=== PATIENT | female | born 1970 | race Caucasian/White ===

== ENCOUNTER 2024-11-18 08:30 | Inpatient (IN) | payer MEDICAID, SELFPAY ==
[2024-11-18] VITALS (9 sets, daily range): BP systolic 110–167; BP diastolic 61–95; PULSE 78–111; RESP 14–28; TEMP 36.4–36.9; O2SAT 88–98; BMI 31.8; BMI 35.4
--- NOTE | ~2024-11-18 | XR_ITS ---
EXAMINATION: XR CHEST CLINICAL INFORMATION: chest pain COMPARISON: None available. TECHNIQUE: 2 views of the chest were obtained. FINDINGS: Patchy opacity right middle lung lobe. No pneumothorax. No pleural effusion. Cardiomediastinal silhouette size is normal. Metallic plate, cervical spine and T1. XR/XR chest 2V IMPRESSION: Acute airspace disease/pneumonia, right middle lung lobe. Recommend follow-up until resolution since underlying lesion/malignancy cannot be excluded. Electronically signed by: Terell Bishop MD 11/18/2024 09:53 AM EDT
--- NOTE | 2024-11-18 08:29 | ED_ITS ---
HPI - General Adult General Chief complaint: Chest Pain Stated complaint: CP AND NAUSEA PER EMS Source: patient, EMS, RN notes reviewed and old records reviewed Mode of arrival: EMS History of Present Illness ED Provider: Medina HPI narrative: Patient is a 54-year-old female with unknown pmhx presenting from [facility] with complaint of cough, shortness of breath, chest pain, nausea, lower abdominal pain. Has felt weak/fatigued for past few weeks. Hypoxic on EMS arrival, improved with O2. Reports sweats/chills. Denies vomiting, diarrhea, constipation. MD complaint: cough, chest pain Related Data Allergies Allergy/AdvReac Type Severity Reaction Status Date / Time topiramate [From Topamax] Allergy Unknown Verified 11/18/24 08:45 trazodone Allergy Swelling Verified 11/18/24 08:45 Review of Systems 2 Review of Systems: As per HPI Yes all other systems are reviewed and are negative Constitutional: Constitutional: Reports as per HPI [facility] Past Medical History Medical History (Updated 11/18/24 @ 12:53 by NIMESH Santacruz) GERD (gastroesophageal reflux disease) ADHD Hypothyroidism Bipolar 1 disorder Social History Social History Advance Directives: No Advance Directives Information Provided: No Do you have a plan to hurt others: No Plan Physical Exam ED Vital Signs: Vital Signs - 24 hr 11/18/24 08:42 11/18/24 09:07 11/18/24 10:50 Temperature 97.6 F Pulse Rate 86 92 111 H Respiratory Rate 16 24 H 25 H Blood Pressure 117/87 131/95 H 138/95 H Pulse Oximetry 88 L 96 96 Oxygen Delivery Method Room Air Nasal Cannula Nasal Cannula Oxygen Flow Rate 2 2 11/18/24 11:38 Temperature 97.9 F Pulse Rate 110 H Respiratory Rate 28 H Blood Pressure 136/94 H Pulse Oximetry 95 Oxygen Delivery Method Nasal Cannula Oxygen Flow Rate 2 BMI result Body Mass Index 31.8 Vital signs have been reviewed and appear to be correct. Blood pressure normal. Heart rate normal. Respiratory rate normal. Temperature normal. Oxygen saturation hypoxic on room air. Const General: cooperative, no acute distress, alert, awake and ill appearing acutely Orientation/consciousness: oriented to person, oriented to place, oriented to time and patient oriented x3 Limitations: no limitations HENMT Head: Yes normocephalic and Yes atraumatic Ears: external ears normal General nose exam: Normal external nose present Face and sinus: Yes face symmetric Mouth: oropharynx normal and moist mucous membranes Throat: Yes uvula midline Eyes Pupils: Equal, round and reactive pupils present Neck Neck: Yes normal visual inspection and Yes supple Resp Effort & Inspection: normal respiratory effort and able to speak in complete sentences Auscultation: diminished lung sounds diffuse Cardio Rate: regular rate Rhythm: regular rhythm Heart sounds: S1 normal heart sound present and S2 normal heart sound present GI Palpation (GI): Soft to palpation and nontender Auscultation: normoactive bowel sounds General: Yes no CVA tenderness Back/Spine/Pelvis Back: no CVA tenderness Skin General skin exam: elasticity normal, turgor normal and pallor Neuro General: oriented to person, oriented to place, oriented to time, patient oriented x3, moves all extremities, no focal motor deficits and CN's II-XI intact bilaterally Cranial nerves: Yes Equal, round and reactive pupils present Cognition (Neuro): normal cognition Extrem General: Yes full ROM, Yes no pedal edema and Yes no calf tenderness Psych Mental Status: mental status grossly normal Affect: normal affect Thought process: Normal thought process present Medications Administered Generic Name Dose Route Start Last Admin Trade Name Freq PRN Reason Stop Dose Admin Enoxaparin Sodium 40 mg 11/18/24 12:00 11/18/24 13:40 Enoxaparin Sodium 40 Mg/0.4 Ml Syringe SUBCUT 40 mg Q24H MICHAEL Administration Discontinued Medications Generic Name Dose Route Start Last Admin Trade Name Freq PRN Reason Stop Dose Admin Ceftriaxone Sodium 1 gm 11/18/24 10:44 11/18/24 11:47 Ceftriaxone Sodium 1 Gm Vial IVPUSH 11/18/24 10:45 1 gm ONCE ONE Administration Doxycycline Hyclate 100 mg/ 250 mls @ 166.67 mls/hr 11/18/24 10:44 11/18/24 11:57 Sodium Chloride IV 11/18/24 12:13 166.67 mls/hr ONCE ONE Administration Ondansetron HCl 4 mg 11/18/24 09:09 11/18/24 09:16 Ondansetron Hcl 4 Mg/2 Ml Vial IVPUSH 11/18/24 09:10 4 mg ONCE ONE Administration Medical Decision Making Medical Decision Making MDM Narrative: Patient is a 54-year-old female with unknown pmhx presenting from [facility] with complaint of cough, shortness of breath, chest pain, nausea, lower abdominal pain. On exam patient is awake, A+Ox3, hypoxic on room air, VS otherwise WNL, afebrile, normal neurological exam without focal deficits, physical exam findings as above. Given reported symptoms and physical exam findings, initial differential includes but is not limited to viral illness, COVID, flu, RSV, bronchitis, pneumonia. Unlikely ACS. Labs notable for leukocytosis, negative troponin. X-ray chest notable for right middle lobe pneumonia. My interpretation is in agreement with the radiologist's interpretation. Blood cultures, lactic, and IV antibiotics ordered. Differential Diagnosis Differential Diagnoses: The differential diagnosis associated with the presentation includes As per [facility] Admission/Observation Consideration of admission/observation: Escalation of care including admission/observation considered Consult Healthcare Provider Management of the patient was discussed with: Hospitalist Lab Data [facility] Lab Attestation statement: I reviewed the patient's lab results. As per [facility] 11/18/24 09:03 11/18/24 09:03 Labs: Lab Results 11/18/24 11/18/24 11/18/24 Range/Units 09:03 11:18 11:33 WBC 13.7 H (4.8-10.8) X10*3/uL RBC 4.47 (4.20-5.50) X10*6/uL Hgb 12.8 (12.0-16.0) g/dl Hct 40.6 (37.0-47.0) % MCV 90.8 (80.0-98.0) fL MCH 28.6 (27.0-33.0) pg MCHC 31.5 (31.0-35.0) g/dl RDW 13.1 (11.0-16.0) % Plt Count 360 (160-400) X10*3/uL MPV 9.7 (9.4-12.3) fL Immature Gran % (Auto) 0.4 (0.0-0.4) % Neut % (Auto) 80.6 H (45-73) % Lymph % (Auto) 13.1 L (20-40) % [place] % (Auto) 3.8 (2-11) % Eos % (Auto) 1.6 (0-4) % Baso % (Auto) 0.5 (0-2) % Lymph # (Auto) 1.8 (1.2-4.9) X10*3/uL [place] # (Auto) 0.5 (0.1-1.2) X10*3/uL Eos # (Auto) 0.2 (0.0-0.4) X10*3/uL Baso # (Auto) 0.1 (0.0-0.2) X10*3/uL Abs Immat Gran (auto) 0.05 H (0.00-0.03) X10*3/uL Absolute Neuts (auto) 11.0 H (2.0-8.3) x10*3/uL Absolute Nucleated RBC 0.000 (0.0-0.012) X10*3/uL Nucleated RBC % (auto) 0.0 (0.0-0.2) /100WBC PT 10.9 (10.9-12.4) SEC INR 0.9 (0.9-1.1) Sodium 140 (135-145) mmol/L Potassium 4.3 (3.3-5.1) mmol/L Chloride 106 (96-108) mmol/L Carbon Dioxide 28 (22-29) mmol/L Anion Gap 10 L (12-20) BUN 10 (9-16) mg/dL Creatinine 1.00 (0.5-1.4) mg/dL Estim Creat Clear Calc 77.4 Estimated GFR 58 Random Glucose 117 H (60-115) mg/dL Lactic Acid 2.0 (0.5-2.0) mmol/L Calcium 9.5 (8.4-10.2) mg/dL Magnesium 2.0 (1.6-2.6) mg/dL Total Bilirubin 0.2 (0.0-1.0) mg/dL AST 34 H (5-31) U/L ALT 42 H (0-31) U/L Alkaline Phosphatase 94 (39-117) U/L Troponin I Hi Sens Base < 2.7 (<3.5-17.0) ng/L Troponin I Hi Sens 2 Hr < 2.7 (<3.5-17.0) ng/L B-Natriuretic Peptide < 10 (<100) pg/mL Total Protein 7.3 (6.5-8.0) g/dL Albumin 4.2 (3.5-5.0) g/dL Lipase 15 (8-78) U/L Influenza Type A (PCR) NEGATIVE (Negative) Influenza Type B (PCR) NEGATIVE (Negative) RSV RNA Qual (PCR) NEGATIVE (Negative) SARS-CoV-2 RNA (RT-PCR) NEGATIVE (Negative) Independent Interpretation I performed an independent interpretation of an: Plain X-Ray Interpretation: Chest x-ray notable for right middle lobe pneumonia Radiology Impression Discussion of test interpretation with radiology: I have reviewed the radiologist's reading. Radiologist Impression: ECHNIQUE: 2 views of the chest were obtained. FINDINGS: Patchy opacity right middle lung lobe. No pneumothorax. No pleural effusion. Cardiomediastinal silhouette size is normal. Metallic plate, cervical spine and T1. XR/XR chest 2V IMPRESSION: Acute airspace disease/pneumonia, right middle lung lobe. Recommend follow-up until resolution since underlying lesion/malignancy cannot be excluded. External Record Review External record reviewed: Inpatient record, Office record and Outpatient record Prescription Management I considered prescription management with: Antibiotic Discharge Plan Discharge Clinical Impression: Right middle lobe pneumonia Patient Disposition: Admitted As Inpatient
--- NOTE | 2024-11-18 08:30 | ECG_ITS ---
Test Reason : ABD PAIN Blood Pressure : */* mmHG Vent. Rate : 101 BPM Atrial Rate : 101 BPM P-R Int : 170 ms QRS Dur : 82 ms QT Int : 372 ms P-R-T Axes : 40 11 36 degrees QTcB Int : 482 ms Sinus tachycardia Low voltage QRS Nonspecific T wave abnormality Abnormal ECG No previous ECGs available Referred By: Valarie Haney Electronically Signed By: MIROSLAVA CLAY
--- NOTE | 2024-11-18 09:06 | PC.NURSE ---
20g IV access established in right AC. Labs obtained and sent to lab for analysis. Awaiting results.
[2024-11-18 09:07] LABS: MANUAL DIFF FLAG NO
--- NOTE | 2024-11-18 09:11 | PC.NURSE ---
Valarie Haney,[employer]UCC[employer] PLASTERER at bedside for evaluation. Plan to administer medication for nausea and obtain imaging. On 2LPM oxygen via nasal cannula at this time. Tachypnic. Alert & oriented, but drowsy/sleepy. Agreeable to plan of care. Provider agreed to give sips of water after nausea medication is administered.
[2024-11-18 09:12] LABS: Basophils Absolute Auto 0.1 X10*3/uL (0.0-0.2); Basophils Percent Auto 0.5 % (0-2); Eosinophils Absolute Auto 0.2 X10*3/uL (0.0-0.4); Eosinophils Percent Auto 1.6 % (0-4); Hematocrit 40.6 % (37.0-47.0); Hemoglobin 12.8 g/dl (12.0-16.0); Imm Gran Abs Auto 0.05 X10*3/uL (0.00-0.03); Imm Gran Pct Auto 0.4 % (0.0-0.4); Lymphocytes Absolute Auto 1.8 X10*3/uL (1.2-4.9); Lymphocytes Percent Auto 13.1 % (20-40); Mean Corpuscular HGB Conc 31.5 g/dl (31.0-35.0); Mean Corpuscular Hemoglobin 28.6 pg (27.0-33.0); Mean Corpuscular Volume 90.8 fL (80.0-98.0); Mean Platelet Volume 9.7 fL (9.4-12.3); Monocytes Absolute Auto 0.5 X10*3/uL (0.1-1.2); Monocytes Percent Auto 3.8 % (2-11); Neutrophils Percent Auto 80.6 % (45-73); Platelet Count 360 X10*3/uL (160-400); Red Blood Count 4.47 X10*6/uL (4.20-5.50); Red Cell Distribution Width 13.1 % (11.0-16.0); White Blood Count 13.7 X10*3/uL (4.8-10.8)
[2024-11-18] MEDS: ondansetron HCL 4 MG/2 ML VIAL IVPUSH (09:16)
[2024-11-18 09:20] LABS: INTERNATIONAL NORM RATIO 0.9 (0.9-1.1); Prothrombin Time 10.9 SEC (10.9-12.4)
[2024-11-18 09:37] LABS: Alanine Aminotransferase 42 U/L (0-31); Albumin Level 4.2 g/dL (3.5-5.0); Alkaline Phosphatase 94 U/L (39-117); Anion Gap 10 (12-20); Aspartate Amino Transferase 34 U/L (5-31); Bilirubin Total 0.2 mg/dL (0.0-1.0); Blood Urea Nitrogen 10 mg/dL (9-16); Calcium 9.5 mg/dL (8.4-10.2); Carbon Dioxide 28 mmol/L (22-29); Chloride 106 mmol/L (96-108); Creatinine Clr Calc Pharmacy 77.4; Estimated Glomerular Filt Rate 58; Glucose Random 117 mg/dL (60-115); Lipase 15 U/L (8-78); Potassium 4.3 mmol/L (3.3-5.1); Sodium 140 mmol/L (135-145); Total Protein 7.3 g/dL (6.5-8.0)
[2024-11-18 09:38] LABS: B Type Natriuretic Peptide < 10 pg/mL (<100)
[2024-11-18 09:47] LABS: Troponin-I High Sens Reflx 2hr < 2.7 ng/L (<3.5-17.0)
[2024-11-18 09:57] LABS: Influenza A PCR NEGATIVE (Negative); Influenza B PCR NEGATIVE (Negative); Resp Syncy Virus RNA Qual PCR NEGATIVE (Negative); SARS COV2 PCR INHOUSE NEGATIVE (Negative)
--- OUTSIDE RECORDS SUMMARY | 2024-11-18 10:06 | XMS_ITS | Encounter Summary ---
Author Organization [employer] Address [address] [place] [address] Care Team Providers Care Diamond Grinder Name Role Phone Leah Lewis Primary Care Provider [phone] Encounter Details Date Type Department Care Team (Late st Contact Info) Description 08/01/2024 Telephone [facility] [address] [place] [address] Leah Lewis FNP [address] [place] [address] Social History Tobacco Use Types Packs/Day Years Used Date Smoking Tobacco: Never Smokeless Tobacco: Never Alcohol Use Standard Drinks/Week Comments Never 0 (1 standard drink = 0.6 oz pur e alcohol) Alcohol Answer Date Recorded Q1: How often do you have a drink containing alc ohol? 1 05/10/2024 Q2: How many drinks containi ng alcohol do you have on a typical day when you are drinking? 0 05/10/2024 Q3: How often do you have six or more drinks on one occasion? 1 05/10/2024 Housing Stability Answer Date Recorded What is your housing situation today? I have connor stewart 05/10/[address] you li ve. Do you have problems with any of the following? None of the above 05/10/2024 Food Insecurity Answer Date Recorded Within the past 12 months, y ou worried that your food would run out before you got money to buy more: Never True 05/10/2024 Within the past 12 months,th e food you bought just didn't last and you didn't have enough money to get more: Never True Transportation Answer Date Recorded In the past 12 months, has l ack of transportation kept you from medical appts, meetings, work or from getting things needed for daily living? No 05/10/2024 Utilities Answer Date Recorded In the past 12 months, has t he electric, gas, oil or water company threatened to shut off services in your home? No 05/10/2024 Depression Answer Date Recorded Patient Health Questionnaire-2 Score 0 05/10/2024 Internet Access Answer Date Recorded Internet Access Q1 Yes 05/10/2024 Internet Access Q2 Not on file 05/10/2024 Comments Unknown Sex and Gender Information Value Date Recorded Sex Assigned at Female 03/11/2024 1:37 PM EDT Legal Sex Female 1:10 PM EDT Gender Identity Female 03/11/2024 1:37 PM EDT Sexual Orientation Straight 03/11/2024 1: 37 PM EDT documented as of this encounter Miscellaneous Notes * Telephone Encounter - Lamar Bullock - 08/08/2024 10:52 AM EST Processed and faxed Auth #[id number] Valid 08/08/24-08/08/25 Visits: 6 * Telephone Encounter - Samantha Bishop - 08/01/2024 2:00 PM EST Verified Insurance: Yes Referral Office: Dr Abebe in [place] Diagnosis Code: ear & deviated septum Number of Visits Needed:6 NPI# of Facility: NPI# of Provider being referred to: Phone #: Fax #: documented in this encounter Plan of Treatment Upcoming Encounters Date Type Department Care Team (Late st Contact Info) Description 11/21/2024 1:00 PM EDT Office Visit [address] [address] Leah Lewis FNP [address] [place] [phone] 12/26/2024 12:40 PM EDT Office Visit [address] [address] Leah Lewis FNP [address] [place] [address] 10/09/2025 1:00 PM EDT Office Visit [address] [address] Leah Lewis FNP [address] [place] [address] documented as of this encounter Visit Diagnoses Not on filedocumented in this encounter Care Teams Diamond Grinder Relationship Specialty Start Date End Date Leah Lewis FNP [address] [place] [address] PCP - General Family Medicine 03/11/24 documented as of this encounter
--- OUTSIDE RECORDS SUMMARY | 2024-11-18 10:06 | XMS_ITS | Encounter Summary ---
Author Organization [employer] Address [address] [place] [address] Care Team Providers Care Laundry Worker Name Role Phone Leah Lewis Primary Care Provider [phone] Encounter Details Date Type Department Care Team (Late st Contact Info) Description 06/02/2024 Orders Only [facility] [address] [place] [phone] Leah Lewis FNP [address] [place], [place] [phone] Social History Tobacco Use Types Packs/Day Years [...] PM EDT documented as of this encounter Plan of Treatment Upcoming Encounters Date Type Department Care Team (Late st Contact Info) Description 11/21/2024 1:00 PM EDT Office Visit [address] [address] Leah Lewis FNP [address] [place] [phone] 12/26/2024 12:40 PM EDT Office Visit [address] [address] Leah Lewis FNP [address] [place] [phone] 10/09/2025 1:00 PM EDT Office Visit [address] [address] Leah Lewis FNP [address] [place] [phone] documented as of this encounter Visit Diagnoses Not on filedocumented in this encounter Care Teams Laundry Worker Relationship Specialty Start Date End Date Leah Lewis FNP [address] [place] [phone] PCP - General Family Medicine 03/11/24 documented as of this encounter
--- OUTSIDE RECORDS SUMMARY | 2024-11-18 10:07 | XMS_ITS | Clinical Summary ---
Author Organization [employer] Address [address] [facility] 7t [place] [address] Care Team Providers Care Electroless Plater Name Role Phone Leah Lewis Primary Care Provider [phone] Allergies Active Allergy Reactions Criticality Noted Date Comments Topiramate Unknown 05/10/2024 Trazodone Unknown 05/10/2024 Medications Adderall 10 MG tablet Take 10 mg by mouth. 03/19/20 24 Active Wellbutrin SR 150 MG 12 hr tablet Take 150 mg by mouth. 12/04/19 18 Active clonazePAM (KlonoPIN) 1 MG tablet TAKE 1 TABLET BY MOUTH THREE TIMES A DAY DIRECTED Active lithium 300 MG capsule Take 300 mg by mouth. 03/19/20 24 Active omeprazole OTC (PriLOSEC OTC) 20 MG EC tablet Take 1 tablet (20 mg) by mouth 2 times daily. Do not crush, chew, or split. 84 tablet 11 05/10/20 24 025 Active acetaminophen (Tylenol) 500 MG tablet Take 2 tablets (1,000 mg) by mouth every 6 (six) hours if needed for moderate pain. 90 tablet 08/17/19 25 Active gabapentin (Neurontin) 300 MG capsuleIndication s:Low back pain at multiple sites Take 1 capsule (300 mg) by mouth if needed in the morning, at noon, in the evening, and at bedtime (prn). 90 capsule 11 10/08/19 25 026 Active levothyroxine (Synthroid) 125 MCG tabletIndications :Other specified hypothyroidism Take 1 tablet (125 mcg) by mouth before breakfast. 30 tablet 1 10/13/19 25 026 Active phentermine 15 MG capsuleIndication s:Class 1 obesity Take 1 capsule (15 mg) by mouth before breakfast. 30 capsule 11/04/19 25 025 Active Tirzepatide-Weigh t Management (Zepbound) 2.5 MG/0.5ML solution auto-injectorIndi cations:Obesity Inject 0.5 mL (2.5 mg) under the skin every 7 (seven) days for 28 days. 2 mL 11/09/19 25 025 Active phentermine 15 MG capsuleIndication s:Class 1 obesity Take 1 capsule (15 mg) by mouth before breakfast. 30 capsule 11/02/19 25 025 Discontinued(R eorder (will not trigger notification to Pharmacy)) Active Problems Problem Noted Date Diagnosed Date Dysplasia of cervix 06/21/2024 Dysmenorrhea 06/21/2024 Deviated nasal septum 06/21/2024 Cyst of ovary 06/21/2024 Constipation 06/21/2024 Cocaine dependence, episodic 06/21/2024 Class 1 obesity 06/21/2024 Dysuria 06/21/2024 Excoriation 06/21/2024 Fibromyositis 06/21/2024 Perineal pain 06/21/2024 Neck pain 06/21/2024 Methicillin resistant Staphylococcus aureus infe ction 06/21/2024 Postoperative pain 06/21/2024 Pyelonephritis 06/21/2024 Renal colic 06/21/2024 Right lower quadrant pain 06/21/2024 Sinusitis 06/21/2024 Urinary tract infectious disease 06/21/2024 Vitamin D deficiency 08/25/2023 Bruises easily 08/05/2023 Hereditary and idiopathic neuropathy, unspecifie d 08/05/2023 History of traumatic injury of head 08/05/2023 Shoulder joint pain 08/05/2023 Refused influenza vaccine 08/05/2023 Sleep disorder 08/05/2023 HDL deficiency 02/24/2023 Other specified hypothyroidism 02/24/2023 Opioid dependence in remission 02/24/2023 Pure hypertriglyceridemia 02/24/2023 Memory loss 02/22/2018 Right-sided low back pain with sciatica 02/23/20 18 Cervical postlaminectomy syndrome 08/20/2015 Spinal stenosis in cervical region 08/20/2015 Cervical disc disease with myelopathy 08/20/2015 Cervical spondylosis without myelopathy 05/02/20 14 Overview (06/21/2024): Cervical spondylosis without myelopathy Carpal tunnel syndrome 09/18/2010 Pain of hand 08/21/2010 Attention deficit disorder without hyperactivity 07/16/2010 Bipolar affective disorder 07/16/2010 Cocaine abuse 07/16/2010 Anxiety disorder 07/16/2010 Encounters Date Type Department Care Team Description 11/16/2024 8:00 AM EDT Community Care Management [facility] [address] [place] [address] Ramila Whitten 11/15/[address] [address] Leah Lewis FNP 11/08/2024 Orders Only [address] [phone] Leah Lewis FNP Severe obesity due to excess calories with serious comorbidity and body mass index (BMI) 120% of 95th percentile to less than 140% of 95th percentile for age in pediatric patient ([facility]) (Primary Dx) 11/08/[address] [address] Leah Lewis FNP 11/02/[address] [address] Leah Lewis FNP Class 1 obesity 11/01/2024 1:20 PM EDT Office Visit [address] [address] Leah Lewis FNP Class 1 obesity (Primary Dx); Bilateral low back pain without sciatica, unspecified chronicity; Other specified hypothyroidism; Hypothyroidism due to medication 10/24/[address] [address] Leah Lewis FNP 10/20/[address] [address] Leah Lewis FNP Colon Cancer Screening 10/11/2024 Telephone [facility] [address] [place] [address] Leah Lewis FNP 10/11/2024 Telephone [facility] [address] [place] [address] Leah Lewis FNP 10/07/2024 7:40 AM EDT Office Visit [address] [address] Leah Lewis FNP Routine general medical examination at a health care facility (Primary Dx); Low back pain at multiple sites; Encounter for screening mammogram for malignant neoplasm of breast; Gastroesophageal reflux disease with esophagitis without hemorrhage; Bipolar 1 disorder ([facility]) 10/07/2024 Orders Only [address] [address] Leah Lewis FNP Other specified hypothyroidism (Primary Dx) 10/07/[address] [address] Leah Lewis FNP 10/07/2024 Population Health Risk Score [facility] Department [address] [place] [phone] Provider, Population Health Generic 10/05/2024 8:00 AM EDT Community Care Management [facility] [address] [facility] [address] [place] [address] Ramila Whitten 10/05/[address] [place] [address] Leah Lewis FNP 10/04/2024 12:00 PM EDT Community Care Management [facility] [address] [facility] [address] [place] [address] Danielle Mendez 10/04/[address] [address] Leah Lewis FNP 10/03/2024 8:00 AM EDT Community Care Management [facility] [address] [facility] [address] [place] [address] Danielle Mendez 09/30/[address] [facility] [address] [place] [address] Leah Lewis FNP Other specified hypothyroidism (Primary Dx) 09/28/2024 12:05 PM EST Community Care Management [facility] [address] [facility] [address] [place] [phone] MichaelDanielle montgomery 09/28/2024 Telephone [facility] [address] [place] [address] Leah Lewis FNP 08/22/[address] [facility] [address] [place] [address] Leah Lewis FNP from Last 3 Months Immunizations Name Administration Dates Next Due DTaP, Unspecified 02/17/2012 Hep B, Unspecified 02/19/2012 Tdap 08/05/2023 Social History Tobacco Use Types Packs/Day Years Used Date Smoking Tobacco: Never Smokeless Tobacco: Never Tobacco Cessation:Counseling Given: Not Answered Alcohol Use Standard Drinks/Week Comments Never 0 [...] Orientation Straight 03/11/2024 1: 37 PM EDT Last Filed Vital Signs Vital Sign Reading Time Taken Comments Blood Pressure 117/84 11/01/2024 12:57 PM EDT Pulse 100 11/01/2024 12:57 PM EDT Temperature 36.1 ??C (97 ??F) 11/01/2024 12:57 PM EDT Respiratory Rate - - Oxygen Saturation 99% 11/01/2024 12:57 PM EDT Inhaled Oxygen Concentration - - Weight 101 kg (222 lb) 11/01/2024 12:57 PM EDT Height 171.5 cm (5' 7.52 ) 11/01/2024 12:57 PM E DT Body Mass Index 34.24 11/01/2024 12:57 PM EDT Plan of Treatment Upcoming Encounters Date Type Department Care Team (Late st Contact Info) Description 11/21/2024 1:00 PM EDT Office Visit [address] [address] Leah Lewis FNP [address] [place] [address] 12/26/2024 12:40 PM EDT Office Visit [address] [address] Leah Lewis FNP [address] [place] [address] 10/09/2025 1:00 PM EDT Office Visit [address] [address] Leah Lewis, ALARM SECURITY OR SURVEILLANCE MONITOR [address] [place] [address] Health Maintenance Due Date Last Done Comments CT Colonography 1970 Colonoscopy 1970 FIT DNA/Cologuard 1970 FIT 1970 FOBT 1970 HIV Screening 1970 Sigmoidoscopy 1970 Hepatitis C Screening 1988 Pap Smear 1991 HPV/Cotest 2000 Hepatitis B Vaccines (2 of 3 - 19+ 3-dose series) 03/18/2012 02/19/2012 Pneumococcal Vaccine: 50+ Years (1 of 1 - PCV) 2020 Zoster Vaccines (1 of 2) 2020 Cervical Cancer Screening 01/05/2025 Po stponed from 2000 (Patient Refused) Colorectal Cancer Screening 01/05/2025 Postponed from 1970 (Patient Refused) Mammogram 01/05/2025 Postponed from 2010 (Patient Refused) Influenza Vaccine (#1) 2025 Postp oned from 03/27/2024 (Patient Refused) Alcohol/Substance Use Screening 05/10/2025 05/10/2024 Depression Screening 05/10/2025 05/10/2024, 05/10/2024 SDOH Screening 05/10/2025 05/10/2024 COVID-19 Vaccine (1 - 2023-2 5 season) 2025 Postponed from 03/27 (Patient Refused) Tobacco Screening 06/21/2025 06/21/2024 Lipid Panel 10/07/2029 10/07/2024 DTaP/Tdap/Td Vaccines (3 - T d or Tdap) 08/05/2033 08/05/2023, 02/17/2012 RSV Patients and Patients Aged 60 years or older (1 - 1-dose 75+ series) 2045 HIB Vaccines Aged Out No longer eligi ble based on patient's age to complete this topic HPV Vaccines Aged Out No longer eligi ble based on patient's age to complete this topic Hepatitis A Vaccines Aged Out No long er eligible based on patient's age to complete this topic IPV Vaccines Aged Out No longer eligi ble based on patient's age to complete this topic Meningococcal Vaccine Aged Out No yimi eal eligible based on patient's age to complete this topic RSV under 20 months Aged Out No longe r eligible based on patient's age to complete this topic Rotavirus Vaccines Aged Out No longer eligible based on patient's age to complete this topic Procedures Procedure Name Priority Date/Time Associated Diagnosis Comments AMB REFERRAL TO ENT Routine 10/18/2024 Snores History of nasal obstruction T4, FREE Routine 10/07/2024 8:58 AM EDT HEMOGLOBIN A1C Routine 10/07/2024 8:58 AM EDT Routine general medical examination at a [facility] Bipolar 1 disorder ([facility]) LIPID PANEL, STANDARD Routine 10/07/2024 8:58 AM EDT Routine general medical examination at a [facility] Bipolar 1 disorder ([facility]) LITHIUM Routine 10/07/2024 8:58 AM EDT Routine general medical examination at a [facility] Bipolar 1 disorder ([facility]) CBC WITH AUTO DIFFERENTIAL Routine 10/07/2024 8:58 AM EDT Routine general medical examination at a [facility] Bipolar 1 disorder ([facility]) TSH W/REFLEX TO FT4 Routine 10/07/2024 8 :58 AM EDT Routine general medical examination at a [facility] Bipolar 1 disorder ([facility]) COMPREHENSIVE METABOLIC PANEL Routine 10/07/2024 8:58 AM EDT Routine general medical examination at a [facility] Bipolar 1 disorder ([facility]) from Last 3 Months Results * Referral to ENT (10/18/2024) Leah Lewis [facility] OUTPATIENT REFERRAL ORDERABLES E dited Result - Final * (ABNORMAL) TSH with Reflex to Free T4 (10/07/2024 8:58 AM EDT) Pathologist [facility] TSH w/Reflex to FT4 107.27(H) mIU/L [facility] Before [facility] Comment: ?Reference Range ?> or = 20 Years ??0.40-4.50 ? Ranges ?First trimester ?0.26-2.66 ?Second trimester ?? 0.55-2.73 ?Third trimester ?0.43-2.91 Blood 10/07/2024 8:58 AM EDT 10/07/2024 8:[address] [facility] - 10/08/2024 6:37 AM EDT FASTING:NO FASTING: NO us Leah Lewis ALARM SECURITY OR SURVEILLANCE MONITOR LAB BLOOD ORDERABLES Final Resul t [facility] [address], [place] [address] [facility] [address] [place] [address] * (ABNORMAL) CBC auto differential (10/07/2024 8:58 AM EDT) [facility] White Blood Cell Count 9.4 3.8 - 10.8 Thousand/ uL [facility] [place] [facility] Red Blood Cell Count 4.05 3.80 - 5.10 Million/u L [facility] [place] [facility] Hemoglobin 12.2 11.7 - 15.5 g/dL [facility] [place] [facility] Hematocrit 36.9 35.0 - 45.0 % [facility] MCV 91.1 80.0 - 100.0 fL [facility] [place] [facility] MCH 30.1 27.0 - 33.0 pg [facility] [place] [facility] MCHC 33.1 32.0 - 36.0 g/dL [facility] [place] [facility] Comment: For adults, a slight decrease in the calculated MCHC value (in the range of 30 to 32 g/dL) is most likely not clinically significant; however, it should be interpreted with caution in correlation with other red cell parameters and the patient's clinical condition. RDW 12.6 11.0 - 15.0 % [facility] [place] [facility] Platelet Count 343 140 - 400 Thousand/ uL [facility] [place] Before [facility] MPV 9.7 7.5 - 12.5 fL [facility] [place] Before [facility] Absolute Neutrophils 5,217 1,500 - 7,800 cells/uL [facility] [place] Before [facility] Absolute Lymphocytes 2,961 850 - 3,900 cells/uL [facility] [place] Before [facility] Absolute Monocytes 602 200 - 950 cells/uL [facility] [place] Before [facility] Absolute Eosinophils 536(H) 15 - 500 cells/uL [facility] [place] Before [facility] Absolute Basophils 85 0 - 200 cells/uL [facility] [place] [facility] Neutrophils 55.5 % [facility] Lymphocytes 31.5 % [facility] [place] [facility] Monocytes 6.4 % [facility] Before the Call[facility] Eosinophils 5.7 % [facility] [place] Before [facility] Basophils 0.9 % [facility] [place] Before the [facility] Blood Venous blood specimen / Unknown 10/07/2024 8:58 AM EDT 10/07/2024 8:58 AM EDT Narrative [facility] - 10/08/2024 6:37 AM EDT FASTING:NO FASTING: NO us Leah Lewis ALARM SECURITY OR SURVEILLANCE MONITOR LAB BLOOD ORDERABLES Final Resul t [facility] [address], [place] [address] [facility] [place] [facility] [address] [place] [address] * T4, Free (10/07/2024 8:58 AM EDT) T4, Free 0.9 0.8 - 1.8 ng/dL [facility] [place] [facility] 10/07/2024 8:58 AM EDT 10/07/2024 8:58 AM EDT Narrative [facility] - 10/08/2024 6:37 AM EDT FASTING:NO FASTING: NO Leah Lewis [facility] LAB BLOOD ORDERABLES Final Resul t Performing Organization Address [facility] Co de Phone Number [address], [place] [address] [facility] [place] [facility] [address] [place] [address] * (ABNORMAL) Hemoglobin A1c (10/07/2024 8:58 AM EDT) Hemoglobin A1c 6.2(H) <5.7 % of total Hgb [facility] [place] [facility] Comment: For someone without known diabetes, a hemoglobin A1c value between 5.7% and 6.4% is consistent with prediabetes and should be confirmed with a follow-up test. For someone with known diabetes, a value <7% indicates that their diabetes is well controlled. A1c targets should be individualized based on duration of diabetes, age, comorbid conditions, and other considerations. This assay result is consistent with an increased risk of diabetes. Currently, no consensus exists regarding use of hemoglobin A1c for diagnosis of diabetes for children. Blood Venous blood specimen / Unknown 10/07/2024 8:58 AM EDT 10/07/2024 8:58 AM EDT Narrative [facility] - 10/08/2024 6:37 AM EDT FASTING:NO FASTING: NO Leah Lewis [facility] LAB BLOOD ORDERABLES Final Resul t Performing Organization Address [facility] Co de Phone Number [address], [facility] [place] [address] [facility] [place] [facility] [address] [place] [address] * [place] (10/07/2024 8:58 AM EDT) [place] 0.6 0.6 - 1.2 mmol/L [facility] [place] [facility] Blood Venous blood specimen / Unknown 10/07/2024 8:58 AM EDT 10/07/2024 8:58 AM EDT Narrative [facility] - 10/08/2024 6:37 AM EDT FASTING:NO FASTING: NO us Leah Lewis ALARM SECURITY OR SURVEILLANCE MONITOR LAB BLOOD ORDERABLES Final Resul t [facility] [address], [place] [address] [facility] [place] [facility] [address] [place] [address] * (ABNORMAL) Lipid Panel, Standard (10/07/2024 8:58 AM EDT) [facility] Signature Cholesterol, Total 176 <200 mg/dL [facility] [place] [facility] HDL Cholesterol 47(L) > OR = 50 mg/dL [facility] [place] [facility] Triglycerides 261(H) <150 mg/dL [facility] [place] [facility] Comment: If a non-fasting specimen was collected, consider repeat triglyceride testing on a fasting specimen if clinically indicated. Nikkie et al. J. of Clin. Lipidol. 2015;9:129-169. LDL Cholesterol 95 mg/dL [facility] [employer] [place] [facility] Comment: Reference range: <100 Desirable range <100 mg/dL for primary prevention; ?? <70 mg/dL for patients with CHD or diabetic patients with > or = 2 CHD risk factors. LDL-C is now calculated using the Jose Antonio-Tamir calculation, which is a validated novel method providing better accuracy than the Friedewald equation in the estimation of LDL-C. Jose Antonio RAZO et al. PEE. 2013;310(19): 4797-1814 (http://education.Instinctiv/faq/CUK254) Chol/HDLC Ratio 3.7 <5.0 (calc) [facility] [place] [facility] Non-HDL Cholesterol 129 <130 mg/dL [facility] [place] [facility] Comment: For patients with diabetes plus 1 major ASCVD risk factor, treating to a non-HDL-C goal of <100 mg/dL (LDL-C of <70 mg/dL) is considered a therapeutic option. Blood Venous blood specimen / Unknown 10/07/2024 8:58 AM EDT 10/07/2024 8:58 AM EDT Narrative [facility] - 10/08/2024 6:37 AM EDT FASTING:NO FASTING: NO Leah Lewis [facility] LAB BLOOD ORDERABLES Final Resul t [facility] [address], [place] [address] [facility] [place] [facility] [address] [place] [address] * (ABNORMAL) Comprehensive Metabolic Panel (10/07/2024 8:58 AM EDT) Pathologist [facility] Glucose 83 65 - 139 mg/dL [facility] [place] [facility] Comment: ? Non-fasting reference interval Urea Nitrogen (BUN) 14 7 - 25 mg/dL [facility] [place] [facility] Creatinine, Serum 0.91 0.50 - 1.03 mg/dL [facility] [place] [facility] eGFR 75 > OR = 60 mL/min/1. 73m2 [facility] [place] [facility] BUN/Creatinine Ratio SEE NOTE: 6 - 22 (calc) [facility] [place] [facility] Comment: ?? Not Reported: BUN and Creatinine are within ?? reference range. ? Sodium 140 135 - 146 mmol/L [facility] [place] [facility] Potassium 4.5 3.5 - 5.3 mmol/L [facility] [place] [facility] Chloride 102 98 - 110 mmol/L [facility] [place] [facility] Carbon Dioxide 33(H) 20 - 32 mmol/L [facility] Calcium 9.4 8.6 - 10.4 mg/dL [facility] Protein, Total 7.1 6.1 - 8.1 g/dL [facility] [place] [facility] Albumin 4.4 3.6 - 5.1 g/dL [facility] [place] [facility] Globulin 2.7 1.9 - 3.7 g/dL (calc) [facility] [place] [facility] Albumin/Globuli n Ratio 1.6 1.0 - 2.5 (calc) [facility] [place] [facility] Bilirubin, Total 0.2 0.2 - 1.2 mg/dL [facility] Alkaline Phosphatase 67 37 - 153 U/L [facility] AST 20 10 - 35 U/L [facility] ALT 27 6 - 29 U/L [facility] Blood Venous blood specimen / Unknown 10/07/2024 8:58 AM EDT 10/07/2024 8:58 AM EDT Narrative [facility] - 10/08/2024 6:37 AM EDT FASTING:NO FASTING: NO us Leah JAUREGUI LAB BLOOD ORDERABLES Final Resul t [facility] [address], [place] [address] [facility] [place] [facility] [address] [place] [address] from Last 3 Months [facility] Care Teams Electroless Plater Relationship Specialty Start Date End Date Leah Lewis FNP [address] [place] [address] PCP - General Family Medicine 03/11/24
--- OUTSIDE RECORDS SUMMARY | 2024-11-18 10:07 | XMS_ITS | Encounter Summary ---
Author Organization [employer] Address [address] 7[address] [place] [address] Care Team Providers Care Credit Collections Rep Name Role Phone Leah Lewis Primary Care Provider [phone] Encounter Details Date Type Department Care Team (Late st Contact Info) Description 10/05/2024 Telephone [facility] [address] [address] Leah Lewis FNP [address] [place] [address] Social History Tobacco Use Types Packs/Day Years [...] encounter Miscellaneous Notes * Telephone Encounter - Ness Joseph - 10/05/2024 11:33 AM EDT Patient would like to check the status of her PT1 documented in this encounter Plan of Treatment Upcoming Encounters Date Type Department Care Team (Late st Contact Info) Description 11/21/2024 1:00 PM EDT Office Visit [address] [address] Leah Lewis FNP [address] [place] [address] 12/26/2024 12:40 PM EDT Office Visit [address] [address] Leah Lewis FNP [address] [place] [address] 10/09/2025 1:00 PM EDT Office Visit [address] [address] Leah Lewis FNP [address] [place] [address] documented as of this encounter Visit Diagnoses Not on filedocumented in this encounter Care Teams Credit Collections Rep Relationship Specialty Start Date End Date Leah Lewis FNP [address] [place] [address] PCP - General Family Medicine 03/11/24 documented as of this encounter
--- OUTSIDE RECORDS SUMMARY | 2024-11-18 10:07 | XMS_ITS | Encounter Summary ---
Author Organization [employer] Address [address] [facility] [address] [place] [address] Care Team Providers Care Cranberry Grower Name Role Phone Leah Lewis SVP CHIEF MARKETING OFFICER Primary Care Provider [phone] Encounter Details Date Type Department Care Team (Late st Contact Info) Description 11/16/2024 8:00 AM EDT Community Care Management [facility] [address] [phone] Ramila Whitten [address] [place] [address] Social History Tobacco Use Types Packs/Day Years [...] PM EDT documented as of this encounter Progress Notes * Ramila Whitten - 11/16/2024 8:00 AM EDT November 16, 2024 PT-1 requested to: Facility Name/Treating Provider: [facility] Facility Location: [address] [place] [address] Requested for PT-1 for 12 months with up to 5 visits per month. Patient does not have a wheelchair. Wheelchair type: N/A Patient does not have an o2 tank. Patient does have an escort. Will notify patient once approved. Pt-1 request# [id number] documented in this encounter Plan of Treatment Upcoming Encounters Date Type Department Care Team (Late st Contact Info) Description 11/21/2024 1:00 PM EDT Office Visit [address] [address] Leah Lewis FNP [address] [place] [address] 12/26/2024 12:40 PM EDT Office Visit [address] [address] Leah Lewis FNP [address] [place] [address] 10/09/2025 1:00 PM EDT Office Visit [address] [address] Leah Lewis FNP [address] [place] [address] documented as of this encounter Visit Diagnoses Not on filedocumented in this encounter Care Teams Cranberry Grower Relationship Specialty Start Date End Date Leah Lewis FNP [address] [place] [address] PCP - General Family Medicine 03/11/24 documented as of this encounter
--- OUTSIDE RECORDS SUMMARY | 2024-11-18 10:07 | XMS_ITS | Encounter Summary ---
Author Organization [employer] Address [address] [facility] 7t [place] [address] Care Team Providers Care Psychiatry Resident Name Role Phone Leha Lewis Primary Care Provider [phone] Encounter Details Date Type Department Care Team (Late st Contact Info) Description 10/07/2024 Telephone [facility] [address] [place] [address] Leah Lewis FNP 102 [place] [address] Social History Tobacco Use Types [...] encounter Miscellaneous Notes * Telephone Encounter - Svetlana Mcleod - 10/14/2024 2:02 PM EDT Letter written and faxed over. Called pt and let her know. * Telephone Encounter - Elio Hayden - 10/10/2024 11:42 AM EDT Patient left a voicemail at 10:15 stating she was told to increase her dosage from 600 MG to 900 MGand she needs a letter stating that she is on the 900 MG now for the program she is in. She said the fax number is [phone], her call back number is [phone] * Telephone Encounter - Lulu Tim - 10/07/2024 1:51 PM EDT Patient was seen by LM this morning , During this visit there gabapentin was increased to 600 mg . Patient needs a note about the increase sent to /2 [facility] . Please fax to [phone] documented in this encounter Plan of Treatment Upcoming Encounters Date Type Department Care Team (Late st Contact Info) Description 11/21/2024 1:00 PM EDT Office Visit [address] [address] Leah Lewis FNP [address] [place] [address] 12/26/2024 12:40 PM EDT Office Visit [address] [address] Leah Lewis FNP [address] [place] [address] 10/09/2025 1:00 PM EDT Office Visit [address] [address] Leah Lewis FNP [address] [place] [address] documented as of this encounter Visit Diagnoses Not on filedocumented in this encounter Care Teams Psychiatry Resident Relationship Specialty Start Date End Date Leah Lewis FNP [address] [place] [address] PCP - General Family Medicine 03/11/24 documented as of this encounter
--- OUTSIDE RECORDS SUMMARY | 2024-11-18 10:07 | XMS_ITS | Encounter Summary ---
Author Organization [employer] Address [address] [facility] [address] 7t [place] [address] Care Team Providers Care Fermenting Cellar Dropper Name Role Phone Leah Lewis Primary Care Provider [phone] Encounter Details Date Type Department Care Team (Late st Contact Info) Description 11/08/2024 Orders Only [facility] 102 [place] [phone] Leah Lewis FNP 102 [place], [place] [id number] Severe obesity due to excess calories with serious comorbidity and body mass index (BMI) 120% of 95th percentile to less than 140% of 95th percentile for age in pediatric patient (CMS/HCC) (Primary Dx) Social History Tobacco Use Types Packs/Day Years [...] Description 11/21/2024 1:00 PM EDT Office Visit [address] [address] Leah Lewis FNP [address] [place] [address] 12/26/2024 12:40 PM EDT Office Visit [address] [address] Leah Lewis FNP [address] [place] [address] 10/09/2025 1:00 PM EDT Office Visit [address] [address] Leah Lewis FNP [address] [place] [address] documented as of this encounter Visit Diagnoses Diagnosis Severe obesity due to excess calories with serious comorbidity and body mass index (BMI) 120% of 95th percentile to less than 140% of 95th percentile for age in pediatric patient ([facility]/HCC)- Primary documented in this encounter Care Teams Fermenting Cellar Dropper Relationship Specialty Start Date End Date Leah Lewis FNP [address] [place] [address] PCP - General Family Medicine 03/11/24 documented as of this encounter
--- OUTSIDE RECORDS SUMMARY | 2024-11-18 10:07 | XMS_ITS | Encounter Summary ---
Author Organization [email or web address] Address [address] [facility] [address] 7t [place] [address] Care Team Providers Care Veterinary Medicine Doctor Name Role Phone Leah Lewis Primary Care Provider [phone] Encounter Details Date Type Department Care Team (Late st Contact Info) Description 10/11/2024 Telephone [facility] [address] [phone] Leah Lewis FNP 102 [place] [address] Social History Tobacco Use Types Packs/Day Years [...] Telephone Encounter - Svetlana Mcleod - 10/14/2024 8:44 AM EDT Faxed last office note again. * Telephone Encounter - Elio Hayden - 10/13/2024 4:18 PM EDT Patient left a voicemail at 3:35 stating her program still has not received the fax, she is asking we try faxing it again. Her call back number is [phone] * Telephone Encounter - Svetlana Mcleod - 10/13/2024 8:43 AM EDT Faxed note to program instructor. * Telephone Encounter - Ness Joseph - 10/13/2024 8:34 AM EDT Please refax the medication change to [phone] AKSEY Ayala program instructor * Telephone Encounter - Ness Joseph - 10/12/2024 4:06 PM EDT Please fax the provider authorization, to her prison ,regarding the increased gabapentin at last Fridays appointment fax # is [phone] PLASE REFAX THEY DID NOT RECIEVE * Telephone Encounter - Svetlana Mcleod - 10/12/2024 8:36 AM EDT Faxed last office note stating new dose of Gabapentin, faxed to Krysten salmon F# [phone]. Calledpt and let her know. * Telephone Encounter - Samantha Bishop - 10/11/2024 4:39 PM EDT Please fax the provider authorization, to her prison ,regarding the increased gabapentin at last Fridays appointment fax # is [phone] * Telephone Encounter - Paul Reyes - 10/11/2024 10:57 AM EDT Patient asking for authorization to take gabapentin (Neurontin) 300 MG 4 times a day documented in this encounter Plan of Treatment Upcoming Encounters Date Type Department Care Team (Late st Contact Info) Description 11/21/2024 1:00 PM EDT Office Visit [address] [address] Leah Lewis FNP [address] [place] [address] 12/26/2024 12:40 PM EDT Office Visit [address] [address] Leah Lewis FNP [address] [place] [address] 10/09/2025 1:00 PM EDT Office Visit [address] [address] Leah Lewis FNP 102 [place] [address] documented as of this encounter Visit Diagnoses Not on filedocumented in this encounter Care Teams Veterinary Medicine Doctor Relationship Specialty Start Date End Date Leah Lewis FNP 102 [place] [address] PCP - General Family Medicine 03/11/24 documented as of this encounter
--- OUTSIDE RECORDS SUMMARY | 2024-11-18 10:07 | XMS_ITS | Encounter Summary ---
Author Organization [employer] Address [address] [facility] 7t [place] [address] Care Team Providers Care Shell Maker Lockstitch Name Role Phone Leah Lewis Primary Care Provider [phone] Encounter Details Date Type Department Care Team (Late st Contact Info) Description 05/23/2024 Telephone [facility] 102 [place] [address] Leah Lewis FNP 102 [place] [address] Social History Tobacco Use Types [...] encounter Miscellaneous Notes * Telephone Encounter - Zohra Stuart - 05/24/2024 8:02 AM EDT Notified that gabapentin was sent in for back pain * Telephone Encounter - Samantha Bishop - 05/23/2024 5:36 PM EDT Left a voicemail to see if anything was sent to the pharmacy for her back pain. Please advise. [phone] documented in this encounter Plan of Treatment Upcoming Encounters Date Type Department Care Team (Late st Contact Info) Description 11/21/2024 1:00 PM EDT Office Visit [address] [address] Leah Lewis FNP [address] [place] [address] 12/26/2024 12:40 PM EDT Office Visit [address] [address] Leah Lewis FNP [address] [place] [address] 10/09/2025 1:00 PM EDT Office Visit [address] [address] Leah Lewis FNP [address] [place] [address] documented as of this encounter Visit Diagnoses Not on filedocumented in this encounter Care Teams Shell Maker Lockstitch Relationship Specialty Start Date End Date Leah Lewis FNP [address] [place] [address] PCP - General Family Medicine 03/11/24 documented as of this encounter
--- OUTSIDE RECORDS SUMMARY | 2024-11-18 10:07 | XMS_ITS | Encounter Summary ---
Author Organization [employer] Address [address] [facility] [address] 7t [place] [address] Care Team Providers Care Pleating Supervisor Name Role Phone Leah Lewis Primary Care Provider [phone] Encounter Details Date Type Department Care Team (Late st Contact Info) Description 09/28/2024 Telephone [facility] [address] [phone] Leah Lewis FNP 102 [place] [address] Social History Tobacco Use Types Packs/Day Years [...] encounter Miscellaneous Notes * Telephone Encounter - Sabina Centeno - 09/28/2024 11:20 AM EST Patient Is calling because they are supposed to have labs done every 6 weeks and is very overdue and would like to review new labs at their physical on 10/07. Would like to specially check lithium andthyroid levels documented in this encounter Plan of Treatment Upcoming Encounters Date Type Department Care Team (Late st Contact Info) Description 11/21/2024 1:00 PM EDT Office Visit [address] [address] Leah Lewis FNP [address] [place] [address] 12/26/2024 12:40 PM EDT Office Visit [address] [place] [address] [address] Leah Lewis FNP [address] [place] [address] 10/09/2025 1:00 PM EDT Office Visit [address] [place] [address] [address] Leah Lewis FNP [address] [place] [address] [place] [address] documented as of this encounter Visit Diagnoses Not on filedocumented in this encounter Care Teams Pleating Supervisor Relationship Specialty Start Date End Date Leah Lewis FNP 102 [place] [address] PCP - General Family Medicine 03/11/24 documented as of this encounter
--- OUTSIDE RECORDS SUMMARY | 2024-11-18 10:07 | XMS_ITS | Encounter Summary ---
Author Organization [employer] Address [address] [facility] [address] 7t [place] [address] Care Team Providers Care Diaphragm Builder Name Role Phone Leah Lewis Primary Care Provider [phone] Encounter Details Date Type Department Care Team (Late st Contact Info) Description 10/11/2024 Telephone [facility] [address] [phone] Leah Lewis FNP 102 [place] [address] Social History Tobacco Use Types Packs/Day Years [...] Description 11/21/2024 1:00 PM EDT Office Visit [address] [address] Leah Lewis FNP [address] [place] [address] 12/26/2024 12:40 PM EDT Office Visit [address] [address] Leah Lewis FNP [address] [place] [address] 10/09/2025 1:00 PM EDT Office Visit [address] [address] Leah Lewis FNP [address] [place] [address] documented as of this encounter Visit Diagnoses Not on filedocumented in this encounter Care Teams Diaphragm Builder Relationship Specialty Start Date End Date Leah Lewis FNP [address] [place] [address] PCP - General Family Medicine 03/11/24 documented as of this encounter
--- OUTSIDE RECORDS SUMMARY | 2024-11-18 10:07 | XMS_ITS | Encounter Summary ---
Author Organization [employer] Address [address] [facility] [address] 7t [place] [address] Care Team Providers Care Section Crews Activities Clerk Name Role Phone Leah Lewis Primary Care Provider [phone] Encounter Details Date Type Department Care Team (Late st Contact Info) Description 11/15/[address] [address] Leah Lewis FNP 102 [place] [address] Social History Tobacco Use Types Packs/Day Years [...] encounter Miscellaneous Notes * Telephone Encounter - Beverley Groves - 11/15/2024 3:42 PM EDT Ayesha Ardon is requesting a PT-1 for a medical appointment. Patient[facility] ID: [id number] Complete Pickup Address (home): [address] [facility] [address] Alternate pickup address (optional): Patient (Home) Emergency Contact Name and Number (optional): Drop off address (list all locations, including name of facility and care being received): [address] [place] [address] How many visits per month needed: 4 Yes or No: Please Check Boxes Below If YES []Member requires door through door or room to room service (For example, the member cannot ambulate or wait independently outside their home/facility for transportation). []Member will be transported in a manual wheelchair []Member will be transported in an electric wheelchair []Member has a service animal []Member has an escort []Member is bariatric []Member carries self-administered oxygen []Transportation request is for [employer] [facility] [facility] documented in this encounter Plan of Treatment Upcoming Encounters Date Type Department Care Team ([facility] st Contact Info) Description 11/21/2024 1:00 PM EDT Office Visit [address] [place] [address] Leah Lewis FNP [address] [place] [address] 12/26/2024 12:40 PM EDT Office Visit [address] [address] Leah Lewis FNP [address] [place] [address] 10/09/2025 1:00 PM EDT Office Visit [address] [address] Leah Lewis FNP [address] [place] [address] documented as of this encounter Visit Diagnoses Not on filedocumented in this encounter Care Teams Section Crews Activities Clerk Relationship Specialty Start Date End Date Leah Lewis FNP [address] [place] [address] PCP - General Family Medicine 03/11/24 documented as of this encounter
--- OUTSIDE RECORDS SUMMARY | 2024-11-18 10:07 | XMS_ITS | Encounter Summary ---
Author Organization [email or web address] Address [address] [facility] 7t [place] [address] Care Team Providers Care Ground Systems Engineer Name Role Phone Leah Lewis Primary Care Provider [phone] Encounter Details Date Type Department Care Team (Late st Contact Info) Description 05/13/2024 Telephone [facility] 102 [place] [address] Leah Lewis FNP 102 [place] [address] Social History Tobacco Use Types [...] encounter Miscellaneous Notes * Telephone Encounter - Ruby Kern - 05/13/2024 2:51 PM EDT Faxed order and let [facility] know. * Telephone Encounter - Taylor Wellington [place] - 05/13/2024 2:49 PM EDT I will fax that over right now * Telephone Encounter - Samantha Bishop - 05/13/2024 2:42 PM EDT Was told to go get a back xray. Had several issues with her back. Please advise, please fax the order to [phone]. Patient is there now, order is referenced in the office notes from 05/10. documented in this encounter Plan of Treatment Upcoming Encounters Date Type Department Care Team (Late st Contact Info) Description 11/21/2024 1:00 PM EDT Office Visit [address] [address] Leah Lewis FNP [address] [place] [address] 12/26/2024 12:40 PM EDT Office Visit [address] [address] Leah Lewis FNP [address] [place] [address] 10/09/2025 1:00 PM EDT Office Visit [address] [address] Leah Lewis FNP [address] [place] [address] documented as of this encounter Visit Diagnoses Not on filedocumented in this encounter Care Teams Ground Systems Engineer Relationship Specialty Start Date End Date Leah Lewis FNP [address] [place] [address] PCP - General Family Medicine 03/11/24 documented as of this encounter
--- OUTSIDE RECORDS SUMMARY | 2024-11-18 10:07 | XMS_ITS | Encounter Summary ---
Author Organization [employer] Address 75 [facility] 7t [place] [address] Care Team Providers Care Binder Operator Name Role Phone Leah Lewis Primary Care Provider [phone] Encounter Details Date Type Department Care Team (Late st Contact Info) Description 05/31/2024 Telephone [facility] 102 [place] [address] Leah Lewis FNP 102 [place] [address] Social History Tobacco Use Types [...] encounter Miscellaneous Notes * Telephone Encounter - JUVENTINO Gonzalez - 06/02/2024 2:41 PM EST duplicate * Telephone Encounter - Lulu Tim - 06/01/2024 2:37 PM EST PT is calling back to check on the status of the increase for the gabapentin as the morning dose isn't working * Telephone Encounter - Samantha Bishop - 05/31/2024 3:51 PM EST Says the gabapentin during the day is not working well but the 300 mg at night is working fine. Please advise. [phone] documented in this encounter Plan of Treatment Upcoming Encounters Date Type Department Care Team (Late st Contact Info) Description 11/21/2024 1:00 PM EDT Office Visit [address] [address] Leah Lewis FNP [address] [place] [address] 12/26/2024 12:40 PM EDT Office Visit [address] [address] Leah Lewis FNP [address] [place] [address] 10/09/2025 1:00 PM EDT Office Visit [address] [address] Leah Lewis FNP [address] [place] [address] documented as of this encounter Visit Diagnoses Not on filedocumented in this encounter Care Teams Binder Operator Relationship Specialty Start Date End Date Leah Lewis FNP [address] [place] [address] PCP - General Family Medicine 03/11/24 documented as of this encounter
--- OUTSIDE RECORDS SUMMARY | 2024-11-18 10:07 | XMS_ITS | Data Portability ---
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 [address] 08/04/2011 15:03:07 08/04/2011 15:51:[id number] [facility] [place] [address] 08/28/2011 11:22:05 08/28/2011 13:27:[id number] [facility] [address] [place] [address] [place] [address] 09/11/2011 10:53:09 09/11/2011 11:30:[id number] [facility] [address] [place] [address] [place] [address] 10/06/2011 15:03:20 10/06/2011 16:24:[id number] [facility] [address] [place] [address] [place] [address] 12/16/2011 13:55:15 12/16/2011 14:41:[id number] [facility] [address] [place] [address] [place] [address] 02/11/2012 11:02:38 02/12/2012 08:54:[id number] [facility] [address] [place] [address] [place] [address] 02/17/2012 14:07:35 02/17/2012 16:57:00 [id number] Chante sarmiento [facility] [address] [place] [address] 06/28/2012 09:10:45 06/28/2012 12:38:12 [id number] Chante EspinozaQu igley [facility] [address] [place] [address] 07/01/2012 15:44:43 07/01/2012 16:57:06 [id number] Chante EspinozaQu igley [facility] [address] [place] [address] 07/07/2012 09:26:48 07/07/2012 11:42:26 [id number] [facility] [address] [place] [address] [place] [address] 11/17/2012 11:49:20 11/17/2012 12:29:16 [id number] MD [facility] [address] [place] [address] [place] [address] 12/30/2012 09:48:08 12/30/2012 13:24:54 [id number] Chante Conley guillermina [facility] [address] [place] [address] 01/06/2013 11:05:16 01/06/2013 12:16:10 [id number] Syl Ruth Ann [facility] [address] [place] [address] 01/31/2013 09:46:57 01/31/2013 10:23:07 [id number] Merry Neil [facility] [address] [place] [address] [place] [id number] 02/01/2013 14:18:07 02/10/2013 14:21:[id number] [facility] [address] [place] [address] [place] [address] 02/03/2013 12:51:04 02/07/2013 09:00:[id number] [facility] [address] [place] [address] [place] [id number] 02/16/2013 14:34:03 02/23/2013 09:07:[id number] [facility] [address] [place] [address] [place] [address] 03/10/2013 13:24:50 03/10/2013 16:31:50 [id number] Lucien العراقي [facility] [address] [place] [address] 04/18/2013 09:19:53 04/18/2013 09:58:23 [id number] Lucien العراقي [facility] [address] [place] [address] 06/02/2013 13:53:34 06/02/2013 15:00:15 Excoriation of skin [id number] [address] 08/29/2013 13:56:17 08/29/2013 14:48:43 Sinusitis [id number] rec bactroban to skin ulcer bid and keep covered c band-aid [id number] [address] [address] 09/15/2013 09:20:02 09/15/2013 10:33:52 Knee pain [id number] Patient reports arthritis pain in her knees; reports she had used a friend's voltaren gel in the past with good results. Will Rx, but advised patient not to use until she has stopped using the dicolfenac PO. Shoulder joint pain [id number] S/P fall and subsequest ER visit for L shoulder pain; quite tender and very reduced ROM; ? rotator cuff injury. Will refer to ortho. Rx diclofenac , small quantity of Vicodin. Advised ice, heat, rest, gentle movement of shoulder to prevent adhesive capsulitis ; do not wear sling 24 hours/day for same reason. Neck pain [id number] ER CT showed C3-4 moderate sized left parasagitt al extruded disc and secondary moderate central spintal stenosis. Will order MRI for further eval per CT recommenda tion and plan probable spine center referral once MRI result back. [id number] [address] [address] 10/13/2013 09:04:48 10/13/2013 10:45:47 Multiple joint pain 44094760 Patient reports severe pain all over, my shoulders, neck, back, knees that NSAIDs are not helping; she reports I need Vicodin, it's the only thing that helps. Advised that short-acti ng opioids are not an appropriat e choice for arthritis or fibromyalg ia; advised Vicodin is an appropriat e choice for short-term pain with clear pathology. Will check some basic labs; will consider rheum consult once labs are back. Patient has not yet scheduled ortho consult placed at last OV; advised scheduling appt to discuss shoulder and knee pain. Will try meloxicam and amitriptyl ine QHS as patient reports difficulty sleeping due to pain. Advised keeping active, ice/heat PRN. Patient also with pressured speech, unable to sit still in exam room; she reports it's my bipolar, I always have an upswing this time of year. Advised close follow up with psych as adjustment in bipolar meds could yield secondary benefit with pain control. [id number] Shahana [address] [address] 01/03/2014 10:44:29 01/03/2014 12:13:57 Spinal stenosis in cervical region [id number] Shwetha Neil [address] [address] 01/20/2014 09:58:01 01/20/2014 11:02:57 Spinal stenosis in cervical region [id number] Vale Hardy [address] [address] 04/13/2014 08:54:48 04/13/2014 14:02:18 Adult health examination [id number] Full code status. Encouraged patient to discuss medical decisions with Health Care Proxy. Plan colonoscop y at age 50 unless change in symptoms or family history. Baseline mammogram age 35-40. Discussed abstinence , contracept ion and safe sex. Self Breast Examinatio n taught Encourage aerobic exercise 5x/week Discussed importance of healthy/ba lanced diet. Encouraged high fiber, adequate calcium, minimizing caffeine and alcohol. Screening mammography [id number] At [facility] risk of sexually transmitted infection [id number] Constipation [id number] Karson oswald reports mild constipati on since starting to take MVI for the last month; likely also due to pain medication . Will add Colace; advised clear fluids, fiber. Follow up PRN. Perineal pain 037435206 Perineal irration likely due to frequent sexually action. Rx hydrocorti sone; may continue to use tucks pads. Follow up PRN. [id number] [address] [address] 05/15/2014 11:25:31 05/15/2014 13:41:22 Spinal stenosis in cervical region [id number] [facility] [address] [place] [address] 06/21/2014 08:25:30 06/21/2014 10:12:37 Spinal stenosis in cervical region 38218138 Displaceme nt of cervical intervertebral disc 937477465 Degenerati on of cervical intervertebral disc 39800245 Lumbar sprain 167147088 [id number] Lewis Hale [facility] [address] [place] [address] 06/29/2014 09:27:34 06/29/2014 10:42:47 Cervical disc disorder with radiculopathy [id number] Alicia Moreno MA [facility] [address] [place] [address] [place] [address] 10/19/2014 14:19:29 10/19/2014 16:11:42 Degeneration of cervical intervertebral disc 68057400 Cervical spondylosis 702468357 Postoperative pain 408977777 s/p acdf C3-4 [id number] Douglas Mazariegos MD Orthopedi cs [address] [place] [address], [address] [address] 03/02/2019 09:43:28 03/02/2019 10:41:41 Synovitis of hip [id number] M65.859 48-year-ol d electively disabled woman with idiopathic atraumatic onset right hip pain. She has pain both with internal, but more so external rotation, arguing against a labral tear etiology. I'm concerned about the possibilit y of synovitis in the hip given the MRI, as well as her exam findings, and she reports a history of multiple sclerosis which flares intermitte ntly. She has had very little therapy to the hip, and we discussed a corticoste roid injection. She is amenable to this and the injection was administer ed today. Elected to follow up with us in a reasonable period of time and we discussed signs and symptoms of concern. [id number] Douglas Mazariegos MD Orthoped[facility] [address] [place] [address], [address] [place] [address] 04/06/2019 09:27:27 04/06/2019 11:11:58 Synovitis of hip 933061866 M65.859 48-year-ol d woman with increasing hip pain since the attempted corticoste roid injection. Again I'm concerned about the presence of possible intra-elias cular synovitis or other material. Pain began without traumatic antecedent . 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 She is situationa lly unable to work she refuses to define herself as disabled, which I think may help her in a postoperat howard recovery phase. given the unusual MRI findings, the progressio n of her symptoms, and her physical exam which is suggestive of intra-elias cular pathology, Dennys for surgical management . We'll refer referral to someone for hip arthroscop y versus without offer which would be an open approach to the hip. Acetabular ability to approach were reviewed, and she wishes to go forward with the open approach. I will have to perform a labral repair versus resection with debridemen t of synovitis, and likely biopsy of intra-elias cular material. Risks including failure to completely treat the pathology were reviewed. We'll try to find a date for her. [id number] Shewtha Tamayo PA-C Orthoped[facility] [address], [address] [place] [address] 04/21/2019 09:10:03 04/21/2019 10:46:28 Synovitis of hip [id number] M65.859 48 yo F here today for preoperati ve appointmen t prior to R hip open procedure scheduled with Dr Mazariegos 04/29/19. Discussed symptoms with Dr Mazariegos at last visit, with decreased WB ability and ROM with pain, recommend moving forward with open resection debridemen t. Risks/bene fits discussed and consent for procedure signed. She has her scrub packet. No significan t PMHx, remote hx of MRSA noted. She is ready to move forward with procedure. All questions answered, she continues to use crutches for support. 48-year-ol d woman with increasing hip pain since the attempted corticoste roid injection. Again I'm concerned about the presence of possible intra-elias cular synovitis or other material. Pain began without traumatic antecedent . 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 She is situationa lly unable to work she refuses to define herself as disabled, which I think may help her in a postoperat howard recovery phase. given the unusual MRI findings, the progressio n of her symptoms, and her physical exam which is suggestive of intra-elias cular pathology, Dennys for surgical management . We'll refer referral to someone for hip arthroscop y versus without offer which would be an open approach to the hip. Acetabular ability to approach were reviewed, and she wishes to go forward with the open approach. I will have to perform a labral repair versus resection with debridemen t of synovitis, and likely biopsy of intra-elias cular material. Risks including failure to completely treat the pathology were reviewed. [id number] Douglas Mazariegos MD Orthopedi cs [address] [place] [address] 05/11/2019 08:51:29 05/11/2019 09:45:14 Postoperative wound infection 10896280 T81.40XD patient is a 48-year-ol d woman who is now about 2 weeks out from her open hip labral debridemen t. She had been doing reasonably well, but noted some erythema along the proximal and distal extents of her wound. Today there is some fibrillar status stasis of both points, slightly worse around the inguinal crease proximally and distally. There is no active drainage nor erythema. Much like before surgery, she has a significan t constellat ion of pain which is difficult to relate to the exam. Reviewed intra-elias cular findings which were positive for labral chronic degenerati ve changes, but no overt synovitis as it had been my operative hypothesis no significan t arthritis or osseous abnormalit y such as cam lesion. She believes that the inguinal pain is feeling somewhat better, but is now very concerned about the superficia l discomfort . she has a reported history of Kate RSA infections , but today the appearance is more reminiscen t of suture abscess as opposed to infection. We'll start Keflex, refill Neurontin, and I like to see her back in about 5 days to check on the wound. It looks worse, or if she notes constituti onal symptoms increased diastasis drainage or erythema she should follow up sooner. [id number] Douglas Mazariegos MD Orthoped[facility] [address] [place] [address] 05/16/2019 09:38:49 05/16/2019 10:38:35 Postoperative wound infection 78609583 T81.40XD patient feels that the wound is worsening in appearance . Given her history of reported staph infections , and the typical progressio n of the diastasis and fibrinous material I believe that the best course of action is to open up the wound and make sure that we are not dealing in fact with an infection. Again there is no underlying hardware, the case was quite short with a clear objective with bleeding. She is slightly overweight , but does not have morbid obesity, inguinal tissue folding, or patulous abdominal skin which would predispose to wound complicati ons. She and her are amenable to this course of action we'll try to get this done tomorrow. Options risks and benefits as well as expectatio ns were discussed in detail. [id number] Luisito Rainey MD Orthopedi cs [address] [place] [address], [address] [place] [address] 07/29/2019 12:53:23 07/29/2019 14:13:59 Postoperative visit [id number] Z09 R hip I&D DOS 05/25/19 Postoperat howard wound infection 22109425 T81.40XD R hip I&D DOS 05/25/[address] Rainey for postop wound infection following R hip open labral resection and synovectom y DOS 04/29/[address] Mazariegos Synovitis of hip 6482920 02 M65.851 R hip open labral resection and synovectom y 04/29/[address] Mazariegos Pain in ri ght hip joint [id number] 03397 M25.551 Acetabular labrum tear 482410628 M24.151 R hip open labral resection and synovectom y 04/29/[address] Mazariegos [id number] Luisito Rainey MD Orthopedi cs [address], [address] [place] [address] 11/16/2019 09:39:38 11/16/2019 10:08:36 Postoperative wound infection 51476337 T81.40XD R hip I&D DOS 05/25/[address] Rainey for postop wound infection following R hip open labral resection and synovectom y DOS 04/29/[address] Mazariegos Acetabular labrum tear 729706640 M24.151 R hip open labral resection and synovectom y 04/29/[address] Mazariegos Synovitis of hip 2623818 02 M65.851 R hip open labral resection and synovectom y 04/29/[address] Mazariegos Osteoarthritis of hip 23 8412577 M16.11 [id number] [facility] [address] [place] [address] 02/06/2022 13:04:02 02/06/2022 13:37:14 Tick bite 77537419 W57.XXXA Patient is a 51 y.o. female who presented here today with a rash to her left lower abdomen. It is also associated with headache, joint pain, fatigue, body aches, for the past 3 days now. Patient is afebrile. Patient reported the she [place]. In some point, she was bitten by a tick 2 weeks ago and most recent 3 days ago. The rash is erythemato us, hot tot he touch, and tender. The rash is suggestive of an erythema migrans. Patient's symptoms is suggestive of lyme but cannot r/o covid. Will test her for lyme. Also ordered basic labs and covid. Will call for the result and if treatment modificati on is indicated. Will start her with Doxy for 21 days. Will stop if lyme test is negative. May take tylenol for body aches and headaches. For severe headache, please go to the nearest ER [facility]. Patient agreed with the plan of care. [id number] KARSON DEVI [facility] [address] [place] [address] 08/13/2023 10:19:58 08/13/2023 11:05:12 Postoperative visit [id number] Z48.89 Patient being seen for 1 week follow-up after surgery dated August 06, [address] Mazariegos with a concern for flexor tenosynovi tis however it was found that she had a purulent felon. Patient demonstrat es limited range of motion. Sutures are clean dry and intact. No evidence of infection. Erythema or warmth is subsided. Patient will continue with dry bandage. I would like to see the patient back in 1 week we will remove the sutures at that time I would also like her to begin active range of motion exercises. Patient to be seen in 1 week for follow-up. Patient agrees with plan. [id number] KARSON DEVI [facility] [address] [place] [address] 08/20/2023 13:01:32 08/20/2023 13:23:17 Postoperative visit 094049078 Z48.89 Patient being seen for 1 week follow-up after surgery dated August 06, [address] Mazariegos with a concern for flexor tenosynovi tis however it was found that she had a purulent felon. Patient demonstrat es limited range of motion. Sutures are clean dry and intact. No evidence of infection. Erythema or warmth is subsided. Sutures were removed and Band-Aid was applied. She will now work on active range of motion exercises. She can be seen on as-needed basis. There is no evidence of infection. Patient agrees with plan. [id number] Douglas Mazariegos MD [facility] [address] [place] [address] 10/12/2023 10:24:32 10/12/2023 11:14:57 Postoperative visit 510958279 Z48.89 See above Trigger th umb of right hand [id number] 63401 M65.311 Ayesha Ardon is a 53 y/o F who presents for a postoperat howard visit status post irrigation debridemen t of right fourth ray flexor tendon due to right fourth ray flexor tenosynovi tis on 08-06-2023 . Her sutures were removed at the last postoperat howard visit, which the pt tolerated well. Today, the pt reports mechanical triggering and pain at the surgical site. She has tried compressio n gloves and when she takes off gloves, pain returns. Physical exam findings of the right fourth ray reveals mild tenderness to palpation or pain at the surgical site, the surgical incision/s ite is clean, dry and intact without any signs of infection, . Weakly positive inducible carpal tunnel syndrome symptoms including Tinel's, equivocal Phalen's. The nature of the pt's surgical interventi on was discussed at length. Post-surgi paul healing was discussed at length. Physical exam findings of the right hand reveals right thumb trigger finger, right long finger triger finger, positive for right carpal tunnel exam. A right thumb trigger finger release, long finger CSI for trigger finger, revision right carpal tunnel was discussed at length. Treatment options were discussed at length. A right thumb and long finger trigger finger releases are recommende d at this time. The pt elects to proceed with surgical interventi on. The risks for palmar fascia contractio n or other soft tissue related issues with multiple hand incisions was reviewed, and we may alter this surgical plan somewhat near the time of surgery. The patient? s orthopedi c issue was discussed in context overall medical condition, the goals of the procedure and their unique constellat ion of issues. We discussed common risks such as bleeding, infection, joint stiffness, thromboemb olism (clot), pain, tissue injury and the potential for reoperatio n and/or other procedures if adverse events do occur. Additional risks from issues incident to, but not specifical ly related to, the surgery were reviewed within the limits of my expertise. In the most extreme cases, any these could involve the loss of limb or life. The objectives of surgery and its anticipate d benefits were outlined in detail, and in this patient? s case would seem to outweigh these risks. The importance of following the post-opera tive recommenda tions was also emphasized towards realizing the best possible result. All questions were addressed in satisfacto ry fashion and the decision was made to go forward with the procedure as outlined above. Bilateral carpal tunnel syndrome [id number] G56.03 History of bilateral carpal tunnel syndrome, both 10-12 years agoLe hand: Dr. Greer hayden hand: [facility] Trigger fi nger of right hand [id number] M65.30 Trigger finger for rigt thumb and long finger CSI [id number] KARSON SOUZA [facility] [address] [facility], [address] [place] [address] 11/20/2023 12:59:55 11/20/2023 13:36:12 Postoperative visit [id number] Z48.89 53-year-ol d female status post right CTR revision and right thumb trigger finger release performed by Dr. Mazariegos on 11-19-2023 presents today with increased right hand pain since falling on her hand yesterday. On exam, her incisions are clean dry and intact. Sutures are intact. She has some decrease sensation of the third and fourth digits however hand is warm and well-perfu sed. Compartmen ts are soft. Hand was redressed. I prescribed her gabapentin 100 mg 3 times daily. She has a follow-up with Dr. Mazariegos on 12-02-2023. [id number] [facility] SOU[facility] [address] [place] [address] 12/01/2023 09:20:06 12/01/2023 10:26:02 Postoperative visit [id number] Z48.89 53-year-ol d female status post right CTR revision, long finger and thumb trigger finger release performed by Dr. Mazariegos on 11-19-2023 presents today with increased right hand pain. Pain is mostly affecting her thumb. She denies systemic symptoms. She did fall on her hand about 1 week ago. Gabapentin and oxycodone has not been helping her much. She was evaluated in the ER yesterday. WBC was within normal range. She was prescribed Keflex and Bactrim. On exam, her hand appears to be dirty. Skin margins are dry and intact however there is mild swelling and erythema surroundin g the thumb incision. No active discharge. She removed the long finger suture herself. Other sutures are intact. She has some decreased sensation of the tips of her digits however hand is warm and well-perfu sed. Patient is very apprehensi ve and upset during her exam therefore my exam was somewhat limited. There is some concern for an infection of her thumb incision. We agreed to have her follow-up with Dr. Mazariegos tomorrow for further evaluation . She left the office abruptly. It appears a follow up appointmen t was not scheduled. [id number] Wallace Lowry [facility] E[facility] [address] [place] [id number] 7 08/09/2024 09:25:39 08/09/2024 11:47:25 Mixed conductive and sensorineural hearing loss, bilateral [id number] H90.6 In light of the hearing loss she has associated with her refractory fluid I will treat her with the possibilit y of her needing a myringotom y Acute sero us otitis media of left ear [id number] H65.02 2-week course of prednisone with follow-up in 3 weeks Nasal obstruction [id number] J34.89 Certainly topical things may be helpful such as saline which she has tried before Perforatio n of nasal septum [id number] J34.89 She has not been clean for 8 months and so I am uncomforta ble trying her with a septal button so we will facilitate that pending what we need to do. [id number] Wallace Lowry [facility] [address] [place] [phone] 08/30/2024 13:01:05 08/30/2024 14:29:25 Bilateral chronic serous otitis [id number] H65.23 She says she has not responded to prednisone the next step would be placement of tubes, we will facilitate that in the near future Perforatio n of nasal septum [id number] J34.89 At the same time as addressing her ear tube in place a septal button [id number] Wallace Lowry [address] [phone] 7 10/06/2024 13:01:05 10/06/2024 13:54:07 Bilateral chronic serous otitis [id number] H65.23 The informed consent was obtained and signed by the patient, witnessed by a staff member. They were given the opportunit y to ask any questions and address any concerns in regard to the procedure, both what to expect before, during and after. All questions were addressed. Their medication s, allergies and PMHx was reviewed in detail with the patient. Perforatio n of nasal septum [id number] J34.89 [id number] [facility] [address] [place] [address] [phone] 7 10/18/2024 09:39:41 10/18/2024 11:23:08 Bilateral chronic serous otitis [id number] H65.23 Continue water precaution s. Follow-up in 6 months Perforatio n of nasal septum [id number] J34.89 She is doing well with the blood and will maintain this for now we will we talked about things she can do as far as caring cleaning. Health Concerns Section Related Observation LastModified by Organization Detai ls LastModified Time None Recorded Concern Status LastModified by Organization Details LastModified Time None Recorded Advance Directives Directive None Recorded Payers Encounter Date Sequence Insurance Name Policy Number Policy Ureña Covered Member ID Ureña Member ID Guarantor Name 12/01/2023 1 [place] [facility] PLAN Ayesha Caalubb [id number] Ayesha Watkins Duglas 12/01/2023 1 [facility] [employer] - TOGETHER (MEDICAID HMO) [id number] Ayesha Watkins Duglas [id number] Ayesha Watkins Duglas 08/09/2024 1 [place] - [facility] (MEDICAID) Ayesha L Duglas [id number] Ayesha Watkins Duglas 08/30/2024 1 [place] - [facility] (MEDICAID) Ayesha Watkins Duglas [id number] Ayesha Watkins Duglas 10/06/2024 1 [place] - [facility] (MEDICAID) Ayesha Watkins Duglas [id number] Ayesha Watkins Duglas 10/18/2024 1 MEDICAID-[facility] (MEDICAID) Ayesha Watkins Duglas [id number] Ayesha Watkins Duglas Notes Date Note Type Note Provider Name and Address Organization Details Recorded Time 12/01/2023 text/html R cts, R trigger f/u, possible infection per JT KARSON SOUZA [address] [place] [address] [place], [phone], [facility] 12/02/2023 16:56:53 08/09/2024 text/html Patient comes in for evaluation. 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 She has noted recently her hearing is dropped off and is not responding to antibiotics of recent. Wallace Lowry [facility] [address] [facility] [place], [phone], [facility] 08/09/2024 11:43:09 08/30/2024 text/html She presents for follow-up of her nasal septal perforation as well as a residual ear fluid. Has not gotten better unfortunately with the prednisone. Thought there was slight improvement initially but it tends to recur quickly additionally she is complaining about nasal obstruction Wallace Lowry DO [address] [facility] [place], [phone], [facility] 08/30/2024 14:26:44 10/06/2024 text/html The patient presents to the office today for follow up for chronic serous otitis media bilateral and septal perforation. They are scheduled for myringotomy with tubes bilateral and insertion of septal button on October 12, 2024. They came in to sign their paper work and have been given the preoperative instruction sheet which they were able to review. Wallace Lowry DO [address] [place], [phone], [facility] 10/06/2024 13:51:09 10/18/2024 text/html Patient seen in follow-up for her nose and her ears. She has done well. Wallace Lorwy DO [address] [facility] [place], [phone], [facility] 10/18/2024 11:22:12 OBGyn Episode No OBEpisode recorded.
[2024-11-18 11:06] LABS: Reflex Trop? Y
--- NOTE | 2024-11-18 11:20 | P.HPHOSP_ITS ---
History of Present Illness Date of Service: 11/18/24 Attending physician on admission: Deniz Ferrara Chief Complaint: SOB and CP Pt is a 54-year-old female with a PMH significant for hypothyroidism, GERD, ADHD, and bipolar 1 disorder?who presents to the ED from [facility] complaining of substernal chest pain, SOB, MORRISSEY, and cough for the past 1-2 weeks. Pt is alert and oriented x3, but overall a vague and questionable historian. Has been feeling fatigued for 1-2 week with MORRISSEY such as walking in the hallway. Describes CP as a type of heaviness associated with breathing or cough, especially with exertion. Also complains of bilateral ankle swelling as well as nausea and diffuse lower abdominal pain. No vomiting. Some lightheadedness and dizziness, primarily with position changes. Overall pt states ?I feel like crap?. Pt initially found hypoxic by EMS upon arrival. She denies any hx of asthma, COPD, or smoking. In the ED pt was tachycardic up to 110, tachypneic up to 28, and hypoxic as low as 88% on RA. Labs were significant for leukocytosis of 13.7, and mild AST 34, and ALT of 42, otherwise grossly unremarkable. Stable H&H. No significant electrolyte abnormalities. Renal function WNL. Troponin negative. BNP negative. Tested negative for flu, RSV, and COVID. CXR showed right middle pneumonia. EKG demonstrated sinus tachycardia with QTC 482 without evidence of significant ST elevations or depressions. Pt was treated in the ED with ondansetron, ceftriaxone, and doxycycline. Pt is admitted to the hospital for treatment and further evaluation of acute hypoxic respiratory failure in the setting of community-acquired pneumonia with sepsis. Review of Systems 2 Review of Systems: Negative except for that which is stated in the HPI. [facility] Medical History (Updated 11/18/24 @ 12:53 by NIMESH Santacruz) GERD (gastroesophageal reflux disease) ADHD Hypothyroidism Bipolar 1 disorder Social History Advance Directives: No Advance Directives Information Provided: No Do you have a plan to hurt others: No Plan Meds Allergies Allergy/AdvReac Type Severity Reaction Status Date / Time topiramate [From Topamax] Allergy Unknown Verified 11/18/24 08:45 trazodone Allergy Swelling Verified 11/18/24 08:45 Active Medications: Current Medications Doxycycline Hyclate 100 mg/ (Sodium Chloride) 250 mls @ 166.67 mls/hr IV ONCE ONE Stop: 11/18/24 12:13 Physical Exam 2 Vital Signs and Narrative: Vital Signs: Last Vital Signs Temp 97.6 F 11/18/24 08:42 Pulse 86 11/18/24 08:42 Resp 16 11/18/24 08:42 BP 117/87 11/18/24 08:42 Pulse Ox 88 L 11/18/24 08:42 O2 Del Method Room Air 11/18/24 08:42 BMI result Body Mass Index 31.8 General: AOx3, no acute distress Resp: CTA bilaterally, though appear diminished with poor airflow CVS: S1, S2, regular rate, tachycardic GI: Mild epigastric tenderness, +BS, no distention Skin: Warm, dry Neuro: Cranial nerves II-XII grossly intact bilaterally. Motor grossly intact bilaterally Extremities: 1+ bilateral pitting edema Psych: Calm and cooperative Results Labs 11/18/24 09:03 11/18/24 09:03 Labs: Laboratory Results - last 24 hr 11/18/24 09:03 MCV 90.8 MCH 28.6 MCHC 31.5 RDW 13.1 Plt Count 360 MPV 9.7 Immature Gran % (Auto) 0.4 Neut % (Auto) 80.6 H Lymph % (Auto) 13.1 L Mellette % (Auto) 3.8 Eos % (Auto) 1.6 Baso % (Auto) 0.5 Lymph # (Auto) 1.8 Mellette # (Auto) 0.5 Eos # (Auto) 0.2 Baso # (Auto) 0.1 Abs Immat Gran (auto) 0.05 H Absolute Neuts (auto) 11.0 H Absolute Nucleated RBC 0.000 Nucleated RBC % (auto) 0.0 PT 10.9 INR 0.9 Anion Gap 10 L Estim Creat Clear Calc 77.4 Estimated GFR 58 Random Glucose 117 H Calcium 9.5 Magnesium 2.0 Total Bilirubin 0.2 AST 34 H ALT 42 H Alkaline Phosphatase 94 Troponin I Hi Sens Base < 2.7 B-Natriuretic Peptide < 10 Total Protein 7.3 Albumin 4.2 Lipase 15 Influenza Type A (PCR) NEGATIVE Influenza Type B (PCR) NEGATIVE RSV RNA Qual (PCR) NEGATIVE SARS-CoV-2 RNA (RT-PCR) NEGATIVE Imaging Radiologist's Impressions: Impressions Chest X-Ray 11/18/24 09:05 IMPRESSION: Acute airspace disease/pneumonia, right middle lung lobe. Recommend follow-up until resolution since underlying lesion/malignancy cannot be excluded. Electronically signed by: Terell Bishop MD 11/18/2024 09:53 AM EDT RP Assessment and Plan (1) Right middle lobe pneumonia: Status: Acute (2) Acute hypoxic respiratory failure: Status: Acute Plan Pt is a 54-year-old female with a PMH significant for hypothyroidism, GERD, ADHD, and bipolar 1 disorder?who presents to the ED from [facility] complaining of substernal chest pain, SOB, MORRISSEY, and cough for the past 1-2 weeks. Pt is admitted to the hospital for treatment and further evaluation of acute hypoxic respiratory failure in the setting of community-acquired pneumonia with sepsis. Acute hypoxic respiratory failure in the setting of community-acquired pneumonia with sepsis Pt with SOB, MORRISSEY, fatigue, cough times 1-2 weeks, desatting into the 80s on RA CXR showing right middle pneumonia Meets sepsis criteria with leukocytosis, tachycardia, and tachypnea; lactic acid WNL Will treat with ceftriaxone and doxycycline, started 11/18/2024 Titrate supplemental O2 >92, wean as tolerated Atypical chest pain Likely secondary to pneumonia Serial troponins negative, EKG without ischemic she has Treat as above Bilateral pitting edema Pt reports is new symptom Likely in the setting of above; pt obese, recently reduced activity due to MORRISSEY/SOB CHF unlikely: BNP negative Pt should elevate legs while in bed Encourage ambulation Hypothyroidism Continue levothyroxine GERD Continue PPI ADHD Continue Adderall Bipolar 1 disorder Continue home mood stabilizers Full Code Attending:?Dr. Ferrara DVT Prophylaxis: Lovenox Pt will require a hospitalization of at least two nights for treatment of?acute hypoxic respiratory failure in the setting of community-acquired pneumonia with sepsis that will require administration of supplemental oxygen, IV antibiotics, and close monitoring respiratory status. Quality Stroke Does the patient have a stroke diagnosis?: No VTE Prior VTE?: No VTE Risk Level:: Medical - moderate - high VTE Device Contraindication: Treatment Not Indicated VTE Drug Contraindication: N/A - Med Ordered
[2024-11-18] MEDS: cefTRIAXone sodium 1 GM VIAL IVPUSH (11:47)
[2024-11-18] MEDS: Doxycycline Hyclate 100 MG in 0.9 % Sodium Chloride 250 ML 166.67 MG IV (11:57)
[2024-11-18 12:01] LABS: zTroponin-I High Sen Reflex #2 < 2.7 ng/L (<3.5-17.0)
[2024-11-18 12:10] LABS: Appearance Urine Clear; Color Urine Yellow; Glucose Urine UA Negative (Negative); Leukocyte Esterase Urine Negative (Negative); Nitrite Urine Negative (Negative); PH 7.5 (5.0-9.0); Specific Gravity - Urine 1.015 (1.005-1.025); Urine Blood Negative (Negative); Urine Ketones Negative (Negative); Urine Protein Negative (Neg-Trace)
--- NOTE | 2024-11-18 12:24 | PC.NURSE ---
Patient urinated using bedside commode. Patient is alert & oriented at this time. Aware of plan to admit, awaiting bed assignment. Patient agreeable to plan of care. Urine specimen was collected and sent for analysis. Awaiting results. Care ongoing by this RN.
[2024-11-18] MEDS: Enoxaparin Sodium 40 MG/0.4 ML SYRINGE SUBCUT (13:40)
--- NOTE | 2024-11-18 14:23 | PHA.MEDREC ---
Pharmacy Consult ? Medication Reconciliation Pharmacy has completed the medication reconciliation. Krysten Kathleen unable to provide RX information, spoke to patient at bedside who was able to name most of her medications, strengths, and timing, but was unsure of a few. Stated she uses [facility] in [place] ([phone]) who went through maintenance medications.
[2024-11-18 19:18] LABS: Glucose, Whole Blood 105 mg/dL (60-115)
[2024-11-18] MEDS: Prazosin HCL 1 MG CAPSULE 2 MG PO (21:16)
[2024-11-18] MEDS: Gabapentin 300 MG CAPSULE PO (21:16)
[2024-11-18] MEDS: 0.9 % Sodium Chloride Flush 3 ML SYRINGE IVFLUSH (21:18)
[2024-11-18] MEDS: clonazePAM 1 MG TABLET PO (21:18)
[2024-11-18] MEDS: Amphetamine Mixed Salts 10 MG TABLET PO (21:18)
[2024-11-18] MEDS: Lithium Carbonate 300 MG CAPSULE PO (21:22)
[2024-11-18] MEDS: buPROPion HCl XL 150 MG TAB.ER.24H PO (21:23)
[2024-11-19] MEDS: Doxycycline Hyclate 100 MG in 0.9 % Sodium Chloride 250 ML 166.67 MG IV ×3 (00:15→23:43)
[2024-11-19 03:29] VITALS: BP 105/60; PULSE 100; RESP 18; TEMP 36.4; O2SAT 94
[2024-11-19] MEDS: Levothyroxine Sodium 100 MCG TABLET PO (05:44)
[2024-11-19] MEDS: Omeprazole 20 MG CAPSULE.DR PO ×2 (05:44→15:19)
[2024-11-19 06:46] LABS: Hemoglobin 10.5 g/dl (12.0-16.0); Mean Corpuscular HGB Conc 31.8 g/dl (31.0-35.0); Mean Corpuscular Hemoglobin 28.7 pg (27.0-33.0); Mean Corpuscular Volume 90.2 fL (80.0-98.0); Platelet Count 269 X10*3/uL (160-400); Red Blood Count 3.66 X10*6/uL (4.20-5.50); Red Cell Distribution Width 13.1 % (11.0-16.0); White Blood Count 18.2 X10*3/uL (4.8-10.8)
[2024-11-19 06:47] LABS: Anion Gap 10 (12-20); Blood Urea Nitrogen 10 mg/dL (9-16); Calcium 8.7 mg/dL (8.4-10.2); Carbon Dioxide 27 mmol/L (22-29); Chloride 104 mmol/L (96-108); Creatinine Clr Calc Pharmacy 92.9; Estimated Glomerular Filt Rate > 60; Glucose Random 124 mg/dL (60-115); Potassium 3.6 mmol/L (3.3-5.1); Sodium 137 mmol/L (135-145)
[2024-11-19 07:57] VITALS: BP 107/66; PULSE 98; RESP 18; TEMP 36.4; O2SAT 93
[2024-11-19] MEDS: clonazePAM 1 MG TABLET PO ×3 (09:34→21:44)
[2024-11-19] MEDS: Gabapentin 300 MG CAPSULE PO ×3 (09:34→21:44)
[2024-11-19] MEDS: Lithium Carbonate 300 MG CAPSULE PO ×2 (09:34→21:44)
[2024-11-19] MEDS: Amphetamine Mixed Salts 10 MG TABLET PO ×2 (09:35→15:19)
[2024-11-19] MEDS: 0.9 % Sodium Chloride Flush 3 ML SYRINGE IVFLUSH ×2 (09:35→15:23)
[2024-11-19] MEDS: buPROPion HCl XL 150 MG TAB.ER.24H PO (09:35)
--- NOTE | 2024-11-19 09:40 | P.PNIM_ITS ---
Subjective Subjective Date of Service: 11/19/24 Interval History: cough Physical Exam 2 Vital Signs: Vital Signs: Last Vital Signs Temp 97.6 F 11/19/24 07:57 Pulse 98 11/19/24 07:57 Resp 18 11/19/24 07:57 BP 107/66 11/19/24 07:57 Pulse Ox 93 11/19/24 07:57 O2 Del Method Room Air 11/19/24 07:57 O2 Flow Rate 1 11/18/24 15:57 BMI result Body Mass Index 35.4 General: AO X 3, no acute distress Resp: CTA bilateral, no accessory muscles used CVS: S1,S2,RRR GI: soft, non tender, non distended Neuro: motor grossly intact, alert Objective Data Active Medications Acetaminophen (Acetaminophen 325 Mg Tablet) 650 mg PO Q6H PRN PRN Reason: Pain, Mild 1-3,fever,headache Amphetamine/Dextroamphetamine (Amphetamine Mixed Salts 10 Mg Tablet) 10 mg PO TID [facility] Last Admin: 11/19/24 09:35 Dose: 10 mg Documented By: MARTIR Bupropion HCl (Bupropion Hcl Xl 150 Mg Tab.Er.24h) 150 mg PO DAILY [facility] Last Admin: 11/19/24 09:35 Dose: 150 mg Documented By: MARTIR Calcium Carbonate (Calcium Carbonate 750 Mg Tab.Chew) 750 mg PO Q4H PRN PRN Reason: Heartburn Ceftriaxone Sodium (Ceftriaxone Sodium 1 Gm Vial) 1 gm IVPUSH Q24H [facility] Clonazepam (Clonazepam 1 Mg Tablet) 1 mg PO TID [facility] Last Admin: 11/19/24 09:34 Dose: 1 mg Documented By: MARTIR Enoxaparin Sodium (Enoxaparin Sodium 40 Mg/0.4 Ml Syringe) 40 mg SUBCUT Q24H [facility] Last Admin: 11/18/24 13:40 Dose: 40 mg Documented By: BETHANIE Gabapentin (Gabapentin 300 Mg Capsule) 300 mg PO TID [facility] Last Admin: 11/19/24 09:34 Dose: 300 mg Documented By: MARTIR Doxycycline Hyclate 100 mg/ (Sodium Chloride) 250 mls @ 166.67 mls/hr IV Q12H [facility] Last Infusion: 11/19/24 01:45 Dose: Infused Documented By: DEON Levothyroxine Sodium (Levothyroxine Sodium 100 Mcg Tablet) 100 mcg PO DAILY@0600 [facility] Last Admin: 11/19/24 05:44 Dose: 100 mcg Documented By: DEON [place] Carbonate ([place] Carbonate 300 Mg Capsule) 300 mg PO BID [facility] Last Admin: 11/19/24 09:34 Dose: 300 mg Documented By: MARTIR Magnesium Hydroxide (Milk Of Magnesia 30 Ml Oral.Susp) 30 ml PO DAILY PRN PRN Reason: Constipation Melatonin (Melatonin 3 Mg Tablet) 6 mg PO BEDTIME PRN PRN Reason: Insomnia Omeprazole (Omeprazole 20 Mg Capsule.Dr) 20 mg PO BID@0630,1630 [facility] Last Admin: 11/19/24 05:44 Dose: 20 mg Documented By: DEON Ondansetron HCl (Ondansetron Hcl 4 Mg/2 Ml Vial) 4 mg IVPUSH Q8H PRN PRN Reason: Nausea and Vomiting Prazosin HCl (Prazosin Hcl 1 Mg Capsule) 2 mg PO BEDTIME [facility]; Protocol Last Admin: 11/18/24 21:16 Dose: 2 mg Documented By: DEON Sodium Chloride (0.9 % Sodium Chloride Flush 3 Ml Syringe) 3 ml IVFLUSH QSHIFT [facility] Last Admin: 11/19/24 09:35 Dose: 3 ml Documented By: MARTIR Labs 11/19/24 06:18 11/19/24 06:18 Labs: Laboratory Results - last 24 hr 11/18/24 11/18/24 11/18/24 09:03 11:18 11:33 MCV MCH MCHC RDW Plt Count MPV Absolute Nucleated RBC Nucleated RBC % (auto) Anion Gap Estim Creat Clear Calc Estimated GFR POC Glucose Random Glucose Lactic Acid 2.0 Calcium Troponin I Hi Sens Base < 2.7 Troponin I Hi Sens 2 Hr < 2.7 Hold Yellow Top Urine Color Urine Appearance Urine pH Ur Specific [place] Urine Protein Urine Glucose (UA) Urine Ketones Urine Blood Urine Nitrite Ur Leukocyte Esterase Influenza Type A (PCR) NEGATIVE Influenza Type B (PCR) NEGATIVE RSV RNA Qual (PCR) NEGATIVE SARS-CoV-2 RNA (RT-PCR) NEGATIVE 11/18/24 11/18/24 11/19/24 12:04 19:05 06:18 MCV 90.2 MCH 28.7 MCHC 31.8 RDW 13.1 Plt Count 269 D MPV 10.0 Absolute Nucleated RBC 0.000 Nucleated RBC % (auto) 0.0 Anion Gap 10 L Estim Creat Clear Calc 92.9 Estimated GFR > 60 POC Glucose 105 Random Glucose 124 H Lactic Acid Calcium 8.7 D Troponin I Hi Sens Base Troponin I Hi Sens 2 Hr Hold Yellow Top See Note Urine Color Yellow Urine Appearance Clear Urine pH 7.5 Ur Specific [place] 1.015 Urine Protein Negative Urine Glucose (UA) Negative Urine Ketones Negative Urine Blood Negative Urine Nitrite Negative Ur Leukocyte Esterase Negative Influenza Type A (PCR) Influenza Type B (PCR) RSV RNA Qual (PCR) SARS-CoV-2 RNA (RT-PCR) Assessment and Plan (1) Right middle lobe pneumonia: Status: Acute Plan 54F PMH obesity, hypothyroid, GERD, ADHD, bipolar presented with chest pain shortness breath Acute hypoxic respiratory failure secondary to sepsis due to pneumonia Continue ceftriaxone doxycycline, now on room air, sepsis resolved Follow up cultures Chest pain Atypical, likely due to pneumonia Pitting edema Likely venous stasis, resolved with elevation Hypothyroid Levothyroxine Bipolar Continue lithium DVT prophylaxis with Lovenox Full Code reason for continued hospitalization: Still coughing and short of breath Quality Stroke Does the patient have a stroke diagnosis?: No VTE Prior VTE?: No VTE Risk Level:: Medical - moderate - high VTE Device Contraindication: Treatment Not Indicated VTE Drug Contraindication: N/A - Med Ordered
--- NOTE | 2024-11-19 10:50 | MHC.CM.PN ---
PT FROM [facility] WHICH PT EXPLINS IS A [facility]SE WHERE SHE HAS BEEN FOR 10 MONTHS ..SHE WILL ARRANGE HER OWN TRANSPORT BACK WHEN DCD MERRY IS NNAGER [phone] ON THE W/E MESSAGE LEFT FOR SAME
[2024-11-19] MEDS: Enoxaparin Sodium 40 MG/0.4 ML SYRINGE SUBCUT (12:53)
[2024-11-19] MEDS: cefTRIAXone sodium 1 GM VIAL IVPUSH (12:53)
[2024-11-19] MEDS: Albuterol/Iprat 2.5/0.5MG 3 ML AMPUL.NEB INHALE (13:42)
[2024-11-19 15:49] VITALS: BP 117/73; PULSE 100; RESP 18; TEMP 36.4; O2SAT 93
--- NOTE | 2024-11-19 16:19 | PC.NURSE ---
Pt c/o SOB w talking and activity, sats 85% RA - Added 2 L sats up to 94%. MD aware RT PRN nebs ordered.
[2024-11-19 17:38] VITALS: O2SAT 95
[2024-11-19] MEDS: ondansetron HCL 4 MG/2 ML VIAL IVPUSH (17:46)
[2024-11-19 19:55] VITALS: BP 121/79; PULSE 95; RESP 18; TEMP 36.4; O2SAT 92
[2024-11-19] MEDS: Melatonin 3 MG TABLET 6 MG PO (22:05)
[2024-11-19] MEDS: Lactated Ringers 1,000 ML 80 ML IVCONT (23:40)
[2024-11-20] MEDS: ondansetron HCL 4 MG/2 ML VIAL IVPUSH (01:36)
[2024-11-20 03:25] VITALS: BP 126/68; PULSE 95; RESP 18; TEMP 36.4; O2SAT 93
[2024-11-20] MEDS: Omeprazole 20 MG CAPSULE.DR PO (05:38)
[2024-11-20] MEDS: Levothyroxine Sodium 100 MCG TABLET PO (05:38)
[2024-11-20 06:55] VITALS: BP 112/60; PULSE 88; RESP 16; TEMP 36.6; O2SAT 93
[2024-11-20 07:06] LABS: Glucose, Whole Blood 97 mg/dL (60-115)
[2024-11-20 07:50] LABS: Hematocrit 38.4 % (37.0-47.0); Mean Corpuscular HGB Conc 31.3 g/dl (31.0-35.0); Mean Corpuscular Hemoglobin 28.4 pg (27.0-33.0); Mean Platelet Volume 10.4 fL (9.4-12.3); Platelet Count 297 X10*3/uL (160-400); Red Blood Count 4.22 X10*6/uL (4.20-5.50); White Blood Count 13.6 X10*3/uL (4.8-10.8)
[2024-11-20 08:03] LABS: Anion Gap 12 (12-20); Blood Urea Nitrogen 9 mg/dL (9-16); Calcium 9.3 mg/dL (8.4-10.2); Carbon Dioxide 27 mmol/L (22-29); Chloride 105 mmol/L (96-108); Creatinine Clr Calc Pharmacy 106.2; Estimated Glomerular Filt Rate > 60; Glucose Random 90 mg/dL (60-115); Potassium 3.9 mmol/L (3.3-5.1); Sodium 140 mmol/L (135-145)
--- NOTE | 2024-11-20 08:31 | PM.DS ---
DS: Providers Provider Date of Service: 11/20/24 Date of admission: 11/18/24 11:52 Date of discharge: 11/20/24 Primary care physician: JUVENTINO Awad DS: Diagnosis Discharge Diagnosis (1) Right middle lobe pneumonia: Status: Acute DS: Summary Hospital Course Hospital Course: from initial hpi: 54-year-old female with a PMH significant for hypothyroidism, GERD, ADHD, and bipolar 1 disorder?who presents to the ED from [facility] complaining of substernal chest pain, SOB, MORRISSEY, and cough for the past 1-2 weeks. Pt is alert and oriented x3, but overall a vague and questionable historian. Has been feeling fatigued for 1-2 week with MORRISSEY such as walking in the hallway. Describes CP as a type of heaviness associated with breathing or cough, especially with exertion. Also complains of bilateral ankle swelling as well as nausea and diffuse lower abdominal pain. No vomiting. Some lightheadedness and dizziness, primarily with position changes. Overall pt states ?I feel like crap?. Pt initially found hypoxic by EMS upon arrival. She denies any hx of asthma, COPD, or smoking. In the ED pt was tachycardic up to 110, tachypneic up to 28, and hypoxic as low as 88% on RA. Labs were significant for leukocytosis of 13.7, and mild AST 34, and ALT of 42, otherwise grossly unremarkable. Stable H&H. No significant electrolyte abnormalities. Renal function WNL. Troponin negative. BNP negative. Tested negative for flu, RSV, and COVID. CXR showed right middle pneumonia. EKG demonstrated sinus tachycardia with QTC 482 without evidence of significant ST elevations or depressions. Pt was treated in the ED with ondansetron, ceftriaxone, and doxycycline. Pt is admitted to the hospital for treatment and further evaluation of acute hypoxic respiratory failure in the setting of community-acquired pneumonia with sepsis. hospital course: Patient was admitted for acute hypoxic respiratory failure secondary to sepsis due to pneumonia. Was treated with ceftriaxone and doxycycline and weaned down to room air, sepsis resolved and shortness of breaths significantly improved. Cultures were negative. Patient's chest pain was atypical and likely due to pneumonia she ruled out for acute coronary syndrome. Her pitting edema is likely venous stasis and it resolved with elevation. For hypothyroid was continued on levothyroxine. For bipolar disorder was continued on lithium. For obesity weight loss recommended. Patient is feeling better will be discharged on 5 more days of cefuroxime and doxycycline. She should have repeat chest imaging in about 4 weeks. Time Attestation Discharge Coordination Time (in mins): 32 Quality: Safe Use of Opioids Does Pt have an Active Cancer Diagnosis on the Problem List?: No Quality: Stroke Does the patient have a stroke diagnosis?: No Physical Exam Vital Signs: Vital Signs: Last Vital Signs Temp 97.9 F 11/20/24 06:55 Pulse 88 11/20/24 06:55 Resp 16 11/20/24 06:55 BP 112/60 11/20/24 06:55 Pulse Ox 93 11/20/24 06:55 O2 Del Method Room Air 11/20/24 06:55 O2 Flow Rate 1 11/18/24 15:57 BMI result Body Mass Index 35.4 General: AO X 3, no acute distress Resp: CTA bilateral, no accessory muscles used CVS: S1,S2,RRR GI: soft, non tender, non distended Neuro: motor grossly intact, alert Psych: appropriate affect, appropriate insight DS: Data Data Completed and Pending Labs on day of discharge: Laboratory Results - last 24 hr 11/20/24 11/20/24 06:50 07:15 WBC 13.6 H RBC 4.22 Hgb 12.0 Hct 38.4 MCV 91.0 MCH 28.4 MCHC 31.3 RDW 13.0 Plt Count 297 MPV 10.4 Absolute Nucleated RBC 0.000 Nucleated RBC % (auto) 0.0 Sodium 140 Potassium 3.9 Chloride 105 Carbon Dioxide 27 Anion Gap 12 BUN 9 Creatinine 0.77 Estim Creat Clear Calc 106.2 Estimated GFR > 60 POC Glucose 97 Random Glucose 90 Calcium 9.3 D Preliminary micro results at discharge 11/18/24 11:33 Blood Culture - Preliminary Blood - Venous No growth after 24 hours. 11/18/24 11:18 Blood Culture - Preliminary Blood - Venous No growth after 24 hours. Discharge Plan Discharge Anticipated Discharge Date/Time: 11/20/24 08:29 Patient Disposition: Xfer Other Discharge Diagnosis: pna Referrals: Leah Lewis FNP [Primary Care Provider] - 1 Week Discharge Medications: New cefuroxime axetil 500 mg tablet 500 mg PO BID Qty: 10 0RF doxycycline hyclate 100 mg tablet 100 mg PO BID Qty: 10 0RF Continued bupropion HCl 150 mg tablet sustained-release 12 hr 150 mg PO DAILY dextroamphetamine-amphetamine 10 mg tablet 1 tab PO TID clonazepam 1 mg tablet 1 mg PO TID levothyroxine 100 mcg Tablet 100 mcg PO DAILY@0600 lithium carbonate 300 mg Capsule 300 mg PO BID gabapentin 300 mg Capsule 300 mg PO TID prazosin 2 mg capsule 2 mg PO BEDTIME omeprazole 20 mg Tablet,Delayed Release (Dr/Ec) 20 mg PO BID@0630,1630 melatonin 5 mg Tablet 10 mg PO BEDTIME PRN (Reason: Sleep) Discharge Orders: Discharge Order (Routine); Ordered 11/20/24 Ordered By: Deniz Ferrara Diet: Advance to usual diet Activity on Discharge: As tolerated Stand Alone Forms: Patient Portal Discharge page Print Language: Vietnamese Care Plan Goals: recovery Health Concerns: pna Plan of Treatment: 5 more days cefitn and doxy, repeat imaging in about 4 weeks Assessment: see above
--- NOTE | 2024-11-20 08:45 | MHC.CM.PN ---
lynne cano back to [facility] will make own arrangements for transport
[2024-11-20] MEDS: Gabapentin 300 MG CAPSULE PO (08:58)
[2024-11-20] MEDS: Lithium Carbonate 300 MG CAPSULE PO (08:58)
[2024-11-20] MEDS: buPROPion HCl XL 150 MG TAB.ER.24H PO (08:58)
[2024-11-20] MEDS: clonazePAM 1 MG TABLET PO (08:58)
[2024-11-20] MEDS: Amphetamine Mixed Salts 10 MG TABLET PO (08:59)
[2024-11-20 10:09] VITALS: BP 119/81; PULSE 91; RESP 16; TEMP 36.6; O2SAT 98
== END 2024-11-20 10:16 | disposition other institution (70) | DRG 720 ==
LOC: HO.ED 11:15 → HO.EDOVER 12:07 → HO.S3 14:11
PROVIDERS: Registered Nurse Emergency; Admitting Provider Student in an Organized Health Care Education/Training Program; Emergency Provider Emergency Medicine; PCP Nurse Practitioner Family; Visit Provider Internal Medicine
DX: A41.9 Sepsis, unspecified organism (principal); J96.01 Acute respiratory failure with hypoxia; J18.9 Pneumonia, unspecified organism; E03.9 Hypothyroidism, unspecified; F31.9 Bipolar disorder, unspecified; K21.9 Gastro-esophageal reflux disease without esophagitis; F90.9 Attention-deficit hyperactivity disorder, unspecified type; Z20.822 Contact with and (suspected) exposure to COVID-19; Z79.890 Hormone replacement therapy; Z79.899 Other long term (current) drug therapy
CPT/HCPCS: 0241U; 36415; 71046; 80048; 80053; 81003; 82947; 83605; 83690; 83735; 83880; 84484; 85025; 85027; 85610; 87040; 93005; 99285; J0696; J1271; J1650; J2405; J7120

== ENCOUNTER → 2024-11-18 08:30 | Outpatient (BNV) | payer MEDICAID, SELFPAY | PROVIDERS: Emergency Provider Emergency Medicine; PCP Nurse Practitioner Family; Visit Provider Radiology Diagnostic Radiology | DX: R07.9 Chest pain, unspecified (principal) | CPT/HCPCS: 71046 ==

== ENCOUNTER → 2024-11-18 08:30 | Outpatient (BNV) | payer MEDICAID, SELFPAY | PROVIDERS: Admitting Provider Student in an Organized Health Care Education/Training Program; Emergency Provider Emergency Medicine; PCP Nurse Practitioner Family; Visit Provider Internal Medicine | DX: R00.0 Tachycardia, unspecified (principal) | CPT/HCPCS: 93010 ==

== ENCOUNTER → 2024-11-18 11:52 | Outpatient (BNV) | payer MEDICAID, SELFPAY | PROVIDERS: Admitting Provider Student in an Organized Health Care Education/Training Program; Emergency Provider Emergency Medicine; PCP Nurse Practitioner Family; Visit Provider Student in an Organized Health Care Education/Training Program | DX: J18.9 Pneumonia, unspecified organism (principal); J96.01 Acute respiratory failure with hypoxia | CPT/HCPCS: 99223 ==

== ENCOUNTER 2024-12-02 14:50 | Inpatient (IN) | payer MEDICAID, SELFPAY ==
--- NOTE | ~2024-12-02 | XR_ITS ---
EXAMINATION: XR CHEST CLINICAL INFORMATION: recent PNA, SOB COMPARISON: Chest 11/18/2024. TECHNIQUE: 2 views of the chest were obtained. FINDINGS: No significant abnormality is noted involving the heart, lungs, mediastinum, bony thorax or soft tissues. XR/XR chest 2V IMPRESSION: Unremarkable chest examination. Electronically signed by: Prasanth Reyes MD 12/02/2024 04:44 PM EDT RP
--- NOTE | ~2024-12-02 | CT_ITS ---
CLINICAL HISTORY: hypoxia CT angiography chest with contrast. 3D Postprocessing. Comparison: None Findings: The heart size is normal. RV/LV ratio is normal. The thoracic aorta is normal caliber. No pulmonary artery filling defects. The visualized thyroid and mediastinum are unremarkable. There are numerous nodular density of the right lung. The upper abdomen is unremarkable. No acute fractures. IMPRESSION: No pulmonary emboli. Numerous nodular densities of the right lung could be infectious/inflammatory. Clinical correlation is recommended. CT chest follow-up in 1 month is recommended to confirm resolution and exclude other possibilities. This document has been electronically signed by: Yolanda Lujan MD on 12/02/2024 19:35:35
[2024-12-02 15:00] VITALS: BP 140/70; PULSE 70; O2SAT 95
--- NOTE | 2024-12-02 15:04 | ECG_ITS ---
Test Reason : DYSPNEA Blood Pressure : */* mmHG Vent. Rate : 70 BPM Atrial Rate : 70 BPM P-R Int : 160 ms QRS Dur : 90 ms QT Int : 396 ms P-R-T Axes : 19 0 28 degrees QTcB Int : 427 ms Normal sinus rhythm Low voltage QRS Nonspecific T wave abnormality Abnormal ECG When compared with ECG of 18-Nov-2024 08:38, QT has shortened Referred By: Generic ED Physician Electronically Signed By: MIROSLAVA CLAY
[2024-12-02 15:06] VITALS: BP 130/83; PULSE 74; RESP 20; TEMP 36.7; O2SAT 97; BMI 34.6
--- NOTE | 2024-12-02 15:14 | ED_ITS ---
HPI - General Adult General Chief complaint: General Medical Stated complaint: COUGHING SOB Time Seen by Provider: 12/02/24 15:14 Source: patient and RN notes reviewed Mode of arrival: ambulatory Limitations: no limitations History of Present Illness ED Provider: Ayesha Montesinos PA-C HPI narrative: This is a 54-year-old female, with a past medical history of hypothyroidism, GERD, ADHD, and bipolar disorder, who presents to the emergency room from [facility] with concerns for weakness, shortness of breath, chest discomfort and dry cough. Patient was admitted on November 18, 2024 due to community-acquired pneumonia with sepsis. Patient states that after her discharge, she was feeling better up until approximately 1 week ago where she went back to an urgent care and had an x-ray performed which still revealed persistent right-sided pneumonia. She was treated with a 5 day course of Levaquin per patient. She states that she took the full course, discontinued several days ago. She states that again last night she started to feel unwell. She states that she has had subjective fevers, chills, dry cough, fatigue, shortness of breath, and intermittent chest pain. She states that this afternoon she was found by 1 of her program directors and was concerned as she was not looking well. They placed a pulse-oximeter on her finger and she was found to be at 86% on room air. She denies any current chest pain. She states that she has been using an inhaler that was prescribed to her by the urgent care, she denies any history of COPD or asthma, however she does report she smokes cocaine for many years, denies history of tobacco use. No history of IVDA. She is not use cocaine in the last 10 months. No other complaints or concerns at this time. complaint: SOB, cough Onset (ago): day(s) Radiation: non-radiation Severity: moderate Quality: aching Pain Consistency: constant Relieving factors: none Exacerbating factors: none Associated symptoms: chest pain, cough and fever/chills Treatments prior to arrival: none Related Data Home Medications ?Medication ?Instructions ?Recorded ?Confirmed bupropion HCl 150 mg tablet,12 hr 150 mg PO DAILY 11/18/24 11/18/24 sustained-release clonazepam 1 mg tablet 1 mg PO TID 11/18/24 11/18/24 dextroamphetamine-amphetamine 10 1 tab PO TID 11/18/24 11/18/24 mg tablet gabapentin 300 mg capsule 300 mg PO TID 11/18/24 11/18/24 levothyroxine 100 mcg tablet 100 mcg PO DAILY@0600 11/18/24 11/18/24 lithium carbonate 300 mg capsule 300 mg PO BID 11/18/24 11/18/24 melatonin 5 mg tablet 10 mg PO BEDTIME PRN Sleep 11/18/24 11/18/24 omeprazole 20 mg tablet,delayed 20 mg PO BID@0630,1630 11/18/24 11/18/24 release prazosin 2 mg capsule 2 mg PO BEDTIME 11/18/24 11/18/24 albuterol sulfate 90 mcg/actuation 2 puff inhalation Q3-4H 12/02/24 12/02/24 aerosol inhaler (Ventolin HFA) levofloxacin 750 mg tablet 750 mg PO DAILY 12/02/24 Allergies Allergy/AdvReac Type Severity Reaction Status Date / Time topiramate [From Topamax] Allergy Unknown Verified 12/02/24 15:07 trazodone Allergy Swelling Verified 12/02/24 15:07 Review of Systems 2 Review of Systems: Yes all other systems are reviewed and are negative Constitutional: Constitutional: Reports as per [facility] Past Medical History Medical History (Updated 12/02/24 @ 19:59 by NIMESH Arriaga) GERD (gastroesophageal reflux disease) ADHD Hypothyroidism Bipolar 1 disorder Social History Social History Household Members: Other Housing: Other Housing Other:: Care Home Patient Tobacco Use Status: Never used Tobacco Smoked in Last 30 Days: No Use of substances other than those prescribed or required for medical reasons: No Advance Directives: No Advance Directives Information Provided: No Do you have a plan to hurt others: No Plan Patient : No service: No Physical Exam ED Vital Signs: Vital Signs - 24 hr 12/02/24 15:06 12/02/24 15:58 12/02/24 17:24 Temperature 98.1 F Pulse Rate 74 72 Respiratory Rate 20 24 H Blood Pressure 130/83 Pulse Oximetry 97 86 L Oxygen Delivery Method Room Air Room Air 12/02/24 19:02 Temperature 97.9 F Pulse Rate 74 Respiratory Rate 18 Blood Pressure 108/75 Pulse Oximetry 96 Oxygen Delivery Method Room Air BMI result Body Mass Index 34.6 Const General: cooperative, comfortable and no acute distress Orientation/consciousness: patient oriented x3 Limitations: no limitations HENMT Head: Yes normal to inspection, Yes normocephalic and Yes atraumatic Ears: hearing grossly normal bilaterally General nose exam: Normal external nose present Face and sinus: Yes normal facial exam Mouth: Normal oral and palatal mucosa present, oropharynx normal and moist mucous membranes Throat: Yes posterior oropharynx normal Eyes General: appearance normal, both eyes and all related structures Eyelids: Yes eyelids normal Conjunctivae: conjunctivae normal Sclerae: sclerae normal Pupils: Equal, round and reactive pupils present EOM: EOMs intact bilaterally Neck Neck: Yes normal visual inspection, Yes full ROM and Yes no lymphadenopathy Lymphatic: no lymphadenopathy noted Chest Chest palpation & inspection: normal inspection of the chest Resp Other: Diminished throughout. Effort & Inspection: normal respiratory effort and able to speak in complete sentences Cardio Rate: regular rate Rhythm: regular rhythm Heart sounds: S1 normal heart sound present and S2 normal heart sound present GI Other: Abdomen is soft, nontender, nondistended Inspection: Yes normal to inspection Skin General skin exam: no rashes or lesions noted Trauma: no lacerations or abrasions Wounds: no wounds Neuro General: patient oriented x3 and moves all extremities Cranial nerves: Yes Equal, round and reactive pupils present Extrem General: Yes normal to inspection Right upper extremity: normal to inspection Left upper extremity: normal to inspection Right lower extremity: normal to inspection Left lower extremity: normal to inspection Course Reevaluation(s) Reevaluation #1: I Anna Jerez PA-C have accepted care of the patient and signed out pending imaging in admission. The patient has been treated for recurrent pneumonia over the past few months, the patient is back again with weakness shortness of breath and chest discomfort with the cough, she is found to be hypoxic, she dropped her oxygen saturation with ambulation. CTA of the chest is pending. CTA chest:IMPRESSION: No pulmonary emboli. Numerous nodular densities of the right lung could be infectious/inflammatory. Clinical correlation is recommended. CT chest follow-up in 1 month is recommended to confirm resolution and exclude other possibilities. Medications Administered Discontinued Medications Generic Name Dose Route Start Last Admin Trade Name Freq PRN Reason Stop Dose Admin Albuterol Sulfate 5 mg/ 0 mg 12/02/24 15:43 12/02/24 15:56 Albuterol/Ipratropium 3 ml INHALE 12/02/24 15:44 1 each ONCE ONE Administration Iohexol 100 ml 12/02/24 18:10 12/02/24 18:11 Iohexol 350 Mg/Ml 100 Ml Infus..Btl IV 12/02/24 18:11 65 ml ONCE ONE Administration Medical Decision Making Medical Decision Making [facility] Narrative: This is a 54-year-old female who presents emergency department for evaluation of shortness for breath, generalized weakness, dry cough since yesterday. Patient was recently admitted to the hospital due to right middle lobe pneumonia. She states that since yesterday she has had intermittent shortness of breath, chest pain, fatigue. On arrival, vital signs within normal limits. She is speaking full sentences under no acute distress. Lungs are diminished throughout. Differential diagnoses include viral URI, pneumonia, acute bronchitis. Plan: Labs, EKG, chest x-ray, ED bronch protocol 1740 - labs returned, she has no leukocytosis, stable H&H, chemistry with no significant electrolyte derangement. D-dimer negative. Chest x-ray reveals no pneumonia. Walking O2 saturation revealing that she becomes hypoxic at 86% even with changing position lightly. At rest, she has a normal oxygen saturation. Lung sounds improved after receiving ED bronch protocol, she has no wheezing, she does have slight crackles in her right lower lung base. Discussed case with my attending physician, Dr. Bethea, D-dimer is less than 150 however will obtain CTA given unclear etiology for hypoxia. Sign-out given to my colleague, NIMESH Arriaga, pending CTA and disposition, likely needing admission d/t hypoxia. Differential Diagnosis Differential Diagnoses: The differential diagnosis associated with the presentation includes See above Admission/Observation Consideration of admission/observation: Escalation of care including admission/observation considered Lab Data [facility] Lab Attestation statement: I reviewed the patient's lab results. Patient with no leukocytosis, stable H&H, chemistry with no significant electrolyte derangement. Troponin less than 2.7. 12/02/24 15:33 12/02/24 15:33 Labs: Lab Results 12/02/24 12/02/24 12/02/24 Range/Units 15:33 15:45 17:09 WBC 8.4 (4.8-10.8) X10*3/uL RBC 4.45 (4.20-5.50) X10*6/uL Hgb 12.5 (12.0-16.0) g/dl Hct 39.8 (37.0-47.0) % MCV 89.4 (80.0-98.0) fL MCH 28.1 (27.0-33.0) pg MCHC 31.4 (31.0-35.0) g/dl RDW 13.1 (11.0-16.0) % Plt Count 379 D (160-400) X10*3/uL MPV 9.7 (9.4-12.3) fL Immature Gran % (Auto) 0.2 (0.0-0.4) % Neut % (Auto) 53.9 (45-73) % Lymph % (Auto) 33.1 (20-40) % Swisher % (Auto) 6.1 (2-11) % Eos % (Auto) 5.5 H (0-4) % Baso % (Auto) 1.2 (0-2) % Lymph # (Auto) 2.8 (1.2-4.9) X10*3/uL Swisher # (Auto) 0.5 (0.1-1.2) X10*3/uL Eos # (Auto) 0.5 H (0.0-0.4) X10*3/uL Baso # (Auto) 0.1 (0.0-0.2) X10*3/uL Abs Immat Gran (auto) 0.02 (0.00-0.03) X10*3/uL Absolute Neuts (auto) 4.5 (2.0-8.3) x10*3/uL Absolute Nucleated RBC 0.000 (0.0-0.012) X10*3/uL Nucleated RBC % (auto) 0.0 (0.0-0.2) /100WBC D-Dimer High Sensitivty < 150 NG/ML Sodium 138 (135-145) mmol/L Potassium 3.6 (3.3-5.1) mmol/L Chloride 106 (96-108) mmol/L Carbon Dioxide 25 (22-29) mmol/L Anion Gap 11 L (12-20) BUN 9 (9-16) mg/dL Creatinine 0.88 (0.5-1.4) mg/dL Estim Creat Clear Calc 88.9 Estimated GFR > 60 Random Glucose 116 H (60-115) mg/dL Lactic Acid 2.0 (0.5-2.0) mmol/L Calcium 9.7 (8.4-10.2) mg/dL Total Bilirubin 0.3 (0.0-1.0) mg/dL AST 23 (5-31) U/L ALT 31 (0-31) U/L Alkaline Phosphatase 88 (39-117) U/L Troponin I High Sens < 2.7 (<3.5-17.0) ng/L B-Natriuretic Peptide < 10 (<100) pg/mL Total Protein 6.8 (6.5-8.0) g/dL Albumin 3.9 (3.5-5.0) g/dL Influenza Type A (PCR) NEGATIVE (Negative) Influenza Type B (PCR) NEGATIVE (Negative) RSV RNA Qual (PCR) NEGATIVE (Negative) SARS-CoV-2 RNA (RT-PCR) NEGATIVE (Negative) Independent Interpretation I performed an independent interpretation of an: EKG Interpretation: EKG normal sinus rhythm at a ventricular rate of 70 beats per minute, MD interval 160, QT QTC 396/427, no STEMI. Radiology Impression Discussion of test interpretation with radiology: I have reviewed the radiologist's reading. Radiologist Impression: CLINICAL INFORMATION: recent PNA, SOB COMPARISON: Chest 11/18/2024. TECHNIQUE: 2 views of the chest were obtained. FINDINGS: No significant abnormality is noted involving the heart, lungs, mediastinum, bony thorax or soft tissues. XR/XR chest 2V IMPRESSION: Unremarkable chest examination. Electronically signed by: Prasanth Reyes MD 12/02/2024 04:44 PM EDT Discharge Plan Discharge Clinical Impression: Hypoxia, Pneumonia Patient Disposition: Admitted As Inpatient Print Language: Azeri
[2024-12-02 15:41] LABS: MANUAL DIFF FLAG NO
[2024-12-02 15:51] LABS: Basophils Absolute Auto 0.1 X10*3/uL (0.0-0.2); Basophils Percent Auto 1.2 % (0-2); Eosinophils Absolute Auto 0.5 X10*3/uL (0.0-0.4); Eosinophils Percent Auto 5.5 % (0-4); Hematocrit 39.8 % (37.0-47.0); Hemoglobin 12.5 g/dl (12.0-16.0); Imm Gran Abs Auto 0.02 X10*3/uL (0.00-0.03); Imm Gran Pct Auto 0.2 % (0.0-0.4); Lymphocytes Absolute Auto 2.8 X10*3/uL (1.2-4.9); Lymphocytes Percent Auto 33.1 % (20-40); Mean Corpuscular HGB Conc 31.4 g/dl (31.0-35.0); Mean Corpuscular Hemoglobin 28.1 pg (27.0-33.0); Mean Corpuscular Volume 89.4 fL (80.0-98.0); Mean Platelet Volume 9.7 fL (9.4-12.3); Monocytes Absolute Auto 0.5 X10*3/uL (0.1-1.2); Monocytes Percent Auto 6.1 % (2-11); Neutrophils Absolute Auto 4.5 x10*3/uL (2.0-8.3); Neutrophils Percent Auto 53.9 % (45-73); Platelet Count 379 X10*3/uL (160-400); Red Blood Count 4.45 X10*6/uL (4.20-5.50); Red Cell Distribution Width 13.1 % (11.0-16.0); White Blood Count 8.4 X10*3/uL (4.8-10.8)
[2024-12-02] MEDS: Albuterol Sulfate 5 MG, Albuterol/Iprat 2.5/0.5MG 3 ML 3 ML INHALE (15:56)
[2024-12-02 15:58] VITALS: PULSE 72; RESP 24; O2SAT 99
--- OUTSIDE RECORDS SUMMARY | 2024-12-02 15:58 | XMS_ITS | Encounter Summary ---
Author Organization [employer] Address [address] [place] [address] Care Team Providers Care Tung Nut Grower Name Role Phone Leah Lewis Primary Care Provider [phone] Encounter Details Date Type Department Care Team (Late st Contact Info) Description 10/11/2024 Telephone [facility] [address] [phone] Leah Lewis FNP [address] [place] [address] Social History Tobacco Use Types Packs/Day Years [...] Care Team (Late st Contact Info) Description 12/26/2024 12:40 PM EDT Office Visit [address] [address] Leah Lewis FNP [address] [place] [address] 10/09/2025 1:00 PM EDT Office Visit [address] [address] Leah Lewis FNP [address] [place] [address] documented as of this encounter Visit Diagnoses Not on filedocumented in this encounter Care Teams Tung Nut Grower Relationship Specialty Start Date End Date Leah Lewis FNP [address] [place] [address] PCP - General Family Medicine 03/11/24 documented as of this encounter
--- OUTSIDE RECORDS SUMMARY | 2024-12-02 15:58 | XMS_ITS | Encounter Summary ---
Author Organization [employer] Address [address] [place] [address] Care Team Providers Care Veterinary Technology Instructor Name Role Phone Leah Lewis Primary Care Provider [phone] Encounter Details Date Type Department Care Team (Late st Contact Info) Description 11/28/2024 Refill [facility] [address] [place] [phone] Leah Lewis FNP [address] [place], [place] [phone] Severe obesity due to excess calories with serious comorbidity and body mass index (BMI) 120% of 95th percentile to less than 140% of 95th percentile for age in pediatric patient (CMS/[facility]) Social History Tobacco Use Types Packs/Day Years [...] Miscellaneous Notes * Telephone Encounter - JUVENTINO Deleon - 11/29/2024 11:50 AM EDT Approved with 0 refills (covering for JUVENTINO Awad). * Telephone Encounter - Faith Karolina - 11/28/2024 3:31 PM EDT PCP: JUVENTINO Awad Last in-person office visit: 11/01/2024 JUVENTINO Awad Lab Results Component Value Date BUN 14 10/07/2024 CREATININE 0.91 10/07/2024 HGBA1C 6.2 (H) 10/07/2024 K 4.5 10/07/2024 TSH 107.27 (H) 10/07/2024 Assessment: [] Protocol passed [] Lab due [] Appointment due Plan: [] Please refill for days [] Lab [] BMP [] TSH [] A1C [] Appointment due: Future Appointments Date Time Provider Department Center 12/26/2024 12:40 PM JUVENTINO Awad [facility] 10/09/2025 1:00 PM JUVENTINO Awad [facility] Comments: * Telephone Encounter - Samantha Bishop - 11/28/2024 2:47 PM EDT Needs a refill on her ozempic, only has 1 left for 12/04. Uses [facility] in [place] documented in this encounter Plan of Treatment Upcoming Encounters Date Type Department Care Team (Late st Contact Info) Description 12/26/2024 12:40 PM EDT Office Visit [address] [address] Leah Lewis FNP [address] [place] [address] 10/09/2025 1:00 PM EDT Office Visit [address] [address] Leah Lewis FNP [address] [place] [address] documented as of this encounter Visit Diagnoses Diagnosis Severe obesity due to excess calories with serious comorbidity and body mass index (BMI) 120% of 95th percentile to less than 140% of 95th percentile for age in pediatric patient (CMS/HCC) documented in this encounter Care Teams Veterinary Technology Instructor Relationship Specialty Start Date End Date Leah Lewis FNP [address] [place] [address] PCP - General Family Medicine 03/11/24 documented as of this encounter
--- OUTSIDE RECORDS SUMMARY | 2024-12-02 15:58 | XMS_ITS | Encounter Summary ---
Author Organization [employer] Address [address] [facility] 7t [place] [address] Care Team Providers Care Agricultural Research Director Name Role Phone Leah Lewis Primary Care Provider [phone] Encounter Details Date Type Department Care Team (Late st Contact Info) Description 08/01/2024 Telephone [facility] [address] [place] [address] Leah Lewis FNP [address] [place] [address] Social History Tobacco Use Types [...] 10:52 AM EST Processed and faxed Auth #[id number] Valid 08/08/24-08/08/25 Visits: 6 * Telephone Encounter - Samantha Bishop - 08/01/2024 2:00 PM EST Verified Insurance: Yes Referral Office: Dr Abebe in [place] Diagnosis Code: ear & deviated septum Number of Visits Needed:6 NPI# of Facility: NPI# of Provider being referred to: Phone #: Fax #: documented in this encounter Plan of Treatment Upcoming Encounters Date Type Department Care Team (Late st Contact Info) Description 12/26/2024 12:40 PM EDT Office Visit [address] [address] Leah Lewis FNP [address] [place] [address] 10/09/2025 1:00 PM EDT Office Visit [address] [address] Leah Lewis FNP [address] [place] [address] documented as of this encounter Visit Diagnoses Not on filedocumented in this encounter Care Teams Agricultural Research Director Relationship Specialty Start Date End Date Leah Lewis FNP [address] [place] [address] PCP - General Family Medicine 03/11/24 documented as of this encounter
--- OUTSIDE RECORDS SUMMARY | 2024-12-02 15:58 | XMS_ITS | Encounter Summary ---
Author Organization [employer] Address [address] [facility] 7t [place] [address] Care Team Providers Care Customer Support Agent Name Role Phone Leah Lewis Primary Care Provider [phone] Encounter Details Date Type Department Care Team (Late st Contact Info) Description 10/07/2024 Telephone [facility] [address] [place] [address] Leah Lewis FNP [address] [place] [address] Social History Tobacco Use Types [...] in. She said the fax number is [phone], her call back number is [phone] * Telephone Encounter - Lulu Tim - 10/07/2024 1:51 PM EDT Patient was seen by LM this morning , During this visit there gabapentin was increased to 600 mg . Patient needs a note about the increase sent to /2 [facility] . Please fax to [phone] documented in this encounter Plan of Treatment Upcoming Encounters Date Type Department Care Team (Late st Contact Info) Description 12/26/2024 12:40 PM EDT Office Visit [address] [address] Leah Lewis FNP [address] [place] [address] 10/09/2025 1:00 PM EDT Office Visit [address] [address] Leah Lewis FNP [address] [place] [address] documented as of this encounter Visit Diagnoses Not on filedocumented in this encounter Care Teams Customer Support Agent Relationship Specialty Start Date End Date Leah Lewis FNP [address] [place] [address] PCP - General Family Medicine 03/11/24 documented as of this encounter
--- OUTSIDE RECORDS SUMMARY | 2024-12-02 15:58 | XMS_ITS | Encounter Summary ---
Author Organization [employer] Address [address] [facility] 7t [place] [address] Care Team Providers Care Sweatband Separator Name Role Phone Leah Lewis Primary Care Provider [phone] Encounter Details Date Type Department Care Team (Late st Contact Info) Description 11/30/[address] [facility] [address] [place] [address] Leah Lewis FNP [address] [place] [address] Social History Tobacco Use Types [...] encounter Miscellaneous Notes * Telephone Encounter - Opal Mix - 11/30/2024 12:07 PM EDT Patient lm on vmail at 1044 am asking about a refill on her Ozempic and said its not at the pharmacy documented in this encounter Plan of Treatment Upcoming Encounters Date Type Department Care Team (Late st Contact Info) Description 12/26/2024 12:40 PM EDT Office Visit [address] [address] Leah Lewis FNP [address] [place] [address] 10/09/2025 1:00 PM EDT Office Visit [address] [address] Leah Lewis FNP [address] [place] [address] documented as of this encounter Visit Diagnoses Not on filedocumented in this encounter Care Teams Sweatband Separator Relationship Specialty Start Date End Date Leah Lewis FNP [address] [place] [address] PCP - General Family Medicine 03/11/24 documented as of this encounter
--- OUTSIDE RECORDS SUMMARY | 2024-12-02 15:58 | XMS_ITS | Encounter Summary ---
Author Organization [employer] Address [address] 7[address] [place] [address] Care Team Providers Care Otr Tanker Truck Driver Name Role Phone Leah Lewis Primary Care Provider [phone] Encounter Details Date Type Department Care Team (Late st Contact Info) Description 10/11/2024 Telephone [facility] [address] [phone] Leah Lewis FNP [address] [place] [address] Social History Tobacco Use Types Packs/Day Years [...] it again. Her call back number is [phone] * Telephone Encounter - Svetlana Mcleod - 10/13/2024 8:43 AM EDT Faxed note to program director/music director. * Telephone Encounter - Ness Joseph - 10/13/2024 8:34 AM EDT Please refax the medication change to [phone] KASEY Ayala program director/music director * Telephone Encounter - Ness Joseph - 10/12/2024 4:06 PM EDT Please fax the provider authorization, to her [facility] ,regarding the increased gabapentin at last Fridays appointment fax # is [phone] PLASE REFAX THEY DID NOT RECIEVE * Telephone Encounter - Svetlana Mcleod - 10/12/2024 8:36 AM EDT Faxed last office note stating new dose of Gabapentin, faxed to Krysten salmon F# [phone]. Calledpt and let her know. * Telephone Encounter - Samantha Bishop - 10/11/2024 4:39 PM EDT Please fax the provider authorization, to her fci ,regarding the increased gabapentin at last Fridays appointment fax # is [phone] * Telephone Encounter - Paul Reyes - 10/11/2024 10:57 AM EDT Patient asking for authorization to take gabapentin (Neurontin) 300 MG 4 times a day documented in this encounter Plan of Treatment Upcoming Encounters Date Type Department Care Team (Late st Contact Info) Description 12/26/2024 12:40 PM EDT Office Visit [address] [address] Leah Lewis FNP [address] [place] [address] 10/09/2025 1:00 PM EDT Office Visit [address] [address] Leah Lewis FNP [address] [place] [address] documented as of this encounter Visit Diagnoses Not on filedocumented in this encounter Care Teams Otr Tanker Truck Driver Relationship Specialty Start Date End Date Leah Leiws FNP [address] [place] [address] PCP - General Family Medicine 03/11/24 documented as of this encounter
--- OUTSIDE RECORDS SUMMARY | 2024-12-02 15:58 | XMS_ITS | Encounter Summary ---
Author Organization [employer] Address [address] [place] [address] Care Team Providers Care Grinding Wheel Inspector Name Role Phone Leah Lewis Primary Care Provider [phone] Encounter Details Date Type Department Care Team (Late st Contact Info) Description 10/05/2024 Telephone [facility] [address] [phone] Leah Lewis FNP [address] [place] [address] Social History Tobacco Use Types Packs/Day Years [...] Description 12/26/2024 12:40 PM EDT Office Visit [address] [address] Leah Lewis FNP [address] [place] [address] 10/09/2025 1:00 PM EDT Office Visit [address] [address] Leah Lewis FNP [address] [place] [address] documented as of this encounter Visit Diagnoses Not on filedocumented in this encounter Care Teams Grinding Wheel Inspector Relationship Specialty Start Date End Date Leah Lewis FNP [address] [place] [address] PCP - General Family Medicine 03/11/24 documented as of this encounter
--- OUTSIDE RECORDS SUMMARY | 2024-12-02 15:58 | XMS_ITS | Data Portability ---
Author Organization [facility] Address [address] [place] [address] Care Team Providers Care Rn Telehealth Name Role Phone RAMESH FAULKNER Primary Care Provider [phone] RAMESH FAULKNER Referring Provider ANKUSH ZEPEDA Primary Care Provider Assessment No assessment recorded. Plan of Treatment Reminders Order Date Submit Date Provider Last Modified By Organization Details Last Modified Time Details Appointments Follow up 2024 03:15P Monica Lowry, DO Not available Not available Not available Lab None recorded. Referral None recorded. Procedures None recorded. Surgeries tympanost isaias, tube insertion (SURG) [address] Patient Reg, [address] [place], [address], 10/12/2024 13:04:40 insertion , nasal septal prosthesi s (SURG) [address] Patient Reg, [address] [place], [address], 10/12/2024 13:04:33 Imaging None recorded. Medication Orders azelastin e 137 mcg (0.1 %) nasal spray 2024 025 [facility] , [address] [place] [address], [address], 08/30/2024 14:27:48 prednison e 20 mg tablet 2024 025 [facility] , [address] [place] [address] 1, [place], [address], 08/09/2024 11:43:19 Patient TargetsNo targets recorded. Patient InstructionsNo instructions recorded. Reason for Referral None Reported. Results Created Date Observation Date Name Description Value Unit Range Abnormal Flag Note LastModifiedBy Organization Detail LastModifiedTime 11/20/19 24 11/20/2023 XR, hand, 3 or more view Татьяна cancino MAB [address] [facility] [place] [address] XRay Report Signed Noreenen t: Rajni Ardon MR#: [id number] : 1969 Acct:H [id number] Age/Se x: 53 / F ADM Date: Loc: VIKASH R Attend ing Dr: Akshat davey PA-C Orderi ng Physic dwayne: Akshat davey PA-C Date of Servic e: Proced ure(s) : XR hand RT min 3V Access ion Number (s): [id number] H cc: Yuli Jerez MD EXAM: XR [...] right wrist fractu re. Dictat ed By: Jeremiah coombs MD Signed By: 1630 DD/DT: 1311 TD/TT: 1311 Transc riptio nist: [email or web address] [facility] [address] [facility], [place], [address], 11/23/2023 08:24:16 08/09/1906/03/2024 CT, head + brain , w/o contr ast No observ ation record ed. [email or web address] Not Available 08/09 11:42:29 Result Notes None recorded. Problems Name Problem SNOMED Code Status Onset Date Resolution Date Notes Provider Name and Address Organization Details Recorded Time Renal colic 6403675 Active Not Available [facility] 3 03:04:07 Right lower quadrant pain 822225683 Completed 07/02/2012 Not Available [facility] 3 03:04:07 Urinary tract infectious disease 69210249 Active Not Available [facility] 3 03:04:07 Increased frequency of urination 831900495 Active Not Available [facility] 3 03:04:07 Pyelonephr itis 97030111 Active Not Available [facility] 3 03:04:07 Fibromyosi tis 43341345 Active Not Available [facility] 3 03:04:07 Deviated nasal septum 394406866 Active Not Available [facility] 3 03:04:07 Shoulder joint pain 173908668 Active Chani Hooker PA-C [address] [place], [address] , [facility] 4 10:59:47 Joint pain in ankle and foot Active Not Available [facility] 3 03:04:07 Abdominal pain 37413204 Active Not Available [facility] 3 03:04:07 Abdominal pain 10084242 Completed 07/02/2012 Not Available [facility] 3 03:04:07 Knee pain Active Chani Hooker PA-C [address] [facility] [place], [address] , [facility] 4 10:59:47 Dysmenorrh ea 435626612 Active Not Available [facility] 3 03:04:07 Bipolar disorder 53272611 Active Not Available [facility] 3 03:04:07 Lipoma of skin and subcutaneo us tissue (excluding face) 968026303 Active Not Available [facility] 3 03:04:07 Cocaine dependence , episodic 343205600 Active Not Available [facility] 3 03:04:07 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 062893375 Active Not Available [facility] 3 03:04:07 Dysuria 33802087 Active Not Available [facility] 3 03:04:07 Dysuria 99671099 Completed 07/02/2012 Not Available [facility] 3 03:04:07 Cyst of ovary 20221535 Active Not Available [facility] 3 03:04:07 Dysplasia of cervix 29357539 Active Not Available [facility] 3 03:04:07 Excoriatio n of skin 416585773 [facility] 14:43:40 Sinusitis 81782665 Active Marco A mims [facility] 4 14:27:15 Neck pain 83418809 Active Serafin Honeycutt MD [address] [facility] [place], [address] , [facility] 5 11:16:40 Pain of multiple joints 99154094 Active Chani Hooker PA-C [address] [facility] [place], [address] , [facility] 4 11:09:39 Spinal stenosis in cervical region 07086514 Active Serafin Honeycutt MD [address] [place], [address] , [facility] 4 10:12:17 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 Lewis mims [facility] 4 02:34:24 Polymenorr hea 22553088 Active Lewis mims [facility] 4 02:34:24 Constipati on 19193675 Active Chani Hooker PA-C [address] [facility] [place], [address] , [facility] 4 14:37:22 Perineal pain 746166933 Active Chani Hooker PA-C [address] [place], [address] , [facility] 4 14:37:22 Displaceme nt of cervical interverte bral disc 897430311 Active Serafin Honeycutt MD [address] [place] [address], [address] , [facility] 4 10:12:17 Degenerati on of cervical interverte bral disc 23448452 Active Serafin Honeycutt MD [address] [place] [address], [address] , [facility] 5 15:47:34 Lumbar sprain 371146128 Active Serafin Honeycutt MD [address] [place] [address], [address] , [facility] 4 10:12:17 Cervical disc disorder with radiculopa thy 561052994 Active JARRET Ho, [facility] 5 09:25:20 Infection of tooth 040674940 Active Lewis mims, [facility] 5 18:16:49 Cervical spondylosi s 320192759 Active Serafin Honeycutt MD [address] [place] [address], [address] , [facility] 5 15:47:34 Postoperat howard pain 818109559 Mitra Honeycutt MD [address] [place] [address], [address] , [facility] 5 15:47:34 Problem Notes None recorded. Procedures Surgical History Date Name Laterality Status Provider Name and Address Organization Details Recorded Time 10/13/19 25 insertion of nasal septal prosthesis completed Kristina Worley [facility] 10/18/2024 09:41:40 10/13/19 25 myringotomy and insertion of tympanic ventilation tube completed Kristina Worley [facility] 10/18/2024 09:42:36 11/19/19 24 Carpal tunnel surgery completed eDl Brice [facility] 11/20/2023 09:09:03 08/06/19 24 Tendon excision palm/finger completed Moustapha Echeverria [facility] 08/10/2023 12:29:51 05/25/20 19 incision and drainage of abscess of skin completed Pardeep Huber [facility] 05/26/2019 08:22:30 05/17/20 19 incision and drainage completed Kely Moreno MA [facility] 06/07/2019 11:56:55 04/29/20 19 Total hip arthroplasty completed Moustapha Echeverria [facility] 05/07/2019 20:51:02 03/02/20 19 Corticosteroid Injection - HIP completed Douglas Mazariegos MD [address] [place] [address] [place], [address], [facility] 03/02/2019 22:56:13 04/13/20 14 PHQ-9 Patient Health Questionnaire completed Chani Hooker PA-C [address] [place] [address] [place], [address], [facility] 04/13/2014 14:35:22 08/02/19 14 Repair nasal septum defect completed Jenny Perry MD [address] [place] [address] [place], [address], [facility] 08/11/2013 17:43:44 03/23/20 13 hysterectomy, vaginal completed Mariely Torres RN [facility] 03/24/2013 09:27:01 02/24/20 13 CYSTOSCOPY (SURG) completed Ginna Milligan MA [facility] 02/25/2013 07:47:33 02/17/20 13 established patient counseling (15-24 minutes) completed Ajit Laureano MD [address] [place], [place] [address], [address], [facility] 02/22/2013 21:11:16 02/04/20 13 Colposcopy completed Ajit Laureano MD [address] [place] [address] [place], [address], [facility] 02/03/2013 17:00:11 06/28/20 12 PHQ-9 Patient Health Questionnaire completed Merry Trujillo [facility] 06/28/2012 09:33:47 02/17/20 12 established patient counseling (15-24 minutes) completed Ajit Laureano MD [address] [place] [address], [address], [facility] 02/17/2012 15:15:44 09/22/19 12 endometrial ablation completed Mariely Torres RN [facility] 12/30/2012 10:26:34 08/28/19 12 Hysteroscopy with Endometrial Biopsy or IUD Removal completed Ajit Laureano MD [address] [place] [address], [address], [facility] 08/28/2011 13:43:28 08/04/19 12 established patient counseling (15-24 minutes) completed Ajit Laureano MD [address] [place] [address], [address], [facility] 08/04/2011 15:53:28 gallbaldder removal completed Shahana Rubalcava [facility] 06/21/2014 09:03:09 T & A completed Mariely Torres RN [facility] 07/23/2011 14:57:26 orthopedic surgery completed Mariely Torres RN [facility] 07/23/2011 14:57:26 tubal ligation completed Mariely pace RN [facility] 07/23/2011 14:57:26 cholecystectomy, open completed Mariely Torres RN [facility] 07/23/2011 14:57:26 Imaging Results Imaging Date Name Status LastModified by Organiz ation Details LastModified Time 11/20/2023 XR, hand, 3 or more view completed [email or web address] [facility] [address] [place] [address] [place], [address], 11/23/2023 08:24:16 06/03/2024 CT, head + brain, w/o contrast completed [email or web address] Information not available 08/09/2024 11:42:29 Procedure Notes None recorded. Medical Equipment None Reported. Allergies Allergen ID Allergen Name Allergen Category Reaction Reaction Severity Criticality Documentation Date Start Date Code Code System Note Provider Name and Address Organization Details Recorded Time 06100 trazodone medicatio n Not available Not available Not available 07/23/2011 01099 RxNorm joint s swell Mariely Torres RN null, [facility] 1 14:53:58 47220 Topamax medicatio n Not available Not available Not available 07/23/2011 84010 3 RxNorm incre ases suici dino ideat ions Mariely Torres RN null, [facility] 14:53:58 Medications Name Sig Start Date Stop [...] e 137 mcg (0.1 %) nasal spray [place] 2 sprays 3 times a day by [...] Status Never Smoker ETOH: NONE Beverley Gonzalez [facility] 08/09/2024 10:12:58 What Is Your Level Of [...] Long? Yes Information not available 06/21/2014 An Framer Involved? If Yes, Who? No Information not [...] Diet No [email or web address] Information not available 02/01/2013 [employer] Information not available 09/15/2013 Are You A [...] Information not available 04/13/2014 Marital Status [facility] Informatio n not available 07/23/2011 How [...] [email or web address] Not available 09/25 14:28:36 Paternal Grandfather Accidental physical contact cerbro vascul ar accide nt mbacigalupo Not available 10/19/2014 14:28:36 Maternal Grandfather Myocardial infarction mbacigalupo Not available 14:28:36 Maternal Grandfather Heart disease [email or web address] Not available 09/25 14:28:36 Father Diabetes mellitus [email or web address] Not available 09/25 14:28:36 Medical History Condition Response cancer Y HIV or AIDS N arthritis Y bladder / kidney infection(s) N varicosities N asthma N glaucoma N depression Y high blood pressure N GERD / reflux N frequent headaches/migraines N psychiatric illness Y breast problem N diabetes N osteopenia/osteoprosis N anemia or bleeding problems N heart disease N metal implants N heart problems, murmurs N defects or inherited disease N infertility N anesthesia allergy/complications Y lung disease N skin condition Y endometriosis N other N CVA/stroke N hepatitis N anxiety disorder N thyroid disease or other endocrine probl ems N nausea/vomiting Y headaches or migraines Y Gynecological History Statement/Question [...] DTaP, unspecified formulation 02/17/2012 completed Beatriz mims [facility] 06/09/2012 14:23:42 Hep B, unspecified formulation 02/19/2012 madai mims [facility] 06/09/2012 14:23:42 Past Encounters Encounter ID Performer Location Encounter Start Date Encounter Closed Date Diagnosis/Indication Diagnosis SNOMED-CT Code Diagnosis ICD10 Code Diagnosis Note [id number] Ajit Laureano MD [facility] [place] [address] [place] [address] 07/23/2011 14:24:36 07/23/2011 16:12:34 [id number] Ajit Laureano MD [facility] [address] [address] 08/04/2011 15:03:07 08/04/2011 15:51:18 [id number] Ajit Laureano MD [facility] [address] [address] 08/28/2011 11:22:05 08/28/2011 13:27:09 [id number] Ajit Laureano MD [facility] [address] [address] 09/11/2011 10:53:09 09/11/2011 11:30:54 [id number] Ajit Laureano MD [facility] [address] [address] 10/06/2011 15:03:20 10/06/2011 16:24:17 [id number] Ajit Laureano MD [facility] [address] [address] 12/16/2011 13:55:15 12/16/2011 14:41:38 [id number] Ajit Laureano MD [facility] [address] [address] 02/11/2012 11:02:38 02/12/2012 08:54:45 [id number] Ajit Laureano MD [facility] [address] [address] 02/17/2012 14:07:35 02/17/2012 16:57:00 [id number] Chante sarmiento MD [facility] [address] [place] [address] 06/28/2012 09:10:45 06/28/2012 12:38:12 [id number] Chani Hooker PA-C [facility] [address] [facility] [place] [address] 07/01/2012 15:44:43 07/01/2012 16:57:06 [id number] HEDY [facility] [address] [place] [address] 07/07/2012 09:26:48 07/07/2012 11:42:26 [id number] Chani Hooker PA-C [facility] [address] [place] [address] [place] [address] 11/17/2012 11:49:20 11/17/2012 12:29:16 [id number] Ajit Laureano MD [facility] [address] [place] [address] 12/30/2012 09:48:08 12/30/2012 13:24:54 [id number] Chani Hooker PA-C [facility] [address] [place] [address] 01/06/2013 11:05:16 01/06/2013 12:16:10 [id number] Chante sarmiento MD [facility] [address] [place] [address] 01/31/2013 09:46:57 01/31/2013 10:23:07 [id number] Rasheed Lake MD [facility] [address] [place] [address] 02/01/2013 14:18:07 02/10/2013 14:21:51 [id number] Ajit Laureano MD [facility] [address] [place] [address] 02/03/2013 12:51:04 02/07/2013 09:00:31 [id number] Ajit Laureano MD [facility] [address] [place] [address] 02/16/2013 14:34:03 02/23/2013 09:07:28 [id number] Ajit Laureano MD [facility] [address] [place] [address] 03/10/2013 13:24:50 03/10/2013 16:31:50 [id number] Dameon Yuan MD [address] [address] 04/18/2013 09:19:53 04/18/2013 09:58:23 [id number] Marco A Ellis MD [address] [address] 06/02/2013 13:53:34 06/02/2013 15:00:15 Excoriation of skin 732845809 [id number] Marco A Ellis MD [address] [address] 08/29/2013 13:56:17 08/29/2013 14:48:43 Sinusitis 43049825 rec bactroban to skin ulcer bid and keep covered c band-aid [id number] Chani Hooker PA-C [address] [address] 09/15/2013 09:20:02 09/15/2013 10:33:52 Knee pain 07886322 Patient reports arthritis pain in her knees; reports she had used a friend's voltaren gel in the past with good results. Will Rx, but advised patient not to use until she has stopped using the dicolfenac PO. Shoulder joint pain 967218274 S/P fall and subsequest ER visit for L shoulder pain; quite tender and very reduced ROM; ? rotator cuff injury. Will refer to ortho. Rx diclofenac , small quantity of Vicodin. Advised ice, heat, rest, gentle movement of shoulder to prevent adhesive capsulitis ; do not wear sling 24 hours/day for same reason. Neck pain 48597660 ER CT showed C3-4 moderate sized left parasagitt al extruded disc and secondary moderate central spintal stenosis. Will order MRI for further eval per CT recommenda tion and plan probable spine center referral once MRI result back. [id number] Chani Hooker PA-C [address] [address] 10/13/2013 09:04:48 10/13/2013 10:45:47 Pain of multiple joints 50413194 Patient reports severe pain all over, my [...] could yield secondary benefit with pain control. [id number] Lewis Hale DO [address] [address] 01/03/2014 10:44:29 01/03/2014 12:13:57 Spinal stenosis in cervical region 20376733 [id number] Lewis Hale DO [address] [address] 01/20/2014 09:58:01 01/20/2014 11:02:57 Spinal stenosis in cervical region 61872745 [id number] Chani Hooker PA-C [address] [address] 04/13/2014 08:54:48 04/13/2014 14:02:18 Adult health examination 172778968 Full code status. Encouraged patient to discuss [...] calcium, minimizing caffeine and alcohol. Screening mammography 13540828 [facility] risk of sexually transmitted infection 137243268 Constipation 65626844 Karson oswald reports mild constipati on since starting to take MVI for the last month; likely also due to pain medication . Will add Colace; advised clear fluids, fiber. Follow up PRN. Perineal pain 064669509 Perineal irration likely due to frequent sexually action. Rx hydrocorti sone; may continue to use tucks pads. Follow up PRN. [id number] Lewis DO Geoffrey [address] [address] 05/15/2014 11:25:31 05/15/2014 13:41:22 Spinal stenosis in cervical region 43702463 [id number] Serafin Honeycutt MD [facility] [address] [place] [address] [place] [address] 06/21/2014 08:25:30 06/21/2014 10:12:37 Spinal stenosis in cervical region 16634629 Displaceme nt of cervical intervertebral disc 251156544 Degenerati on of cervical intervertebral disc 23250229 Lumbar sprain 575754218 [id number] Lewis KayDO faizan [address] [address] 06/29/2014 09:27:34 06/29/2014 10:42:47 Cervical disc disorder with radiculopathy 731212716 [id number] Serafin Honeycutt MD [facility] [address] [place] [address] [place] [address] 10/19/2014 14:19:29 10/19/2014 16:11:42 Degeneration of cervical intervertebral disc 57240371 Cervical spondylosis 841607073 Postoperative pain 812815071 s/p acdf C3-4 [id number] Douglas Mazariegos MD Orth[facility] [address] [place] [address], [address] [place] [address] 03/02/2019 09:43:28 03/02/2019 10:41:41 Synovitis of hip 478275168 M65.859 48-year-ol d electively disabled woman with [...] we discussed signs and symptoms of concern. [id number] Douglas Mazariegos MD [facility] [address] [facility], [address] [place] [address] 04/06/2019 09:27:27 04/06/2019 11:11:58 Synovitis of hip 609691062 M65.859 48-year-ol d woman with increasing hip [...] try to find a date for her. [id number] Douglas Mazariegos MD [facility] [address] [facility], [address] [place] [address] 04/21/2019 09:10:03 04/21/2019 10:46:28 Synovitis of hip 385246344 M65.859 48 yo F here today for [...] to completely treat the pathology were reviewed. [id number] Douglas Mazariegos MD Orthoped[facility] [address] [place] [address], [address] [place] [address] 05/11/2019 08:51:29 05/11/2019 09:45:14 Postoperative wound infection 16318706 T81.40XD patient is a 48-year-ol d woman [...] or erythema she should follow up sooner. [id number] Douglas Mazariegos MD [facility] [address], [address] [place] [address] 05/16/2019 09:38:49 05/16/2019 10:38:35 Postoperative wound infection 12897187 T81.40XD patient feels that the wound is [...] as expectatio ns were discussed in detail. [id number] Luisito Rainey MD Orthoped[facility] [address], [address] [place] [address] 07/29/2019 12:53:23 07/29/2019 14:13:59 Postoperative visit 402520272 Z09 R hip I&D DOS 05/25/19 Postoperat howard wound infection 33292578 T81.40XD R hip I&D DOS 05/25/[address] Rainey for postop wound infection following R hip open labral resection and synovectom y DOS 04/29/[address] Mazariegos Synovitis of hip 0468966 02 M65.851 R hip open labral resection and synovectom y 04/29/[address] Mazariegos [facility] hip joint 6751691323 39746 M25.551 Acetabular labrum tear 642039959 M24.151 R hip open labral resection and synovectom y 04/29/[address] Mazariegos [id number] Luisito Rainey MD Orthoped[facility] [address], [address] [place] [address] 11/16/2019 09:39:38 11/16/2019 10:08:36 Postoperative wound infection 65358467 T81.40XD R hip I&D DOS 05/25/[address] Rainey for postop wound infection following R hip open labral resection and synovectom y DOS 04/29/[address] Mazariegos Acetabular labrum tear 261118439 M24.151 R hip open labral resection and synovectom y 04/29/[address] Mazariegos Synovitis of hip 3560875 02 M65.851 R hip open labral resection and synovectom y 04/29/[address] Mazariegos Osteoarthritis of hip 23 7280711 M16.11 [id number] [facility] [address] [place] [address] 02/06/2022 13:04:02 02/06/2022 13:37:14 Tick bite 18619032 W57.XXXA Patient is a 51 y.o. female [...] Patient agreed with the plan of care. [id number] [facility] [address] [place] [address] 08/13/2023 10:19:58 08/13/2023 11:05:12 Postoperative visit 197618234 Z48.89 Patient being seen for 1 week [...] week for follow-up. Patient agrees with plan. [id number] KARSON DEVI [facility] [address] [place] [address] 08/20/2023 13:01:32 08/20/2023 13:23:17 Postoperative visit [id number] Z48.89 Patient being seen for 1 week [...] evidence of infection. Patient agrees with plan. [id number] Douglas Mazariegos MD [facility] [address] [place] [address] 10/12/2023 10:24:32 10/12/2023 11:14:57 Postoperative visit 034965639 Z48.89 See above Trigger th umb of right hand 1508809553 82606 M65.311 Ayesha Ardon is a 53 y/o [...] as outlined above. Bilateral carpal tunnel syndrome 2309463221 6894736 G56.03 History of bilateral carpal tunnel syndrome, both 10-12 years agoLeft hand: Dr. Greer hayden hand: [facility] Trigger fi nger of right hand 9789632161 8736536 M65.30 Trigger finger for rigt thumb and long finger CSI [id number] [facility] [address] [facility] [address] [place] [address] 11/20/2023 12:59:55 11/20/2023 13:36:12 Postoperative visit 762903394 Z48.89 53-year-ol d female status post right [...] a follow-up with Dr. Mazariegos on 12-02-2023. [id number] [facility] [address] [place] [address] 12/01/2023 09:20:06 12/01/2023 10:26:02 Postoperative visit 247035253 Z48.89 53-year-ol d female status post right [...] follow up appointmen t was not scheduled. [id number] Wallace Lowry[address] [address] 08/09/2024 09:25:39 08/09/2024 11:47:25 Mixed conductive and sensorineural hearing loss, bilateral 008754494 H90.6 In light of the hearing loss she has associated with her refractory fluid I will treat her with the possibilit y of her needing a myringotom y Acute sero us otitis media of left ear 2002807787 868397 H65.02 2-week course of prednisone with follow-up in 3 weeks Nasal obstruction 820594 000 J34.89 Certainly topical things may be helpful such as saline which she has tried before Perforatio n of nasal septum 02886141 J34.89 She has not been clean for 8 months and so I am uncomforta ble trying her with a septal button so we will facilitate that pending what we need to do. [id number] Wallace Lowry [facility] [address] [place] [address] [phone] 08/30/2024 13:01:05 08/30/2024 14:29:25 Bilateral chronic serous otitis [id number] H65.23 She says she has not responded to prednisone the next step would be placement of tubes, we will facilitate that in the near future Perforatio n of nasal septum [id number] J34.89 At the same time as addressing her ear tube in place a septal button [id number] Wallace Lowry [facility] [address] [place] [address] [id number] 10/06/2024 13:01:05 10/06/2024 13:54:07 Bilateral chronic serous otitis [id number] H65.23 The informed consent was obtained and [...] the patient. Perforatio n of nasal septum [id number] J34.89 [id number] Wallace Lowry [facility] [address] [place] [address] [phone] 10/18/2024 09:39:41 10/18/2024 11:23:08 Bilateral chronic serous otitis [id number] H65.23 Continue water precaution s. Follow-up in 6 months Perforatio n of nasal septum [id number] J34.89 She is doing well with the blood and will maintain this for now we will we talked about things she can do as far as caring cleaning. Health Concerns Section Related Observation LastModified by Organization Detai ls LastModified Time None Recorded Concern Status LastModified by Organization Details LastModified Time None Recorded Advance Directives Directive None Recorded Payers Insurance Date Sequence Insurance Name Policy Number Policy Ureña Covered Member ID Ureña Member ID Guarantor Name 10/06/2024 1 [facility] [employer] - TOGETHER (MEDICAID HMO) [id number] Ayesha L Duglas [id number] Ayesha L Duglas 10/06/2024 1 [place] Ayesha L Duglas [id number] Ayesha L Duglas 10/06/2024 1 [place] Ayesha L Duglas [id number] Ayesha L Duglas 10/06/2024 2 [place] Ayesha L Duglas [id number] Ayesha L Duglas 10/06/2024 3 [place] Ayesha L Duglas [id number] Ayesha L Duglas 10/18/2024 1 [place] [facility] (MEDICAID) Ayesha L Duglas [id number] Ayesha L Duglas Notes Date Note Type Note Provider Name and Address Organization Details Recorded Time 12/01/2023 text/html R cts, R trigger f/u, possible infection per JT KARSON SOUZA [address] [place] [address] [place], [id number], [facility] 12/02/2023 16:56:53 08/09/2024 text/html Patient comes in for evaluation. 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 She has noted recently her hearing is dropped off and is not responding to antibiotics of recent. Wallace Lowry, [address] [place], [address], [facility] 08/09/2024 11:43:09 08/30/2024 text/html She presents for follow-up of her nasal septal perforation as well as a residual ear fluid. Has not gotten better unfortunately with the prednisone. Thought there was slight improvement initially but it tends to recur quickly additionally she is complaining about nasal obstruction Wallace Lowry DO [address] [place], [address], [facility] 08/30/2024 14:26:44 10/06/2024 text/html The [...] able to review. Wallace Lowry DO [address] [facility] [place] [facility] [place], [address], [facility] 10/06/2024 13:51:09 10/18/2024 text/html Patient seen in follow-up for her nose and her ears. She has done well. Wallace Lowry DO [address] [facility] [place] [facility] [place], [address], [facility] 10/18/2024 11:22:12 OBGyn Episode No OBEpisode recorded.
--- OUTSIDE RECORDS SUMMARY | 2024-12-02 15:58 | XMS_ITS | Encounter Summary ---
Author Organization [employer] Address [address] [place] [address] Care Team Providers Care Chief Catalyst Operator Name Role Phone Leah Lewis Primary Care Provider [phone] Encounter Details Date Type Department Care Team (Late st Contact Info) Description 09/28/2024 Telephone [facility] [address] [phone] Leah Lewis FNP [address] [place] [address] Social History Tobacco Use Types Packs/Day Years [...] Description 12/26/2024 12:40 PM EDT Office Visit [address] [address] Leah Lewis FNP [address] [place] [address] 10/09/2025 1:00 PM EDT Office Visit [address] [address] Leah Lewis FNP [address] [place] [address] documented as of this encounter Visit Diagnoses Not on filedocumented in this encounter Care Teams Chief Catalyst Operator Relationship Specialty Start Date End Date Leah Lewis FNP NPI: [id number] [place] [address] PCP - General Family Medicine 03/11/24 documented as of this encounter
--- OUTSIDE RECORDS SUMMARY | 2024-12-02 15:59 | XMS_ITS | Encounter Summary ---
Author Organization [employer] Address [address] [facility] 7t [place] [address] Care Team Providers Care Quiller Machine Fixer Name Role Phone Leah Lewis Primary Care Provider [phone] Encounter Details Date Type Department Care Team (Late st Contact Info) Description 05/23/2024 Telephone [facility] [address] [place] [address] Leah Lewis FNP [address] [place] [address] Social History Tobacco Use Types [...] pharmacy for her back pain. Please advise. [phone] documented in this encounter Plan of Treatment Upcoming Encounters Date Type Department Care Team (Late st Contact Info) Description 12/26/2024 12:40 PM EDT Office Visit [address] [address] Leah Lewis FNP [address] [place] [address] 10/09/2025 1:00 PM EDT Office Visit [address] [address] Leah Lewis FNP [address] [place] [address] documented as of this encounter Visit Diagnoses Not on filedocumented in this encounter Care Teams Quiller Machine Fixer Relationship Specialty Start Date End Date Leah Lewis FNP [address] [place] [address] PCP - General Family Medicine 03/11/24 documented as of this encounter
--- OUTSIDE RECORDS SUMMARY | 2024-12-02 15:59 | XMS_ITS | Encounter Summary ---
Author Organization [employer] Address [address] [place] [address] Care Team Providers Care Consultants Intern Name Role Phone Leah Lewis Primary Care Provider [phone] Encounter Details Date Type Department Care Team (Late st Contact Info) Description 11/15/[address] [address] Leah Lewis FNP [address] [place] [address] Social History Tobacco Use Types Packs/Day Years [...] a PT-1 for a medical appointment. Patient's [facility] ID: [id number] Complete Pickup Address (home): [address] [facility] [address] Alternate pickup address (optional): Patient (Home) Emergency Contact Name and Number (optional): Drop off address (list all locations, including name of facility and care being received): [address] [place] [address] How many visits per month needed: 4 [...] Upcoming Encounters Date Type Department Care Team ([facility] st Contact Info) Description 12/26/2024 12:40 PM EDT Office Visit [address] [place] [address] Leah Lewis FNP [address] [place] [address] 10/09/2025 1:00 PM EDT Office Visit [address] [address] Leah Lewis FNP [address] [place] [address] documented as of this encounter Visit Diagnoses Not on filedocumented in this encounter Care Teams Consultants Intern Relationship Specialty Start Date End Date Leah Lewis FNP [address] [place] [address] PCP - General Family Medicine 03/11/24 documented as of this encounter
--- OUTSIDE RECORDS SUMMARY | 2024-12-02 15:59 | XMS_ITS | Encounter Summary ---
Author Organization [facility] [employer] Address [address] [facility] 7t [place] [address] Care Team Providers Care Trial Consultant Name Role Phone Leah Lewis Primary Care Provider [phone] Encounter Details Date Type Department Care Team (Late st Contact Info) Description 05/31/2024 Telephone [facility] [address] [place] [address] Leah Lewis FNP [address] [place] [address] Social History Tobacco Use Types [...] at night is working fine. Please advise. [phone] documented in this encounter Plan of Treatment Upcoming Encounters Date Type Department Care Team (Late st Contact Info) Description 12/26/2024 12:40 PM EDT Office Visit [address] [address] Leah Lewis FNP [address] [place] [address] 10/09/2025 1:00 PM EDT Office Visit [address] [address] Leah Lewis FNP [address] [place] [address] documented as of this encounter Visit Diagnoses Not on filedocumented in this encounter Care Teams Trial Consultant Relationship Specialty Start Date End Date Leah Lewis FNP [address] [place] [address] PCP - General Family Medicine 03/11/24 documented as of this encounter
--- OUTSIDE RECORDS SUMMARY | 2024-12-02 15:59 | XMS_ITS | Encounter Summary ---
Author Organization [employer] Address [address] [facility] 7t [place] [address] Care Team Providers Care Shot Coat Tender Name Role Phone Leah Lewis Primary Care Provider [phone] Encounter Details Date Type Department Care Team (Late st Contact Info) Description 11/28/2024 Telephone [facility] [address] [place] [address] Leah Lewis FNP [address] [place] [address] Social History Tobacco Use Types [...] encounter Miscellaneous Notes * Telephone Encounter - Trinity Mcmahno LPN - 11/28/2024 2:48 PM EDT DUPLICATE * Telephone Encounter - Samantha Bishop - 11/28/2024 2:46 PM EDT Was at the er 2 weekends ago for pneumonia, then went to urgent on 11/26. Needs a follow up with lm.Please call [phone] documented in this encounter Plan of Treatment Upcoming Encounters Date Type Department Care Team (Late st Contact Info) Description 12/26/2024 12:40 PM EDT Office Visit [address] [address] Leah Lewis FNP [address] [place] [address] 10/09/2025 1:00 PM EDT Office Visit [address] [address] Leah Lewis FNP [address] [place] [address] documented as of this encounter Visit Diagnoses Not on filedocumented in this encounter Care Teams Shot Coat Tender Relationship Specialty Start Date End Date Leah Lewis FNP [address] [place] [address] PCP - General Family Medicine 03/11/24 documented as of this encounter
--- OUTSIDE RECORDS SUMMARY | 2024-12-02 15:59 | XMS_ITS | Encounter Summary ---
Author Organization [employer] Address [address] [place] [address] Care Team Providers Care Counter Tacker Name Role Phone Leah Lewis Primary Care Provider [phone] Encounter Details Date Type Department Care Team (Late st Contact Info) Description 11/08/2024 Orders Only [facility] [address] [place] [phone] Leah Lewis FNP [address] [place], [place] [phone] Severe obesity due to excess calories with [...] Description 12/26/2024 12:40 PM EDT Office Visit [address] [address] Leah Lewis FNP [address] [place] [address] 10/09/2025 1:00 PM EDT Office Visit [address] [address] Leah Lewis FNP [address] [place] [address] documented as of this encounter Visit Diagnoses Diagnosis Severe obesity due to excess calories with serious comorbidity and body mass index (BMI) 120% of 95th percentile to less than 140% of 95th percentile for age in pediatric patient (CMS/HCC)- Primary documented in this encounter Care Teams Counter Tacker Relationship Specialty Start Date End Date Leah Lewis FNP [address] [place] [address] PCP - General Family Medicine 03/11/24 documented as of this encounter
--- OUTSIDE RECORDS SUMMARY | 2024-12-02 15:59 | XMS_ITS | Encounter Summary ---
Author Organization [employer] Address [address] [place] [address] Care Team Providers Care Edge Cutting Machine Operator Name Role Phone Leah Lewis Primary Care Provider Encounter Details Date Type Department Care Team (Late st Contact Info) Description 11/28/[address] [address] Leah Lewis FNP [address] [place] [address] Social History Tobacco Use Types Packs/Day Years [...] encounter Miscellaneous Notes * Telephone Encounter - Lauren Moy LPN - 11/30/2024 1:30 PM EDT Spoke to pt hospital follow up scheduled. Hospital follow up encounter don't to best of availability pt was seen at [facility] no er discharge in chart. * Telephone Encounter - Opal Mix - 11/30/2024 12:03 PM EDT Patient lm on vmail at 1044 am asking for a call back regarding a hospital follow up visit for Pneumonia * Telephone Encounter - Ness Joseph - 11/28/2024 11:38 AM EDT Patient would like to be seen as soon as possible she feels like her pneumonia is back [phone] documented in this encounter Plan of Treatment Upcoming Encounters Date Type Department Care Team (Late st Contact Info) Description 12/26/2024 12:40 PM EDT Office Visit [address] [address] Leah Lewis FNP [address] [place] [address] 10/09/2025 1:00 PM EDT Office Visit [address] [address] Leah Lewis FNP [address] [place] [address] documented as of this encounter Visit Diagnoses Not on filedocumented in this encounter Care Teams Edge Cutting Machine Operator Relationship Specialty Start Date End Date Leah Lewis FNP [address] [place] [address] PCP - General Family Medicine 03/11/24 documented as of this encounter
--- OUTSIDE RECORDS SUMMARY | 2024-12-02 15:59 | XMS_ITS | Clinical Summary ---
Author Organization [employer] Address [address] [facility] 7t [place] [address] Care Team Providers Care Patch Finisher Name Role Phone Leah Lewis Primary Care Provider [phone] Allergies Active Allergy Reactions Criticality Noted Date [...] (seven) days for 28 days. 2 mL 11/30/19 25 025 Active Tirzepatide-Weigh t Management (Zepbound) 2.5 MG/0.5ML solution auto-injectorIndi cations:Obesity Inject 0.5 mL (2.5 mg) under the skin every 7 (seven) days for 28 days. 2 mL 11/09/19 25 025 Discontinued(R eorder (will not trigger notification to Pharmacy)) Tirzepatide-Weigh t Management (Zepbound) 2.5 MG/0.5ML solution auto-injectorIndi cations:Obesity Inject 0.5 mL (2.5 mg) under the skin every 7 (seven) days for 28 days. 2 mL 11/23/19 25 025 Discontinued(R eorder (will not trigger [...] Encounters Date Type Department Care Team Description 11/30/2024 Patient Outreach [address] [address] Lauren Moy LPN 11/30/[address] [address] Leah Lewis FNP 11/28/[address] [address] Leah Lewis FNP Severe obesity due to excess calories with serious comorbidity and body mass index (BMI) 120% of 95th percentile to less than 140% of 95th percentile for age in pediatric patient ([facility]) 11/28/[address] [address] Leah Lewis FNP 11/28/[address] [address] Leah Lewis FNP 11/21/2024 9:30 AM EDT [facility] [address] [address] Ramila Whitten 11/21/[address] [address] Leah Lewis FNP Severe obesity due to excess calories with serious comorbidity and body mass index (BMI) 120% of 95th percentile to less than 140% of 95th percentile for age in pediatric patient ([facility]) 11/21/[address] [address] Leah Lewis FNP 11/16/2024 8:00 AM EDT Community Care Management [facility] [address] [facility] [address] [place] [address] NavyaelizabethRamila 11/15/[address] [address] Leah Lewis FNP 11/08/2024 Orders Only [address] [phone] Leah Lewis FNP Severe obesity due to excess calories with serious comorbidity and body mass index (BMI) 120% of 95th percentile to less than 140% of 95th percentile for age in pediatric patient ([facility]) (Primary Dx) 11/08/[address] [phone] Leah Lewis FNP 11/02/[address] [address] Leah Lewis FNP Class 1 obesity 11/01/2024 1:20 PM EDT Office Visit [address] [address] Leah Lewis FNP Class 1 obesity (Primary Dx); Bilateral low back pain without sciatica, unspecified chronicity; Other specified hypothyroidism; Hypothyroidism due to medication 10/24/[address] [address] Leah Lewis FNP 10/20/[address] [address] Leah Lewis FNP Colon Cancer Screening 10/11/2024 Telephone [facility] [address] [facility] [address] [place] [address] Leah Lewis FNP 10/11/2024 Telephone [facility] [address] [facility] [address] [place] [address] Leah Lewis FNP 10/07/2024 7:40 AM EDT Office Visit [address] [address] Leah Lewis FNP Routine general medical examination at a health care facility (Primary Dx); Low back pain at multiple sites; Encounter for screening mammogram for malignant neoplasm of breast; Gastroesophageal reflux disease with esophagitis without hemorrhage; Bipolar 1 disorder ([facility]) 10/07/2024 Orders Only [address] [address] Leah Lewis FNP Other specified hypothyroidism (Primary Dx) 10/07/[address] [address] Leah Lewis FNP 10/07/2024 Population Health Risk Score [facility] Department [address] [place] [phone] Provider, Population Health Generic 10/05/2024 8:00 AM EDT Community Care Management [facility] [address] [facility] [address] [place] [address] Ramila Whitten 10/05/2024 Telephone [facility] [address] [facility] [address] [place] [address] Leah Lewis FNP 10/04/2024 12:00 PM EDT Community Care Management [facility] [address] [facility] [address] [place] [address] Danielle Mendez 10/04/[address] [address] Leah Lewis FNP 10/03/2024 8:00 AM EDT Community Care Management [facility] [address] [facility] [address] [place] [address] Danielle Mendez 09/30/2024 Orders Only [facility] [address] [place] [address] Leah Lewis FNP Other specified hypothyroidism (Primary Dx) 09/28/2024 12:05 PM EST Community Care Management [facility] [address] [facility] [employer] [facility] [employer] [address] [place] [address] Danielle Mendez 09/28/2024 Telephone [facility] [address] [facility] [address] [place] [address] Leah Lewis FNP from Last 3 Months [...] is your housing situation today? I have connormerissa stewart 05/10/[address] you [...] 12/26/2024 12:40 PM EDT Office Visit [address] [address] Leah Lewis FNP [address] [place] [address] 10/09/2025 1:00 PM EDT Office Visit [address] [address] Leah Lewis FNP [address] [place] [address] Health Maintenance Due Date Last Done Comments [...] topic Meningococcal Vaccine Aged Out No yimi ela eligible based on patient's age to complete [...] EDT Routine general medical examination at a [facility] Bipolar 1 disorder ([facility]) LIPID PANEL, STANDARD Routine 10/07/2024 8:58 AM EDT Routine general medical examination at a [facility] Bipolar 1 disorder ([facility]) LITHIUM Routine 10/07/2024 8:58 AM EDT Routine general medical examination at a [facility] Bipolar 1 disorder ([facility]) CBC WITH AUTO DIFFERENTIAL Routine 10/07/2024 8:58 AM EDT Routine general medical examination at a [facility] Bipolar 1 disorder ([facility]) TSH W/REFLEX TO FT4 Routine 10/07/2024 8 :58 AM EDT Routine general medical examination at a [facility] Bipolar 1 disorder ([facility]) COMPREHENSIVE METABOLIC PANEL Routine 10/07/2024 8:58 AM EDT Routine general medical examination at a [facility] Bipolar 1 disorder ([facility]) from Last 3 Months Results * Referral to ENT (10/18/2024) Leah Lewis [facility] OUTPATIENT REFERRAL ORDERABLES E dited Result - Final * (ABNORMAL) TSH with Reflex to Free T4 (10/07/2024 8:58 AM EDT) TSH w/Reflex to FT4 107.27(H) mIU/L [facility] Comment: ?Reference Range ?> or = 20 Years ??0.40-4.50 ? Ranges ?First trimester ?0.26-2.66 ?Second trimester ?? 0.55-2.73 ?Third trimester ?0.43-2.91 Blood 10/07/2024 8:58 AM EDT 10/07/2024 8:58 AM EDT Narrative [facility] - 10/08/2024 6:37 AM EDT FASTING:NO FASTING: NO us Leah Lewis SALES AND MARKETING AGENT LAB BLOOD ORDERABLES Final Resul t Performing Organization Address City/State/[facility] Co de Phone Number [facility] [address], [place] [address] [facility] [place] [employer] [address] [place] [address] * (ABNORMAL) CBC auto differential (10/07/2024 8:58 AM EDT) Pathologist [facility] White Blood Cell Count 9.4 3.8 - 10.8 Thousand/ uL [facility] [place] [facility] [employer] Red Blood Cell Count 4.05 3.80 - 5.10 Million/u L [facility] [place] [employer] [facility] Hemoglobin 12.2 11.7 - 15.5 g/dL [facility] [place] [employer] [facility] Hematocrit 36.9 35.0 - 45.0 % [facility] [place] [employer] [facility] MCV 91.1 80.0 - 100.0 fL [facility] [place] [employer] [facility] MCH 30.1 27.0 - 33.0 pg [facility] [place] [employer] [facility] MCHC 33.1 32.0 - 36.0 g/dL [facility] [place] [employer] [facility] Comment: For adults, a slight decrease in the calculated MCHC value (in the range of 30 to 32 g/dL) is most likely not clinically significant; however, it should be interpreted with caution in correlation with other red cell parameters and the patient's clinical condition. RDW 12.6 11.0 - 15.0 % [facility] [place] [facility] Platelet Count 343 140 - 400 Thousand/ uL [facility] [place] [facility] MPV 9.7 7.5 - 12.5 fL [facility] Absolute Neutrophils 5,217 1,500 - 7,800 cells/uL [facility] Absolute Lymphocytes 2,961 850 - 3,900 cells/uL [facility] Absolute Monocytes 602 200 - 950 cells/uL [facility] Absolute Eosinophils 536(H) 15 - 500 cells/uL [facility] Absolute Basophils 85 0 - 200 cells/uL [facility] Neutrophils 55.5 % [facility] [place] [facility] Lymphocytes 31.5 % [facility] Monocytes 6.4 % [facility] [place] [facility] Eosinophils 5.7 % [facility] [place] [facility] Basophils 0.9 % [facility] [place] [facility] Blood Venous blood specimen / Unknown 10/07/2024 8:58 AM EDT 10/07/2024 8:58 AM EDT Narrative [facility] - 10/08/2024 6:37 AM EDT FASTING:NO FASTING: NO Leah Lewis [facility] LAB BLOOD ORDERABLES Final Resul t Performing Organization Address [facility] de Phone Number [address] [address] [facility] [place] [employer] [address] [place] [address] * T4, Free (10/07/2024 8:58 AM EDT) T4, Free 0.9 0.8 - 1.8 ng/dL [facility] [employer] [place] [facility] 10/07/2024 8:58 AM EDT 10/07/2024 8:58 AM EDT Narrative [facility] - 10/08/2024 6:37 AM EDT FASTING:NO FASTING: NO us Leah Lewis [facility] LAB BLOOD ORDERABLES Final Resul t Performing Organization Address [facility] Co de Phone Number [address] [address] [facility] [place] [facility] [facility] [address] [place] [address] * (ABNORMAL) Hemoglobin A1c (10/07/2024 8:58 AM EDT) Pathologist [facility] Hemoglobin A1c 6.2(H) <5.7 % of total Hgb [facility] [employer] Comment: For someone without known diabetes, a [...] AM EDT FASTING:NO FASTING: NO Leah Lewis [facility] LAB BLOOD ORDERABLES Final Resul t Performing Organization Address City/[facility]/ZIP Co de Phone Number [address] [address] [facility] [place] [facility] [address] [place] [phone] * [place] (10/07/2024 8:58 AM EDT) [facility] [place] 0.6 0.6 - 1.2 mmol/L [facility] [place] [employer] Blood Venous blood specimen / Unknown 10/07/2024 8:58 AM EDT 10/07/2024 8:58 AM EDT Narrative [facility] - 10/08/2024 6:37 AM EDT FASTING:NO FASTING: NO Leah Lewis [facility] LAB BLOOD ORDERABLES Final Resul t Performing Organization Address City/[facility]/ZIP Co de Phone Number [address] [phone] [facility] [place] [employer] [address] [place] [address] * (ABNORMAL) Lipid Panel, Standard (10/07/2024 8:58 AM EDT) Cholesterol, Total 176 <200 mg/dL [facility] [place] [employer] HDL Cholesterol 47(L) > OR = 50 mg/dL [facility] [place] [employer] Triglycerides 261(H) <150 mg/dL [facility] [place] [employer] Comment: If a non-fasting specimen was collected, consider repeat triglyceride testing on a fasting specimen if clinically indicated. Nikkie et al. J. of Clin. Lipidol. 2015;9:129-169. LDL Cholesterol 95 mg/dL [facility] [place] [employer] Comment: Reference range: <100 Desirable range <100 mg/dL for primary prevention; ?? <70 mg/dL for patients with CHD or diabetic patients with > or = 2 CHD risk factors. LDL-C is now calculated using the Jose Antonio-Tamir calculation, which is a validated novel method providing better accuracy than the Friedewald equation in the estimation of LDL-C. Jose Antonio SS et al. PEE. 2013;310(19): 5504-6003 (http://education.SolveBoard/faq/UXC659) Chol/HDLC Ratio 3.7 <5.0 (calc) [facility] [employer] [facility] Non-HDL Cholesterol 129 <130 mg/dL [facility] [place] [employer] Comment: For patients with diabetes plus 1 major ASCVD risk factor, treating to a non-HDL-C goal of <100 mg/dL (LDL-C of <70 mg/dL) is considered a therapeutic option. Blood Venous blood specimen / Unknown 10/07/2024 8:58 AM EDT 10/07/2024 8:58 AM EDT Narrative [facility] - 10/08/2024 6:37 AM EDT FASTING:NO FASTING: NO us Leah JAUREGUI LAB BLOOD ORDERABLES Final Resul t [facility] 200 [facility], [facility], [place] [address] [facility] [place] [employer] [address] [place] [phone] * (ABNORMAL) Comprehensive Metabolic Panel (10/07/2024 8:58 AM EDT) Pathologist [facility] Glucose 83 65 - 139 mg/dL [facility] [place] [employer] Comment: ? Non-fasting reference interval Urea Nitrogen (BUN) 14 7 - 25 mg/dL [facility] [place] [facility] Creatinine, Serum 0.91 0.50 - 1.03 mg/dL [facility] [place] [facility] eGFR 75 > OR = 60 mL/min/1. 73m2 [facility] [place] [employer] BUN/Creatinine Ratio SEE NOTE: 6 (calc) [facility] [place] [facility] Comment: ?? Not Reported: BUN and Creatinine are within ?? reference range. ? Sodium 140 135 - 146 mmol/L [facility] [place] [facility] Potassium 4.5 3.5 - 5.3 mmol/L [facility] Chloride 102 98 - 110 mmol/L [facility] [place] [facility] Carbon Dioxide 33(H) 20 - 32 mmol/L [facility] [place] [facility] Calcium 9.4 8.6 - 10.4 mg/dL [facility] [place] [facility] Protein, Total 7.1 6.1 - 8.1 g/dL [facility] [place] [facility] Albumin 4.4 3.6 - 5.1 g/dL [facility] [place] [facility] Globulin 2.7 1.9 - 3.7 g/dL (calc) [facility] [place] [facility] Albumin/Globuli n Ratio 1.6 1.0 - 2.5 (calc) [facility] [place] [facility] Bilirubin, Total 0.2 0.2 - 1.2 mg/dL [facility] [place] [facility] Alkaline Phosphatase 67 37 - 153 U/L [facility] [place] [facility] AST 20 10 - 35 U/L [facility] [place] [employer] [facility] ALT 27 6 - 29 U/L [facility] Blood Venous blood specimen / Unknown 10/07/2024 8:58 AM EDT 10/07/2024 8:58 AM EDT Narrative [facility] - 10/08/2024 6:37 AM EDT FASTING:NO FASTING: NO us Leah JAUREGUI LAB BLOOD ORDERABLES Final Resul t [facility] 200 [facility], [facility], [place] [address] [facility] [address] [place] [address] from Last 3 Months Insurance [employer] C3 Care Teams Patch Finisher Relationship Specialty Start Date End Date Leah Lewis FNP [address] [place] [address] PCP - General Family Medicine 03/11/24
--- OUTSIDE RECORDS SUMMARY | 2024-12-02 15:59 | XMS_ITS | Encounter Summary ---
Author Organization [employer] Address [address] [facility] [address] [address] 7t [place] [address] Care Team Providers Care Conservation Educator Name Role Phone Leah Lewis Primary Care Provider [phone] Encounter Details Date Type Department Care Team (Late st Contact Info) Description 11/21/[address] [address] Leah Lewis FNP [address] [place] [address] Social History Tobacco Use Types Packs/Day Years [...] Miscellaneous Notes * Telephone Encounter - Ness Riojas - 11/21/2024 1:40 PM EDT Pt was brought in by our diesel truck driver 20 minutes late. The diesel truck driver said that he wasn't notified about the time of this appointment. documented in this encounter Plan of Treatment Upcoming Encounters Date Type Department Care Team (Late st Contact Info) Description 12/26/2024 12:40 PM EDT Office Visit [address] [address] Leah Lewis FNP [address] [place] [address] 10/09/2025 1:00 PM EDT Office Visit [address] [address] Leah Lewis FNP [address] [place] [address] documented as of this encounter Visit Diagnoses Not on filedocumented in this encounter Care Teams Conservation Educator Relationship Specialty Start Date End Date Leah Lewis FNP [address] [place] [address] PCP - General Family Medicine 03/11/24 documented as of this encounter
--- OUTSIDE RECORDS SUMMARY | 2024-12-02 15:59 | XMS_ITS | Encounter Summary ---
Author Organization [employer] Address [address] [facility] 7t [place] [address] Care Team Providers Care Airline Ticket Agent Name Role Phone Leah Lewis Primary Care Provider [phone] Encounter Details Date Type Department Care Team (Late st Contact Info) Description 05/13/2024 Telephone [facility] [address] [place] [address] Leah Lewis FNP [address] [place] [address] Social History Tobacco Use Types [...] 2:51 PM EDT Faxed order and let [facility] know. * Telephone Encounter - Taylor Wellington [place] - 05/13/2024 2:49 PM EDT I will fax that over right now * Telephone Encounter - Samantha Bishop - 05/13/2024 2:42 PM EDT Was told to go get a back xray. Had several issues with her back. Please advise, please fax the order to [phone]. Patient is there now, order is referenced in the office notes from 05/10. documented in this encounter Plan of Treatment Upcoming Encounters Date Type Department Care Team (Late st Contact Info) Description 12/26/2024 12:40 PM EDT Office Visit [address] [address] Leah Lewis FNP [address] [place] [address] 10/09/2025 1:00 PM EDT Office Visit [address] [address] Leah Lewis FNP [address] [place] [address] documented as of this encounter Visit Diagnoses Not on filedocumented in this encounter Care Teams Airline Ticket Agent Relationship Specialty Start Date End Date Leah Lewis FNP [address] [place] [address] PCP - General Family Medicine 03/11/24 documented as of this encounter
--- OUTSIDE RECORDS SUMMARY | 2024-12-02 15:59 | XMS_ITS | Encounter Summary ---
Author Organization [employer] Address [address] [facility] [address] 7[address] [place] [address] Care Team Providers Care Wrapping Checker Name Role Phone Leah Lewis PROFESSOR OF LAW Primary Care Provider [phone] Encounter Details Date Type Department Care Team (Late st Contact Info) Description 11/30/2024 Patient Outreach [facility] [address] [place] [address] Lauren Moy LPN Social History Tobacco Use Types Packs/Day Years [...] as of this encounter Progress Notes * Lauren Moy LPN - 11/30/2024 1:27 PM EDT Patient was discharged from [facility] Emergency Room on unknown date. Contacted patient [x]Spoke with Patient/Family []Unable to Reach []Left Voicemail []MyChart Message Chief Complaint: pneumonia Follow up needed? :Yes Patient will follow up with [x]PCP []Specialist *insert specialty/doctor here* []Surgeon []Other: [] N/A Appointment Scheduled: 12/02/24 Comments: Pt stated was seen in ER twice for pneumonia pt stated antibiotics are done on 12/02/24 and pt reports not feeling any better. Pt would like to be seen for ER follow up. NO documents in chart for either of these ER visits. Unsure of exact days of ER visits and what was given for antibiotics. documented in this encounter Plan of Treatment Upcoming Encounters Date Type Department Care Team (Late st Contact Info) Description 12/26/2024 12:40 PM EDT Office Visit [address] [address] Leah Lewis FNP [address] [place] [address] 10/09/2025 1:00 PM EDT Office Visit [address] [address] Leah Lewis FNP [address] [place] [address] documented as of this encounter Visit Diagnoses Not on filedocumented in this encounter Care Teams Wrapping Checker Relationship Specialty Start Date End Date Leah Lewis FNP [address] [place] [address] PCP - General Family Medicine 03/11/24 documented as of this encounter
[2024-12-02 16:02] LABS: Alanine Aminotransferase 31 U/L (0-31); Albumin Level 3.9 g/dL (3.5-5.0); Anion Gap 11 (12-20); Aspartate Amino Transferase 23 U/L (5-31); Bilirubin Total 0.3 mg/dL (0.0-1.0); Blood Urea Nitrogen 9 mg/dL (9-16); Calcium 9.7 mg/dL (8.4-10.2); Carbon Dioxide 25 mmol/L (22-29); Chloride 106 mmol/L (96-108); Creatinine Clr Calc Pharmacy 88.9; Estimated Glomerular Filt Rate > 60; Glucose Random 116 mg/dL (60-115); Potassium 3.6 mmol/L (3.3-5.1); Sodium 138 mmol/L (135-145); Total Protein 6.8 g/dL (6.5-8.0)
[2024-12-02 16:04] LABS: B Type Natriuretic Peptide < 10 pg/mL (<100)
[2024-12-02 16:13] LABS: Troponin-I High Sensitivity < 2.7 ng/L (<3.5-17.0)
[2024-12-02 16:30] LABS: D Dimer High Sensitivity < 150 NG/ML
[2024-12-02 17:22] LABS: Alkaline Phosphatase 88 U/L (39-117)
[2024-12-02 17:24] VITALS: O2SAT 86
[2024-12-02 17:59] LABS: Influenza A PCR NEGATIVE (Negative); Influenza B PCR NEGATIVE (Negative); Resp Syncy Virus RNA Qual PCR NEGATIVE (Negative); SARS COV2 PCR INHOUSE NEGATIVE (Negative)
[2024-12-02] MEDS: iohexoL 350 MG/ML 100 ML INFUS..BTL IV (18:11)
[2024-12-02 19:02] VITALS: BP 108/75; PULSE 74; RESP 18; TEMP 36.6; O2SAT 96
--- NOTE | 2024-12-02 20:46 | PHA.MEDREC ---
Addendum entered by Sunny Dailey 12/02/24 21:08: reviewed Original Note: Pharmacy Consult ? Medication Reconciliation Pharmacy has completed the medication reconciliation. Spoke with patient and she was able to confirm her medications with me; she confirmed her dosages, specific timing she takes her medications at and stated she goes to a senior care ([facility] [place] [facility]) who should have a list as well. Patient also confirmed she started a Levofloxacin 750mg regimen 11/26 and finished yesterday morning. I tried finding and calling the [facility] but was only able to find a [facility] line that I left a voice mail on to call us back. Patient was also recently admitted with us 11/18-11/20, Dc packet matches but for Prazosin and Gabapentin; patient confirmed Prazosin was stopped about 3 years ago due to it dropping her blood pressure too much. Gabapentin is now taken QID insttead of TID per pateint. Will update if we can get a list from the senior care.
[2024-12-02 20:56] VITALS: BP 125/81; PULSE 72; RESP 20; O2SAT 100
[2024-12-02] MEDS: Piperacillin Sodium/Tazobactam 4.5 GM in 0.9 % Sodium Chloride 100 ML IV (21:28)
[2024-12-02] MEDS: Enoxaparin Sodium 40 MG/0.4 ML SYRINGE SUBCUT (21:28)
[2024-12-02] MEDS: vancomycin/NS 2,000 MG/500 ML PLAST..BAG 250 MG IV (21:28)
--- NOTE | 2024-12-02 22:15 | PC.NURSE ---
Had pt. try water and saltines, PA made aware and was informed that pt. tolerated well. Pt. to be upgraded to clear liquids since tolerated and speech to see pt. for eval to enhance diet.
[2024-12-02 22:17] LABS: Appearance Urine Clear; Color Urine Yellow; Glucose Urine UA Negative (Negative); Leukocyte Esterase Urine Negative (Negative); Nitrite Urine Negative (Negative); Specific Gravity - Urine >= 1.030 (1.005-1.025); Urine Blood Negative (Negative); Urine Ketones Negative (Negative); Urine Protein Negative (Neg-Trace)
--- NOTE | 2024-12-02 22:18 | P.HPHOSP_ITS ---
History of Present Illness Date of Service: 12/02/24 Attending physician on admission: Woodrow Goldberg Chief Complaint: Weakness, shortness of breath patient is a 54-year-old female with a past medical history significant for hypothyroid, GERD, ADHD, bipolar, type 2 diabetes on Ozempic, and history substance use disorder, sober x9 months, currently residing in a residential, who presented to the ED due to weakness, shortness of breath, chest discomfort, dry cough, nausea, chills and tactile fever. She was admitted for 25 for pneumonia with sepsis and improved upon discharge. The patient reports about 1 week later she was feeling sick again and went to urgent care and was diagnosed with persistent right-sided pneumonia and prescribed Levaquin. She continues to be symptomatic the 0000s reported to the ED today. She does report swallowing issues chronic since having a plate placed in the left side of her neck. She also reports chronic GERD and reports that she is waking in the middle of the night and vomiting liquids into a bucket. She feels that she is unable to take a deep breath, not secondary to pain just does not feel possible. She denies any additional concerns including urinary symptoms or abdominal pain. Review of Systems 2 Constitutional: Constitutional: Denies body ache(s), Reports chills, Reports fatigue and Reports fever(s) Eyes: Eyes: Denies change in vision and Denies photophobia ENT: Denies nasal congestion, Denies nasal discharge and Denies sore throat Cardiovascular: Cardiovascular: Reports chest pain, Denies rapid heart rate, Reports leg edema, Denies lightheadedness and Reports dyspnea Respiratory: Respiratory: Denies chest congestion, Reports cough, Reports dyspnea and Denies wheezing Gastrointestinal: Gastrointestinal: Denies abdominal pain, Denies diarrhea, Denies nausea and Denies vomiting Genitourinary: Genitourinary: Denies difficulty voiding, Denies dysuria and Denies urinary urgency Musculoskeletal: Musculoskeletal: Denies myalgias Integumentary/Breasts: Skin/Breast: Denies rash Neurologic: Denies confusion Psychiatric: Psychiatric: Denies confusion Endocrine: Endocrine: Reports fatigue Hematologic/Lymphatic: Hematologic/Lymphatic: Denies easy bleeding and Denies easy bruising Allergic/Immunologic: Allergic/Immunologic: Denies wheezing [facility] Medical History (Updated 12/02/24 @ 22:23 by Jenny Alves PA-C) Type 2 diabetes mellitus without complications GERD (gastroesophageal reflux disease) ADHD Hypothyroidism Bipolar 1 disorder Functional capacity: independent ambulation Social History Household Members: Other Housing: Other Housing Other:: Assisted Patient Tobacco Use Status: Never used Tobacco Smoked in Last 30 Days: No Use of substances other than those prescribed or required for medical reasons: No Advance Directives: No Advance Directives Information Provided: No Do you have a plan to hurt others: No Plan Patient : No service: No Narrative: No smoking, history of smoking cocaine (sober x9 months), no alcohol Meds Allergies Allergy/AdvReac Type Severity Reaction Status Date / Time topiramate [From Topamax] Allergy Unknown Verified 12/02/24 15:07 trazodone Allergy Swelling Verified 12/02/24 15:07 Active Medications: Current Medications Acetaminophen (Acetaminophen 325 Mg Tablet) 975 mg PO Q6H PRN PRN Reason: Pain, Mild 1-3,fever,headache Benzonatate (Benzonatate 100 Mg Capsule) 100 mg PO TID PRN PRN Reason: Cough Calcium Carbonate (Calcium Carbonate 750 Mg Tab.Chew) 750 mg PO Q4H PRN PRN Reason: Heartburn Enoxaparin Sodium (Enoxaparin Sodium 40 Mg/0.4 Ml Syringe) 40 mg SUBCUT Q24H MICHAEL Last Admin: 12/02/24 21:28 Dose: 40 mg Piperacillin Sod/Tazobactam (Sod 4.5 gm/ Sodium Chloride) 100 mls @ 200 mls/hr IV Q6H MICHAEL Last Infusion: 12/02/24 21:58 Dose: Infused Vancomycin HCl (Vancomycin/Ns) 2,000 mg in 500 mls @ 250 mls/hr IV ONCE ONE Stop: 12/02/24 22:59 Last Admin: 12/02/24 21:28 Dose: 250 mls/hr Vancomycin HCl 1,250 mg/ (Sodium Chloride) 250 mls @ 166.667 mls/hr IV Q12H [facility] Magnesium Hydroxide (Milk Of Magnesia 30 Ml Oral.Susp) 30 ml PO DAILY PRN PRN Reason: Constipation Melatonin (Melatonin 3 Mg Tablet) 6 mg PO BEDTIME PRN PRN Reason: Insomnia Ondansetron HCl (Ondansetron Hcl 4 Mg/2 Ml Vial) 4 mg IVPUSH Q8H PRN PRN Reason: Nausea and Vomiting Pharmacy Consult (Consult Rx Vancomycin Dosing) 1 each MISCELLANE DAILY PRN PRN Reason: Consult order Sodium Chloride (0.9 % Sodium Chloride Flush 3 Ml Syringe) 3 ml IVFLUSH QSHIFT [facility] Home Medications ?Medication ?Instructions ?Recorded ?Confirmed ?Last Taken ?Type bupropion HCl 150 mg tablet,12 hr 150 mg PO DAILY@0800 11/18/24 12/02/24 12/02/24 History sustained-release clonazepam 1 mg tablet 1 mg PO TID@0800,1400,2000 11/18/24 12/02/24 12/02/24 History dextroamphetamine-amphetamine 10 1 tab PO TID@0800,1200,1600 11/18/24 12/02/24 12/02/24 History mg tablet gabapentin 300 mg capsule 300 mg PO QID 11/18/24 12/02/24 12/02/24 History levothyroxine 100 mcg tablet 100 mcg PO DAILY@0600 11/18/24 12/02/24 12/02/24 History lithium carbonate 300 mg capsule 300 mg PO BID@0800,2000 11/18/24 12/02/24 12/02/24 History melatonin 5 mg tablet 10 mg PO BEDTIME PRN Sleep 11/18/24 12/02/24 12/02/24 History omeprazole 20 mg tablet,delayed 20 mg PO BID@0630,1630 11/18/24 12/02/24 12/02/24 History release albuterol sulfate 90 mcg/actuation 2 puff inhalation Q3-4H 12/02/24 12/02/24 12/02/24 History aerosol inhaler (Ventolin HFA) Physical Exam 2 Vital Signs and Narrative: Vital Signs: Last Vital Signs Temp 97.9 F 12/02/24 19:02 Pulse 72 12/02/24 20:56 Resp 20 12/02/24 20:56 BP 125/81 12/02/24 20:56 Pulse Ox 100 12/02/24 20:56 O2 Del Method Room Air 12/02/24 20:56 BMI result Body Mass Index 34.6 General: AOx3, no acute distress Resp: diminished, unable to take deep breaths, crackles R mid lung, conversational hypoxia to the high 80s, improves when not talking CVS: S1, S2, RRR GI: +BS, NT, no distention Skin: Warm, dry Neuro: Cranial nerves II-XII grossly intact bilaterally. Motor grossly intact bilaterally Extremities: No LE edema Psych: Appropriate affect Const: General: No confusion Orientation/consciousness: No confusion Eyes: Direct Ophthalmoscopy: No photophobia Neuro: General: No confusion Results Labs 12/02/24 15:33 12/02/24 15:33 Labs: Laboratory Results - last 24 hr 12/02/24 12/02/24 12/02/24 15:33 15:45 17:09 MCV 89.4 MCH 28.1 MCHC 31.4 RDW 13.1 Plt Count 379 D MPV 9.7 Immature Gran % (Auto) 0.2 Neut % (Auto) 53.9 Lymph % (Auto) 33.1 [place] % (Auto) 6.1 Eos % (Auto) 5.5 H Baso % (Auto) 1.2 Lymph # (Auto) 2.8 [place] # (Auto) 0.5 Eos # (Auto) 0.5 H Baso # (Auto) 0.1 Abs Immat Gran (auto) 0.02 Absolute Neuts (auto) 4.5 Absolute Nucleated RBC 0.000 Nucleated RBC % (auto) 0.0 D-Dimer High Sensitivty < 150 Anion Gap 11 L Estim Creat Clear Calc 88.9 Estimated GFR > 60 Random Glucose 116 H Lactic Acid 2.0 Calcium 9.7 Total Bilirubin 0.3 AST 23 ALT 31 Alkaline Phosphatase 88 B-Natriuretic Peptide < 10 Total Protein 6.8 Albumin 3.9 Urine Color Urine Appearance Urine pH Ur Specific [place] Urine Protein Urine Glucose (UA) Urine Ketones Urine Blood Urine Nitrite Ur Leukocyte Esterase Influenza Type A (PCR) NEGATIVE Influenza Type B (PCR) NEGATIVE RSV RNA Qual (PCR) NEGATIVE SARS-CoV-2 RNA (RT-PCR) NEGATIVE 12/02/24 22:09 MCV MCH MCHC RDW Plt Count MPV Immature Gran % (Auto) Neut % (Auto) Lymph % (Auto) [place] % (Auto) Eos % (Auto) Baso % (Auto) Lymph # (Auto) [place] # (Auto) Eos # (Auto) Baso # (Auto) Abs Immat Gran (auto) Absolute Neuts (auto) Absolute Nucleated RBC Nucleated RBC % (auto) D-Dimer High Sensitivty Anion Gap Estim Creat Clear Calc Estimated GFR Random Glucose Lactic Acid Calcium Total Bilirubin AST ALT Alkaline Phosphatase B-Natriuretic Peptide Total Protein Albumin Urine Color Yellow Urine Appearance Clear Urine pH 6.0 Ur Specific [place] >= 1.030 H Urine Protein Negative Urine Glucose (UA) Negative Urine Ketones Negative Urine Blood Negative Urine Nitrite Negative Ur Leukocyte Esterase Negative Influenza Type A (PCR) Influenza Type B (PCR) RSV RNA Qual (PCR) SARS-CoV-2 RNA (RT-PCR) Imaging Radiologist's Impressions: Impressions Chest X-Ray 12/02/24 15:45 IMPRESSION: Unremarkable chest examination. Electronically signed by: Prasanth Reyes MD 12/02/2024 04:44 PM EDT RP Assessment and Plan (1) Acute hypoxic respiratory failure: Status: Acute (2) Right middle lobe pneumonia: Status: Acute (3) Class 1 obesity: Status: Acute Plan patient is a 54-year-old female with a past medical history significant for hypothyroid, GERD, ADHD, bipolar, type 2 diabetes on Ozempic, and history substance use disorder, sober x9 months, currently residing in a residential, who presented to the ED due to weakness, shortness of breath, chest discomfort, dry cough, nausea, chills and tactile fever. acute hypoxic respiratory failure with recurrent right-sided pneumonia - WBC 8.4, vital signs stable aside from hypoxia, lactic acid normal, no sepsis - oxygen desaturates with conversation and ambulation to the mid 80s - chest x-ray negative - CTA chest negative for PE however does show numerous intensities in the right lung, infectious versus inflammatory. Recommend repeat chest CT in 1 month - BNP normal - COVID/flu/RSV negative - vancomycin and Zosyn - ID and Pulmonary consult - bedside swallow with nursing past, clear liquid diet for now - formal [employer] evaluation to assess for aspiration - follow CBC and BMP type 2 diabetes - diabetic diet when appropriate - sliding scale insulin - due for Ozempic on Thursday hypothyroid - continue home meds GERD - may also play a role in possible aspiration - continue PPI mood disorder - continue home meds class 1 obesity - BMI 34.6 - on GLP 1 - weight loss encouraged full code VTE prophylaxis: Lovenox patient with acute hypoxic respiratory failure with recurrent right-sided pneumonia, requiring admission for at least 2 midnights stay for IV antibiotics and specialist consultation. Quality Stroke Does the patient have a stroke diagnosis?: No VTE Prior VTE?: No VTE Risk Level:: Medical - moderate - high VTE Device Contraindication: Treatment Not Indicated VTE Drug Contraindication: N/A - Med Ordered
[2024-12-03] VITALS: BP 119/74; PULSE 74; RESP 18; TEMP 36.1; O2SAT 95
--- NOTE | 2024-12-03 | PC.NURSE ---
Took over from JARRET Brand at 23:00 pt resting in bed no sign of respiratory distress. ambulated pt to assess oxygen level, O2 dropped to 89 person on room air.
[2024-12-03 01:09] VITALS: BMI 34.9
[2024-12-03] MEDS: 0.9 % Sodium Chloride Flush 3 ML SYRINGE IVFLUSH ×3 (01:22→15:20)
[2024-12-03] MEDS: Piperacillin Sodium/Tazobactam 4.5 GM in 0.9 % Sodium Chloride 100 ML IV ×4 (03:49→20:06)
[2024-12-03 07:40] LABS: MANUAL DIFF FLAG NO
[2024-12-03 07:44] VITALS: BP 106/71; PULSE 68; RESP 18; TEMP 36.2; O2SAT 94
[2024-12-03 07:45] LABS: Basophils Absolute Auto 0.1 X10*3/uL (0.0-0.2); Basophils Percent Auto 1.1 % (0-2); Eosinophils Absolute Auto 0.5 X10*3/uL (0.0-0.4); Hematocrit 39.6 % (37.0-47.0); Hemoglobin 12.2 g/dl (12.0-16.0); Imm Gran Abs Auto 0.02 X10*3/uL (0.00-0.03); Imm Gran Pct Auto 0.3 % (0.0-0.4); Lymphocytes Absolute Auto 2.3 X10*3/uL (1.2-4.9); Lymphocytes Percent Auto 28.4 % (20-40); Mean Corpuscular HGB Conc 30.8 g/dl (31.0-35.0); Mean Corpuscular Hemoglobin 27.9 pg (27.0-33.0); Mean Corpuscular Volume 90.4 fL (80.0-98.0); Mean Platelet Volume 10.1 fL (9.4-12.3); Monocytes Absolute Auto 0.5 X10*3/uL (0.1-1.2); Monocytes Percent Auto 6.8 % (2-11); Neutrophils Absolute Auto 4.6 x10*3/uL (2.0-8.3); Neutrophils Percent Auto 57.4 % (45-73); Platelet Count 339 X10*3/uL (160-400); Red Blood Count 4.38 X10*6/uL (4.20-5.50); Red Cell Distribution Width 13.2 % (11.0-16.0)
[2024-12-03 07:58] LABS: Anion Gap 12 (12-20); Blood Urea Nitrogen 7 mg/dL (9-16); Calcium 9.1 mg/dL (8.4-10.2); Carbon Dioxide 25 mmol/L (22-29); Chloride 107 mmol/L (96-108); Creatinine Clr Calc Pharmacy 88.2; Estimated Glomerular Filt Rate > 60; Glucose Random 90 mg/dL (60-115); Potassium 3.9 mmol/L (3.3-5.1); Sodium 140 mmol/L (135-145)
--- NOTE | 2024-12-03 08:58 | P.PNIM_ITS ---
Subjective Subjective Date of Service: 12/03/24 Interval History: fatigue Physical Exam 2 Vital Signs: Vital Signs: Last Vital Signs Temp 97.2 F 12/03/24 07:44 Pulse 68 12/03/24 07:44 Resp 18 12/03/24 07:44 BP 106/71 12/03/24 07:44 Pulse Ox 94 12/03/24 07:44 O2 Del Method Room Air 12/03/24 07:44 BMI result Body Mass Index 34.9 General: AO X 3, no acute distress Resp: Crackles bilateral, no accessory muscles used CVS: S1,S2,RRR GI: soft, non tender, non distended Neuro: motor grossly intact, alert Psych: appropriate affect, appropriate insight Objective Data Active Medications Acetaminophen (Acetaminophen 325 Mg Tablet) 975 mg PO Q6H PRN PRN Reason: Pain, Mild 1-3,fever,headache Amphetamine/Dextroamphetamine (Amphetamine Mixed Salts 10 Mg Tablet) 10 mg PO TID@0800,1200,1600 [facility] Benzonatate (Benzonatate 100 Mg Capsule) 100 mg PO TID PRN PRN Reason: Cough Calcium Carbonate (Calcium Carbonate 750 Mg Tab.Chew) 750 mg PO Q4H PRN PRN Reason: Heartburn Clonazepam (Clonazepam 1 Mg Tablet) 1 mg PO TID@0800,1400,2000 [facility] Enoxaparin Sodium (Enoxaparin Sodium 40 Mg/0.4 Ml Syringe) 40 mg SUBCUT Q24H [facility] Last Admin: 12/02/24 21:28 Dose: 40 mg Documented By: CODY Gabapentin (Gabapentin 300 Mg Capsule) 300 mg PO QID [facility] Piperacillin Sod/Tazobactam (Sod 4.5 gm/ Sodium Chloride) 100 mls @ 200 mls/hr IV Q6H [facility] Last Admin: 12/03/24 08:20 Dose: 200 mls/hr Documented By: DAPHNIE Vancomycin HCl 1,250 mg/ (Sodium Chloride) 250 mls @ 166.667 mls/hr IV Q12H [facility] Levothyroxine Sodium (Levothyroxine Sodium 100 Mcg Tablet) 100 mcg PO DAILY@0600 [facility] Mccloud Carbonate ([place] Carbonate 300 Mg Capsule) 300 mg PO BID@0800,2000 [facility] Magnesium Hydroxide (Milk Of Magnesia 30 Ml Oral.Susp) 30 ml PO DAILY PRN PRN Reason: Constipation Melatonin (Melatonin 3 Mg Tablet) 6 mg PO BEDTIME PRN PRN Reason: Insomnia Non-Formulary Medication (Bupropion Hcl) 150 mg PO DAILY@0800 [facility] Omeprazole (Omeprazole 20 Mg Capsule.Dr) 20 mg PO BID@0630,1630 [facility] Ondansetron HCl (Ondansetron Hcl 4 Mg/2 Ml Vial) 4 mg IVPUSH Q8H PRN PRN Reason: Nausea and Vomiting Pharmacy Consult (Consult Rx Vancomycin Dosing) 1 each MISCELLANE DAILY PRN PRN Reason: Consult order Prednisone (Prednisone 20 Mg Tablet) 40 mg PO DAILY [facility] Sodium Chloride (0.9 % Sodium Chloride Flush 3 Ml Syringe) 3 ml IVFLUSH QSHIFT [facility] Last Admin: 12/03/24 08:25 Dose: 3 ml Documented By: DAPHNIE Labs 12/03/24 06:34 12/03/24 06:34 Labs: Laboratory Results - last 24 hr 12/02/24 12/02/24 12/02/24 15:33 15:45 17:09 MCV 89.4 MCH 28.1 MCHC 31.4 RDW 13.1 Plt Count 379 D MPV 9.7 Immature Gran % (Auto) 0.2 Neut % (Auto) 53.9 Lymph % (Auto) 33.1 [place] % (Auto) 6.1 Eos % (Auto) 5.5 H Baso % (Auto) 1.2 Lymph # (Auto) 2.8 [place] # (Auto) 0.5 Eos # (Auto) 0.5 H Baso # (Auto) 0.1 Abs Immat Gran (auto) 0.02 Absolute Neuts (auto) 4.5 Absolute Nucleated RBC 0.000 Nucleated RBC % (auto) 0.0 D-Dimer High Sensitivty < 150 Anion Gap 11 L Estim Creat Clear Calc 88.9 Estimated GFR > 60 Random Glucose 116 H Lactic Acid 2.0 Calcium 9.7 Total Bilirubin 0.3 AST 23 ALT 31 Alkaline Phosphatase 88 B-Natriuretic Peptide < 10 Total Protein 6.8 Albumin 3.9 Urine Color Urine Appearance Urine pH Ur Specific [place] Urine Protein Urine Glucose (UA) Urine Ketones Urine Blood Urine Nitrite Ur Leukocyte Esterase Influenza Type A (PCR) NEGATIVE Influenza Type B (PCR) NEGATIVE RSV RNA Qual (PCR) NEGATIVE SARS-CoV-2 RNA (RT-PCR) NEGATIVE 12/02/24 12/03/24 22:09 06:34 MCV 90.4 MCH 27.9 MCHC 30.8 L RDW 13.2 Plt Count 339 MPV 10.1 Immature Gran % (Auto) 0.3 Neut % (Auto) 57.4 Lymph % (Auto) 28.4 [place] % (Auto) 6.8 Eos % (Auto) 6.0 H Baso % (Auto) 1.1 Lymph # (Auto) 2.3 [place] # (Auto) 0.5 Eos # (Auto) 0.5 H Baso # (Auto) 0.1 Abs Immat Gran (auto) 0.02 Absolute Neuts (auto) 4.6 Absolute Nucleated RBC 0.000 Nucleated RBC % (auto) 0.0 D-Dimer High Sensitivty Anion Gap 12 Estim Creat Clear Calc 88.2 Estimated GFR > 60 Random Glucose 90 Lactic Acid Calcium 9.1 D Total Bilirubin AST ALT Alkaline Phosphatase B-Natriuretic Peptide Total Protein Albumin Urine Color Yellow Urine Appearance Clear Urine pH 6.0 Ur Specific [place] >= 1.030 H Urine Protein Negative Urine Glucose (UA) Negative Urine Ketones Negative Urine Blood Negative Urine Nitrite Negative Ur Leukocyte Esterase Negative Influenza Type A (PCR) Influenza Type B (PCR) RSV RNA Qual (PCR) SARS-CoV-2 RNA (RT-PCR) Assessment and Plan (1) Acute hypoxic respiratory failure: Status: Acute Plan 54F PMH the thyroid, GERD, ADHD, bipolar, diabetes, history of substance abuse, presented with fatigue and shortness breath Acute hypoxic respiratory failure due to pneumonia versus pulmonary inflammation Empiric vanco and Zosyn, follow up MRSA swab We will start prednisone Follow up ID and Pulmonary Diabetes Insulin sliding scale Hypothyroid Levothyroxine ADHD Adderall Obesity Weight loss recommended Mood disorder Continue bupropion, lithium DVT prophylaxis Lovenox Full Code reason for continued hospitalization: Fatigue and shortness of breath, hypoxic on ambulation Quality Stroke Does the patient have a stroke diagnosis?: No VTE Prior VTE?: No VTE Risk Level:: Medical - moderate - high VTE Device Contraindication: Treatment Not Indicated VTE Drug Contraindication: N/A - Med Ordered
[2024-12-03] MEDS: predniSONE 20 MG TABLET 40 MG PO (09:08)
[2024-12-03] MEDS: Amphetamine Mixed Salts 10 MG TABLET PO ×3 (09:08→16:02)
[2024-12-03] MEDS: clonazePAM 1 MG TABLET PO ×3 (09:09→20:06)
[2024-12-03] MEDS: buPROPion HCl XL 150 MG TAB.ER.24H PO (09:09)
[2024-12-03] MEDS: Omeprazole 20 MG CAPSULE.DR PO ×2 (09:09→16:02)
[2024-12-03] MEDS: Gabapentin 300 MG CAPSULE PO ×4 (09:09→20:06)
[2024-12-03] MEDS: Levothyroxine Sodium 100 MCG TABLET PO (09:09)
[2024-12-03] MEDS: Lithium Carbonate 300 MG CAPSULE PO ×2 (09:09→20:05)
[2024-12-03] MEDS: vancomycin HCL 1,250 MG in 0.9 % Sodium Chloride 250 ML 166.67 MG IV (09:37)
[2024-12-03 12:00] VITALS: BP 112/58; PULSE 73; RESP 18; TEMP 36.7; O2SAT 94
[2024-12-03 12:59] LABS: MRSA Nasal PCR NEGATIVE (Negative); SA Nasal PCR NEGATIVE (Negative)
--- NOTE | 2024-12-03 14:25 | PM.CNPUL ---
History of Present Illness History of Present Illness Consult date: 12/03/24 Chief complaint: Hypoxia, recurrent pneumonia Narrative: This is an inpatient pulmonary consultation. The patient is a 54-year-old female with a past medical history significant for hypothyroid, GERD, ADHD, bipolar, type 2 diabetes on Ozempic, and history substance use disorder, sober x9 months, currently residing in a senior care, who presented to the ED due to weakness, shortness of breath, chest discomfort, dry cough, nausea, chills and tactile fever. She was admitted for 25 for pneumonia with sepsis and improved upon discharge. The patient reports about 1 week later she was feeling sick again and went to urgent care and was diagnosed with persistent right-sided pneumonia and prescribed Levaquin. She continues to be symptomatic the 0000s reported to the ED today. She does report swallowing issues chronic since having a plate placed in the left side of her neck. She also reports chronic GERD and reports that she is waking in the middle of the night and vomiting liquids into a bucket. She feels that she is unable to take a deep breath, not secondary to pain just does not feel possible. She denies any additional concerns including urinary symptoms or abdominal pain. The patient did undergo a CTA which I personally reviewed. The appears to have bilateral ground-glass opacities primarily in the upper lung zones and also mid lung zones and some ill-defined pulmonary nodules bilaterally. The patient is starting to feel little better she is on IV antibiotics. She did have significant eosinophilia on exam. She denies having any birds or pets she lives in a senior care and denies any mold exposures. Review of Systems Constitutional: Constitutional: Denies body ache(s), Reports chills, Reports fatigue and Reports fever(s) Eyes: Eyes: Denies change in vision and Denies photophobia ENT: Denies nasal congestion, Denies nasal discharge and Denies sore throat Cardiovascular: Cardiovascular: Reports chest pain, Denies rapid heart rate, Reports leg edema, Denies lightheadedness and Reports dyspnea Respiratory: Respiratory: Denies chest congestion, Reports cough, Reports dyspnea and Denies wheezing Gastrointestinal: Gastrointestinal: Denies abdominal pain, Denies diarrhea, Denies nausea and Denies vomiting Genitourinary: Genitourinary: Denies difficulty voiding, Denies dysuria and Denies urinary urgency Musculoskeletal: Musculoskeletal: Denies myalgias Integumentary/Breasts: Skin/Breast: Denies rash Neurologic: Denies confusion Psychiatric: Psychiatric: Denies confusion Endocrine: Endocrine: Reports fatigue Hematologic/Lymphatic: Hematologic/Lymphatic: Denies easy bleeding and Denies easy bruising Allergic/Immunologic: Allergic/Immunologic: Denies wheezing PMFSH Past Medical History Medical History (Updated 12/03/24 @ 14:40 by Madi العراقي MD) Pneumonitis Pulmonary nodules Type 2 diabetes mellitus without complications GERD (gastroesophageal reflux disease) ADHD Hypothyroidism Bipolar 1 disorder Social History Social History Household Members: None Housing: Other Housing Other:: senior care [facility] Do you presently have visiting nurse or other home services: No Patient Tobacco Use Status: Never used Tobacco Smoked in Last 30 Days: No e-Cigarette/Vaping Use: Never Used Use of substances other than those prescribed or required for medical reasons: No Currently Displaying Signs/Symptoms of Drug Intoxication Withdrawal: No Any prior treatment program specific to substance use: No Have you been hit, kicked, punched, or otherwise hurt by someone within the past year? If so, by whom?: No Do you feel safe in your current relationship?: Yes Is there a partner from a previous relationship who is making you feel unsafe now?: No Are you made to feel afraid or neglected: No Advance Directives: No Advance Directives Information Provided: No Do you have a plan to hurt others: No Plan Recently lost weight without trying: No Eating poorly because of decreased appetite: No Nutrition Risks: No Nutritional Risk Patient : No : No Poor oral hygiene: No service: No Meds Allergies Allergy/AdvReac Type Severity Reaction Status Date / Time topiramate [From Topamax] Allergy Unknown Verified 12/02/24 15:07 trazodone Allergy Swelling Verified 12/02/24 15:07 Active Medications: Current Medications Acetaminophen (Acetaminophen 325 Mg Tablet) 975 mg PO Q6H PRN PRN Reason: Pain, Mild 1-3,fever,headache Amphetamine/Dextroamphetamine (Amphetamine Mixed Salts 10 Mg Tablet) 10 mg PO TID@0800,1200,1600 MICHAEL Last Admin: 12/03/24 12:07 Dose: 10 mg Benzonatate (Benzonatate 100 Mg Capsule) 100 mg PO TID PRN PRN Reason: Cough Bupropion HCl (Bupropion Hcl Xl 150 Mg Tab.Er.24h) 150 mg PO DAILY@0800 [facility] Last Admin: 12/03/24 09:09 Dose: 150 mg Calcium Carbonate (Calcium Carbonate 750 Mg Tab.Chew) 750 mg PO Q4H PRN PRN Reason: Heartburn Clonazepam (Clonazepam 1 Mg Tablet) 1 mg PO TID@0800,1400,2000 [facility] Last Admin: 12/03/24 13:47 Dose: 1 mg Enoxaparin Sodium (Enoxaparin Sodium 40 Mg/0.4 Ml Syringe) 40 mg SUBCUT Q24H [facility] Last Admin: 12/02/24 21:28 Dose: 40 mg Gabapentin (Gabapentin 300 Mg Capsule) 300 mg PO QID [facility] Last Admin: 12/03/24 12:07 Dose: 300 mg Piperacillin Sod/Tazobactam (Sod 4.5 gm/ Sodium Chloride) 100 mls @ 200 mls/hr IV Q6H [facility] Last Admin: 12/03/24 13:51 Dose: 200 mls/hr Vancomycin HCl 1,250 mg/ (Sodium Chloride) 250 mls @ 166.667 mls/hr IV Q12H [facility] Last Infusion: 12/03/24 11:15 Dose: Infused Levothyroxine Sodium (Levothyroxine Sodium 100 Mcg Tablet) 100 mcg PO DAILY@0600 [facility] Last Admin: 12/03/24 09:09 Dose: 100 mcg [place] Carbonate ([place] Carbonate 300 Mg Capsule) 300 mg PO BID@0800,2000 [facility] Last Admin: 12/03/24 09:09 Dose: 300 mg Magnesium Hydroxide (Milk Of Magnesia 30 Ml Oral.Susp) 30 ml PO DAILY PRN PRN Reason: Constipation Melatonin (Melatonin 3 Mg Tablet) 6 mg PO BEDTIME PRN PRN Reason: Insomnia Omeprazole (Omeprazole 20 Mg Capsule.Dr) 20 mg PO BID@0630,1630 [facility] Last Admin: 12/03/24 09:09 Dose: 20 mg Ondansetron HCl (Ondansetron Hcl 4 Mg/2 Ml Vial) 4 mg IVPUSH Q8H PRN PRN Reason: Nausea and Vomiting Pharmacy Consult (Consult Rx Vancomycin Dosing) 1 each MISCELLANE DAILY PRN PRN Reason: Consult order Prednisone (Prednisone 20 Mg Tablet) 40 mg PO DAILY [facility] Last Admin: 12/03/24 09:08 Dose: 40 mg Sodium Chloride (0.9 % Sodium Chloride Flush 3 Ml Syringe) 3 ml IVFLUSH QSHIFT [facility] Last Admin: 12/03/24 08:25 Dose: 3 ml Home Medications ?Medication ?Instructions ?Recorded ?Confirmed ?Last Taken ?Type bupropion HCl 150 mg tablet,12 hr 150 mg PO DAILY@0800 11/18/24 12/02/24 12/02/24 History sustained-release clonazepam 1 mg tablet 1 mg PO TID@0800,1400,2000 11/18/24 12/02/24 12/02/24 History dextroamphetamine-amphetamine 10 1 tab PO TID@0800,1200,1600 11/18/24 12/02/24 12/02/24 History mg tablet gabapentin 300 mg capsule 300 mg PO QID 11/18/24 12/02/24 12/02/24 History levothyroxine 100 mcg tablet 100 mcg PO DAILY@0600 11/18/24 12/02/24 12/02/24 History lithium carbonate 300 mg capsule 300 mg PO BID@0800,199911/18/24 12/02/24 12/02/24 History melatonin 5 mg tablet 10 mg PO BEDTIME PRN Sleep 11/18/24 12/02/24 12/02/24 History omeprazole 20 mg tablet,delayed 20 mg PO BID@0630,1630 11/18/24 12/02/24 12/02/24 History release albuterol sulfate 90 mcg/actuation 2 puff inhalation Q3-4H 12/02/24 12/02/24 12/02/24 History aerosol inhaler (Ventolin HFA) Physical Exam Vital Signs: Vital Signs: Last Vital Signs Temp 98.0 F 12/03/24 12:00 Pulse 73 12/03/24 12:00 Resp 18 12/03/24 12:00 BP 112/58 L 12/03/24 12:00 Pulse Ox 94 12/03/24 12:00 O2 Del Method Room Air 12/03/24 12:00 BMI result Body Mass Index 34.9 General: AO X 3, no acute distress Resp: Crackles bilateral, no accessory muscles used CVS: S1,S2,RRR GI: soft, non tender, non distended Neuro: motor grossly intact, alert Psych: appropriate affect, appropriate insight Const: General: No confusion Orientation/consciousness: No confusion Eyes: Direct Ophthalmoscopy: No photophobia Neuro: General: No confusion Results Laboratory Findings 12/03/24 06:34 12/03/24 06:34 Abnormal lab findings: Abnormal Labs 12/02/24 12/02/24 12/03/24 15:33 22:09 06:34 MCHC 30.8 L Eos % (Auto) 5.5 H 6.0 H Eos # (Auto) 0.5 H 0.5 H Anion Gap 11 L BUN 7 L Random Glucose 116 H Ur Specific [place] >= 1.030 H Assessment and Plan (1) Acute hypoxic respiratory failure: Status: Acute (2) Pulmonary nodules: Status: Acute (3) Pneumonitis: Status: Acute Plan The patient's presentation is very suspicious for aspiration pneumonitis. Both the fact that she has had her complications after having surgery and also the fact that she is taking a GLP 1 inhibitor causing dysmotility disorder. I agree with the barium swallow. However, the manifestation of inflammation nodular densities are more in the mid and upper lung zones. Would suspect hypersensitivity pneumonitis is another potential etiology. She does have significant eosinophilia on exam. Will go ahead and test for other inflammatory conditions. Recommendations: Blood work requested Continue broad-spectrum antibiotics Agree with the barium swallow. Depending on the findings the barium swallow she may benefit from a promotility agent. In addition 1 May question if the GLP 1 inhibitor is potentially causing worsening effect of her dysmotility if she does have some and this is a safe medication to continue. On my anecdotal observation, I have already absurd recurrent lower respiratory infections facilitated by the GLP 1 inhibitor. Continue prednisone 40 mg at is very likely she does have a inflammatory condition. Titrate oxygen to maintain a pulse ox above 90%. Would recommend keeping head of bed elevated Procedures Date of Service Date of Service: 12/03/24
[2024-12-03 15:08] LABS: Estimated Average Glucose 117 mg/dL; Hemoglobin A1C 122.9921 umol/L; Hemoglobin A1c % 5.7 % (<6.0); Total Hemoglobin (HGBA1C) 3188.8279 umol/L
[2024-12-03 15:33] VITALS: BP 105/68; PULSE 70; RESP 16; TEMP 36.8; O2SAT 96
[2024-12-03 15:52] LABS: Amphetamine Screen Urine Not Detected (Not Detect); Barbiturates, Urine Not Detected (Not Detect); Benzodiazepines Screen Urine Not Detected (Not Detect); Buprenorphine Scr Not Detected (Not Detect); Cannabinoid Screen Urine Not Detected (Not Detect); Cocaine Screen Urine Not Detected (Not Detect); Fentanyl, urine Not Detected (Not Detect); Methadone Screen, Urine Not Detected (Not Detect); Opiate Screen Urine Not Detected (Not Detect); Oxycodone Screen Urine Not Detected (Not Detect); Phencyclidine Screen Urine Not Detected (Not Detect)
[2024-12-03 16:11] LABS: Erythrocyte Sedimentation Rate 12 MM/HR (0-20)
[2024-12-03 19:33] VITALS: BP 113/72; PULSE 80; RESP 20; TEMP 36.6; O2SAT 93
[2024-12-03] MEDS: Enoxaparin Sodium 40 MG/0.4 ML SYRINGE SUBCUT (20:05)
[2024-12-03 23:42] VITALS: BP 117/60; PULSE 87; RESP 18; TEMP 35.9; O2SAT 98
[2024-12-04] MEDS: 0.9 % Sodium Chloride Flush 3 ML SYRINGE IVFLUSH ×4 (01:37→21:20)
[2024-12-04] MEDS: Piperacillin Sodium/Tazobactam 4.5 GM in 0.9 % Sodium Chloride 100 ML IV ×4 (02:11→21:26)
[2024-12-04 04:00] VITALS: BP 116/75; PULSE 100; RESP 18; TEMP 36.3; O2SAT 93
[2024-12-04] MEDS: Levothyroxine Sodium 100 MCG TABLET PO (05:39)
[2024-12-04] MEDS: Omeprazole 20 MG CAPSULE.DR PO ×2 (05:39→16:47)
[2024-12-04 06:32] LABS: MANUAL DIFF FLAG NO
[2024-12-04 06:38] LABS: Basophils Absolute Auto 0.1 X10*3/uL (0.0-0.2); Basophils Percent Auto 0.4 % (0-2); Eosinophils Absolute Auto 0.1 X10*3/uL (0.0-0.4); Eosinophils Percent Auto 1.2 % (0-4); Hemoglobin 11.6 g/dl (12.0-16.0); Imm Gran Abs Auto 0.05 X10*3/uL (0.00-0.03); Imm Gran Pct Auto 0.4 % (0.0-0.4); Lymphocytes Absolute Auto 3.1 X10*3/uL (1.2-4.9); Lymphocytes Percent Auto 27.5 % (20-40); Mean Corpuscular HGB Conc 32.2 g/dl (31.0-35.0); Mean Corpuscular Hemoglobin 28.5 pg (27.0-33.0); Mean Corpuscular Volume 88.5 fL (80.0-98.0); Mean Platelet Volume 9.7 fL (9.4-12.3); Monocytes Absolute Auto 0.7 X10*3/uL (0.1-1.2); Monocytes Percent Auto 6.6 % (2-11); Neutrophils Absolute Auto 7.1 x10*3/uL (2.0-8.3); Neutrophils Percent Auto 63.9 % (45-73); Platelet Count 365 X10*3/uL (160-400); Red Blood Count 4.07 X10*6/uL (4.20-5.50); Red Cell Distribution Width 13.1 % (11.0-16.0); White Blood Count 11.2 X10*3/uL (4.8-10.8)
[2024-12-04 06:50] LABS: Anion Gap 13 (12-20); Blood Urea Nitrogen 10 mg/dL (9-16); Calcium 9.3 mg/dL (8.4-10.2); Carbon Dioxide 26 mmol/L (22-29); Chloride 108 mmol/L (96-108); Creatinine Clr Calc Pharmacy 81.9; Estimated Glomerular Filt Rate > 60; Glucose Random 106 mg/dL (60-115); Potassium 3.7 mmol/L (3.3-5.1); Sodium 143 mmol/L (135-145)
[2024-12-04 07:56] VITALS: BP 108/61; PULSE 88; RESP 16; TEMP 37; O2SAT 91
--- NOTE | 2024-12-04 07:58 | MHC.CM.PN ---
PT REPORTS SHE RESIDES AT [facility], A SOBER LIVING HOME IN [place] SHE IS INDEPENDENT WITH ALL CARE AND USES A CANE PRN SHE HAS MENTAL HEALTH PROVIDERS SHE SEES VIRTUALLY SHE DECLINES TO COMPLETE A HCP PCP: RAMESH FAULKNER DCP: RETURN TO [facility] VIA PRIVATE TRANSPORT
[2024-12-04] MEDS: Gabapentin 300 MG CAPSULE PO ×4 (08:14→21:20)
[2024-12-04] MEDS: clonazePAM 1 MG TABLET PO ×3 (08:14→21:21)
[2024-12-04] MEDS: Amphetamine Mixed Salts 10 MG TABLET PO ×3 (08:14→16:48)
[2024-12-04] MEDS: predniSONE 20 MG TABLET 40 MG PO (08:14)
[2024-12-04] MEDS: Lithium Carbonate 300 MG CAPSULE PO ×2 (08:15→21:21)
[2024-12-04] MEDS: buPROPion HCl XL 150 MG TAB.ER.24H PO (08:15)
--- NOTE | 2024-12-04 08:28 | HO.PM.IMPN ---
Subjective Subjective Date of Service: 12/04/24 Interval History: fatigue Eyes Eyes: Denies photophobia Neurologic Neurologic: Denies confusion Psychiatric Psychiatric: Denies confusion Physical Exam Vital Signs: Vital Signs: Last Vital Signs Temp 98.6 F 12/04/24 07:56 Pulse 88 12/04/24 07:56 Resp 16 12/04/24 07:56 BP 108/61 12/04/24 07:56 Pulse Ox 91 L 12/04/24 07:56 O2 Del Method Room Air 12/04/24 07:56 BMI result Body Mass Index 34.9 General: AO X 3, no acute distress Resp: Crackles bilateral, no accessory muscles used CVS: S1,S2,RRR GI: soft, non tender, non distended Neuro: motor grossly intact, alert Psych: appropriate affect, appropriate insight Const: General: No confusion Orientation/consciousness: No confusion Eyes: Direct Ophthalmoscopy: No photophobia Neuro: General: No confusion Objective Data Active Medications Acetaminophen (Acetaminophen 325 Mg Tablet) 975 mg PO Q6H PRN PRN Reason: Pain, Mild 1-3,fever,headache Amphetamine/Dextroamphetamine (Amphetamine Mixed Salts 10 Mg Tablet) 10 mg PO TID@0800,1200,1600 [facility] Last Admin: 12/04/24 08:14 Dose: 10 mg Documented By: DAPHNIE Benzonatate (Benzonatate 100 Mg Capsule) 100 mg PO TID PRN PRN Reason: Cough Bupropion HCl (Bupropion Hcl Xl 150 Mg Tab.Er.24h) 150 mg PO DAILY@0800 [facility] Last Admin: 12/04/24 08:15 Dose: 150 mg Documented By: DAPHNIE Calcium Carbonate (Calcium Carbonate 750 Mg Tab.Chew) 750 mg PO Q4H PRN PRN Reason: Heartburn Clonazepam (Clonazepam 1 Mg Tablet) 1 mg PO TID@0800,1400,2000 [facility] Last Admin: 12/04/24 08:14 Dose: 1 mg Documented By: DAPHNIE Enoxaparin Sodium (Enoxaparin Sodium 40 Mg/0.4 Ml Syringe) 40 mg SUBCUT Q24H [facility] Last Admin: 12/03/24 20:05 Dose: 40 mg Documented By: CASE Gabapentin (Gabapentin 300 Mg Capsule) 300 mg PO QID [facility] Last Admin: 12/04/24 08:14 Dose: 300 mg Documented By: DAPHNIE Piperacillin Sod/Tazobactam (Sod 4.5 gm/ Sodium Chloride) 100 mls @ 200 mls/hr IV Q6H [facility] Last Admin: 12/04/24 08:11 Dose: 100 mls/hr Documented By: DAPHNIE Levothyroxine Sodium (Levothyroxine Sodium 100 Mcg Tablet) 100 mcg PO DAILY@0600 [facility] Last Admin: 12/04/24 05:39 Dose: 100 mcg Documented By: CASE [place] Carbonate ([place] Carbonate 300 Mg Capsule) 300 mg PO BID@0800,1999 [facility] Last Admin: 12/04/24 08:15 Dose: 300 mg Documented By: DAPHNIE Magnesium Hydroxide (Milk Of Magnesia 30 Ml Oral.Susp) 30 ml PO DAILY PRN PRN Reason: Constipation Melatonin (Melatonin 3 Mg Tablet) 6 mg PO BEDTIME PRN PRN Reason: Insomnia Omeprazole (Omeprazole 20 Mg Capsule.Dr) 20 mg PO BID@0630,1630 [facility] Last Admin: 12/04/24 05:39 Dose: 20 mg Documented By: CASE Ondansetron HCl (Ondansetron Hcl 4 Mg/2 Ml Vial) 4 mg IVPUSH Q8H PRN PRN Reason: Nausea and Vomiting Prednisone (Prednisone 20 Mg Tablet) 40 mg PO DAILY [facility] Last Admin: 12/04/24 08:14 Dose: 40 mg Documented By: DAPHNIE Sodium Chloride (0.9 % Sodium Chloride Flush 3 Ml Syringe) 3 ml IVFLUSH QSHIFT [facility] Last Admin: 12/04/24 08:12 Dose: 3 ml Documented By: DAPHNIE Labs 12/04/24 06:18 12/04/24 06:18 Labs: Laboratory Results - last 24 hr 12/03/24 12/03/24 12/03/24 06:34 11:40 15:20 MCV MCH MCHC RDW Plt Count MPV Immature Gran % (Auto) Neut % (Auto) Lymph % (Auto) [place] % (Auto) Eos % (Auto) Baso % (Auto) Lymph # (Auto) [place] # (Auto) Eos # (Auto) Baso # (Auto) Abs Immat Gran (auto) Absolute Neuts (auto) Absolute Nucleated RBC Nucleated RBC % (auto) ESR 12 Anion Gap Estim Creat Clear Calc Estimated GFR Random Glucose Estimat Average Glucose 117 Hemoglobin A1c % 5.7 Calcium Nasal Screen MRSA (PCR) NEGATIVE Nasal S. aureus Screen NEGATIVE Nasal MRSA/S.aureus Interp SEE NOTE Urine Opiates Screen Ur Buprenorphine Scrn Ur Oxycodone Screen Urine Methadone Screen Urine Fentanyl Screen Ur Barbiturates Screen Ur Phencyclidine Scrn Ur Amphetamines Screen U Benzodiazepines Scrn Urine Cocaine Screen U Marijuana (THC) Screen 12/03/24 12/04/24 15:29 06:18 MCV 88.5 MCH 28.5 MCHC 32.2 RDW 13.1 Plt Count 365 MPV 9.7 Immature Gran % (Auto) 0.4 Neut % (Auto) 63.9 Lymph % (Auto) 27.5 [place] % (Auto) 6.6 Eos % (Auto) 1.2 Baso % (Auto) 0.4 Lymph # (Auto) 3.1 [place] # (Auto) 0.7 Eos # (Auto) 0.1 Baso # (Auto) 0.1 Abs Immat Gran (auto) 0.05 H Absolute Neuts (auto) 7.1 Absolute Nucleated RBC 0.000 Nucleated RBC % (auto) 0.0 ESR Anion Gap 13 Estim Creat Clear Calc 81.9 Estimated GFR > 60 Random Glucose 106 Estimat Average Glucose Hemoglobin A1c % Calcium 9.3 Nasal Screen MRSA (PCR) Nasal S. aureus Screen Nasal MRSA/S.aureus Interp Urine Opiates Screen Not Detected Ur Buprenorphine Scrn Not Detected Ur Oxycodone Screen Not Detected Urine Methadone Screen Not Detected Urine Fentanyl Screen Not Detected Ur Barbiturates Screen Not Detected Ur Phencyclidine Scrn Not Detected Ur Amphetamines Screen Not Detected U Benzodiazepines Scrn Not Detected Urine Cocaine Screen Not Detected U Marijuana (THC) Screen Not Detected Microbiology Microbiology Results: Microbiology 12/02/24 15:33 Blood Culture - Preliminary Blood - Venous No growth after 24 hours. 12/02/24 15:33 Blood Culture - Preliminary Blood - Venous No growth after 24 hours. Assessment and Plan (1) Acute hypoxic respiratory failure: Status: Acute Plan 54F PMH the thyroid, GERD, ADHD, bipolar, diabetes, history of substance abuse, presented with fatigue and shortness breath Acute hypoxic respiratory failure due to pneumonia versus pneumonitis Empiric Zosyn, MRSA swab negative discontinued vancomycin Continue prednisone Pulmonary appreciated likely GLP 1 contributing will discontinue Diabetes Insulin sliding scale Hypothyroid Levothyroxine ADHD Adderall Obesity Weight loss recommended Mood disorder Continue bupropion, lithium DVT prophylaxis Lovenox Full Code reason for continued hospitalization: Fatigue and shortness of breath, hypoxic on ambulation Quality Stroke Does the patient have a stroke diagnosis?: No VTE Prior VTE?: No VTE Risk Level:: Medical - moderate - high VTE Device Contraindication: Treatment Not Indicated VTE Drug Contraindication: N/A - Med Ordered
[2024-12-04 09:13] LABS: Adenovirus PCR Not Detected (Not Detect.); Bordetella parapertussis PCR Not Detected (Not Detect.); Bordetella pertussis PCR Not Detected (Not Detect.); Chlamydia pneumoniae PCR Not Detected (Not Detect.); Coronavirus 229E PCR Not Detected (Not Detect.); Coronavirus HKU1 PCR Not Detected (Not Detect.); Coronavirus NL63 PCR Not Detected (Not Detect.); Coronavirus OC43 PCR Not Detected (Not Detect.); Human metapneumovirus PCR Not Detected (Not Detect.); Influenza A PCR Not Detected (Not Detect.); Influenza B PCR Not Detected (Not Detect.); Mycoplasma pneumoniae PCR Not Detected (Not Detect.); Parainfluenza 1 PCR Not Detected (Not Detect.); Parainfluenza 2 PCR Not Detected (Not Detect.); Parainfluenza 3 PCR Not Detected (Not Detect.); Parainfluenza 4 PCR Not Detected (Not Detect.); RSV PCR Not Detected (Not Detect.); Rhino/Enterovirus PCR Not Detected (Not Detect.)
[2024-12-04 09:29] LABS: Influenza A H1 PCR Not Detected (Not Detect.); Influenza A H1-2009 PCR Not Detected (Not Detect.); Influenza A H3 PCR Not Detected (Not Detect.); SARS-CoV-2 PCR Not Detected (Not Detect.)
[2024-12-04 12:00] VITALS: BP 116/61; PULSE 88; RESP 18; TEMP 36.8; O2SAT 94
[2024-12-04 16:00] VITALS: BP 113/60; PULSE 81; RESP 18; TEMP 36.8; O2SAT 94
[2024-12-04 20:00] VITALS: BP 120/76; PULSE 87; RESP 18; TEMP 36.6; O2SAT 92
[2024-12-04] MEDS: Enoxaparin Sodium 40 MG/0.4 ML SYRINGE SUBCUT (21:21)
[2024-12-04 23:40] VITALS: BP 113/74; PULSE 80; RESP 18; TEMP 36.7; O2SAT 92
[2024-12-05 03:38] VITALS: BP 114/68; PULSE 80; RESP 18; TEMP 36.3; O2SAT 97
[2024-12-05] MEDS: Piperacillin Sodium/Tazobactam 4.5 GM in 0.9 % Sodium Chloride 100 ML IV ×2 (04:57→08:00)
[2024-12-05] MEDS: Omeprazole 20 MG CAPSULE.DR PO (05:01)
[2024-12-05] MEDS: Levothyroxine Sodium 100 MCG TABLET PO (05:01)
[2024-12-05 06:53] LABS: MANUAL DIFF FLAG NO
[2024-12-05 07:08] LABS: Basophils Absolute Auto 0.1 X10*3/uL (0.0-0.2); Basophils Percent Auto 0.7 % (0-2); Eosinophils Absolute Auto 0.2 X10*3/uL (0.0-0.4); Eosinophils Percent Auto 2.1 % (0-4); Hematocrit 38.6 % (37.0-47.0); Hemoglobin 12.3 g/dl (12.0-16.0); Imm Gran Abs Auto 0.07 X10*3/uL (0.00-0.03); Imm Gran Pct Auto 0.6 % (0.0-0.4); Lymphocytes Absolute Auto 3.9 X10*3/uL (1.2-4.9); Lymphocytes Percent Auto 36.2 % (20-40); Mean Corpuscular HGB Conc 31.9 g/dl (31.0-35.0); Mean Corpuscular Hemoglobin 28.5 pg (27.0-33.0); Mean Corpuscular Volume 89.4 fL (80.0-98.0); Monocytes Absolute Auto 0.7 X10*3/uL (0.1-1.2); Neutrophils Absolute Auto 5.9 x10*3/uL (2.0-8.3); Neutrophils Percent Auto 54.4 % (45-73); Platelet Count 399 X10*3/uL (160-400); Red Blood Count 4.32 X10*6/uL (4.20-5.50); Red Cell Distribution Width 13.2 % (11.0-16.0); White Blood Count 10.9 X10*3/uL (4.8-10.8)
[2024-12-05 07:14] LABS: Anion Gap 11 (12-20); Blood Urea Nitrogen 11 mg/dL (9-16); Calcium 9.2 mg/dL (8.4-10.2); Carbon Dioxide 25 mmol/L (22-29); Chloride 108 mmol/L (96-108); Estimated Glomerular Filt Rate 60; Glucose Random 93 mg/dL (60-115); Potassium 3.3 mmol/L (3.3-5.1); Sodium 141 mmol/L (135-145)
[2024-12-05 07:37] LABS: HIV Num 1 23.38 S/CO (0.00-0.99)
[2024-12-05 07:41] VITALS: BP 133/81; PULSE 78; RESP 16; TEMP 36.2; O2SAT 95
[2024-12-05] MEDS: Gabapentin 300 MG CAPSULE PO (07:58)
[2024-12-05] MEDS: buPROPion HCl XL 150 MG TAB.ER.24H PO (07:58)
[2024-12-05] MEDS: predniSONE 20 MG TABLET 40 MG PO (07:58)
[2024-12-05] MEDS: clonazePAM 1 MG TABLET PO (07:58)
[2024-12-05] MEDS: Lithium Carbonate 300 MG CAPSULE PO (07:59)
[2024-12-05] MEDS: Amphetamine Mixed Salts 10 MG TABLET PO (07:59)
[2024-12-05] MEDS: 0.9 % Sodium Chloride Flush 3 ML SYRINGE IVFLUSH (08:00)
[2024-12-05 08:59] LABS: HIV AB/AG Nonreactive (Nonreactive); HIV Num 2 0.14 S/CO; HIV Num 3 0.07 S/CO
--- NOTE | 2024-12-05 08:59 | PM.DS ---
DS: Providers Provider Date of Service: 12/05/24 Date of admission: 12/02/24 20:30 Date of discharge: 12/05/24 Primary care physician: JUVENTINO Awad Consults: 12/02/24 20:55 Consult to Infectious Diseases Routine Consulting Provider: [facility] Reason for consultation: recurrent pneumonia, numerous densitive infectious vs inflammatory Has provider been notified: No Consult to Pulmonology Routine Consulting Provider: [facility] Reason for consultation: recurrent pneumonia, R lung densities infectious vs inflammatory Has provider been notified: No DS: Diagnosis Discharge Diagnosis (1) Acute hypoxic respiratory failure: Status: Acute DS: Summary Hospital Course Hospital Course: from initial hpi: 54-year-old female with a past medical history significant for hypothyroid, GERD, ADHD, bipolar, type 2 diabetes on Ozempic, and history substance use disorder, sober x9 months, currently residing in a [facility], who presented to the ED due to weakness, shortness of breath, chest discomfort, dry cough, nausea, chills and tactile fever. She was admitted for 25 for pneumonia with sepsis and improved upon discharge. The patient reports about 1 week later she was feeling sick again and went to urgent care and was diagnosed with persistent right-sided pneumonia and prescribed Levaquin. She continues to be symptomatic the 0000s reported to the ED today. She does report swallowing issues chronic since having a plate placed in the left side of her neck. She also reports chronic GERD and reports that she is waking in the middle of the night and vomiting liquids into a bucket. She feels that she is unable to take a deep breath, not secondary to pain just does not feel possible. She denies any additional concerns including urinary symptoms or abdominal pain. hospital course: Patient was admitted for acute hypoxic respiratory failure due to pneumonia versus pneumonitis. Was initially treated with vancomycin and Zosyn, MRSA swab was negative so vancomycin was discontinued. Was given prednisone. Was seen by Pulmonary who felt GLP 1 likely contributing although patient feels that this does not line up chronologically. Patient is feeling much better and is on room air will be discharged on 5 more days of prednisone, Ceftin, azithromycin. For diabetes was continued on insulin sliding scale. For hypothyroid was continued on levothyroxine. For ADHD continued on Adderall. For obesity weight loss recommended. For mood disorder continued on bupropion and lithium. Time Attestation Discharge Coordination Time (in mins): 33 Quality: Safe Use of Opioids Does Pt have an Active Cancer Diagnosis on the Problem List?: No Quality: Stroke Does the patient have a stroke diagnosis?: No Physical Exam Vital Signs: Vital Signs: Last Vital Signs Temp 97.2 F 12/05/24 07:41 Pulse 78 12/05/24 07:41 Resp 16 12/05/24 07:41 BP 133/81 12/05/24 07:41 Pulse Ox 95 12/05/24 07:41 O2 Del Method Room Air 12/05/24 07:41 BMI result Body Mass Index 34.9 General: AO X 3, no acute distress Resp: CTA bilateral, no accessory muscles used CVS: S1,S2,RRR GI: soft, non tender, non distended Neuro: motor grossly intact, alert Psych: appropriate affect, appropriate insight DS: Data Data Completed and Pending Labs on day of discharge: Laboratory Results - last 24 hr 12/03/24 12/05/24 15:00 06:13 WBC 10.9 H RBC 4.32 Hgb 12.3 Hct 38.6 MCV 89.4 MCH 28.5 MCHC 31.9 RDW 13.2 Plt Count 399 MPV 10.0 Immature Gran % (Auto) 0.6 H Neut % (Auto) 54.4 Lymph % (Auto) 36.2 [place] % (Auto) 6.0 Eos % (Auto) 2.1 Baso % (Auto) 0.7 Lymph # (Auto) 3.9 [place] # (Auto) 0.7 Eos # (Auto) 0.2 Baso # (Auto) 0.1 Abs Immat Gran (auto) 0.07 H Absolute Neuts (auto) 5.9 Absolute Nucleated RBC 0.000 Nucleated RBC % (auto) 0.0 Sodium 141 Potassium 3.3 Chloride 108 Carbon Dioxide 25 Anion Gap 11 L BUN 11 Creatinine 0.97 Estim Creat Clear Calc 81.0 Estimated GFR 60 Random Glucose 93 Calcium 9.2 Respiratory Panel Mason See Note Adenovirus (Rapid PCR) Not Detected B.pert (TEM-PCR) Not Detected B.parapertussis DNA PCR Not Detected C. pneumoniae DNA (PCR) Not Detected Coronavirus OC43 (PCR) Not Detected Coronavirus HKU1 (PCR) Not Detected Coronavirus 229E (PCR) Not Detected Coronavirus NL63 (PCR) Not Detected Human Metapneumovir PCR Not Detected Influenza A (RT-PCR) Not Detected Influenza A (H1) PCR Not Detected Influ A (H1/09) PCR Not Detected Influenza A (H3) PCR Not Detected Influenza B (RT-PCR) Not Detected M. pneumoniae (PCR) Not Detected Parainfluenza 1 (PCR) Not Detected Parainfluenza 2 (PCR) Not Detected Parainfluenza 3 (PCR) Not Detected Parainfluenza 4 (PCR) Not Detected RSV (PCR) Not Detected Entero/Rhino (PCR) Not Detected SARS-CoV-2 RNA (RT-PCR) Not Detected Preliminary micro results at discharge 12/02/24 15:33 Blood Culture - Preliminary Blood - Venous No growth after 48 hours. 12/02/24 15:33 Blood Culture - Preliminary Blood - Venous No growth after 48 hours. Discharge Plan Discharge Anticipated Discharge Date/Time: 12/05/24 08:57 Patient Disposition: Home, Self-Care Discharge Diagnosis: pna, pneumonitis Referrals: Leah Lewis FNP [Primary Care Provider] - 1 Week Discharge Medications: New prednisone 20 mg Tablet 40 mg PO DAILY Qty: 10 0RF cefuroxime axetil 500 mg tablet 500 mg PO BID Qty: 10 0RF azithromycin 500 mg tablet 500 mg PO DAILY 5 Days Qty: 5 0RF Continued bupropion HCl 150 mg tablet sustained-release 12 hr 150 mg PO DAILY@0800 dextroamphetamine-amphetamine 10 mg tablet 1 tab PO TID@0800,1200,1600 clonazepam 1 mg tablet 1 mg PO TID@0800,1400,2000 levothyroxine 100 mcg Tablet 100 mcg PO DAILY@0600 lithium carbonate 300 mg Capsule 300 mg PO BID@0800,2000 gabapentin 300 mg Capsule 300 mg PO QID Rx Instructions: Taken at 0800,1200,1600,2000. omeprazole 20 mg Tablet,Delayed Release (Dr/Ec) 20 mg PO BID@0630,1630 melatonin 5 mg Tablet 10 mg PO BEDTIME PRN (Reason: Sleep) albuterol sulfate [Ventolin HFA] 90 mcg/actuation HFA aerosol inhaler 2 puff inhalation Q3-4H Discharge Orders: Discharge Order (Routine); Ordered 12/05/24 Ordered By: Deniz Ferrara Diet: Advance to usual diet Activity on Discharge: As tolerated Stand Alone Forms: Patient Portal Discharge page Print Language: Singaporean Other Ambulatory Orders: [place] Modified Barium Swallow (Routine) Timeframe: 1 Week Facility: [facility] - Location: Radiology Ordered By: Deniz Ferrara Care Plan Goals: recovery Health Concerns: pna, penumonitis Plan of Treatment: 5 days prednisone, ceftin, azithro, mbvianey with speech as outpatient Assessment: see above Patient Instructions: Hypoxia (ED)
--- NOTE | 2024-12-05 09:39 | MHC.CM.PN ---
Patient medically cleared for dc home self care. Will return to [facility] (sober living home) and their staff will provide transport. RN aware.
--- NOTE | 2024-12-05 09:51 | MHC.SL.SWA ---
Speech Pathologist Impression: Chronic Dysphagia Risk of Aspiration Due to: Hx of Aspiration PNA Hx of Dysphagia Dysphasia Diet Status: Regular diet with thins, recc OP MBSS to visualize physiological function of swallow and determine most appropriate diet/SET O TYPE OPERATOR tx Liquid Consistency and Strategies for Safe Swallow: Liquid Intake Recommendation: Thin Liquid Intake Strategies: Solid Food Consistency: Dietary Recommendations: Regular Additional Modifications to Solid Foods: Oral Medication Intake: Whole with Liquid Please contact the pharmacy regarding appropriate crushable or liquid drug formulations that are available whenever modified delivery is recommended. Compensatory Strategies and Precautions to be Taken for Safe Swallow: Supervision While Eating and Drinking for Safe Swallow: None Needed Foods to Avoid: Swallowing Recommended Treatments: Recommendation for Speech: Further Testing Needed Modified Barium Swallow Study - Outpatient Comment: Pt has hx of neck surgery +10 years ago with acute dysphagia s/p procedure. Pt had MBSS and was on pureed diet. Pt recently had 3 episodes of PNA, one aspiration PNA. Pt reports difficulty swallowing volitionally, with infrequent cough that has been chronic. Pt has modified her diet, avoiding meats, steaming vegetables, eating yogurt and soft solids. Pt provided with education on physiological function of swallow and dysphagia characteristics. Pt in agreement with OP MBSS and possible SET O TYPE OPERATOR intervention to treat chronic dysphagia. Frequency/Duration: Date Range for Service Req: Timeline to reassess: Student Counsellor Clinican/Clinical Fellow: No Supervisory Statement: I have reviewed and agree with the student/clinical fellow's documentation: N/A Speech Language Pathologist: Radha Meek M.S., [facility]3]-SET O TYPE OPERATOR
[2024-12-05 18:32] LABS: IgA 241 mg/dL (47-310); IgG 1269 mg/dL (600-1640); IgM 66 mg/dL (50-300)
[2024-12-06 02:39] LABS: Immunoglobulin E 17 kU/L (<OR=114)
[2024-12-06 12:48] LABS: Anti Nuclear Antibody Screen NEGATIVE (NEGATIVE)
[2024-12-06 16:58] LABS: Cyclic Citrullinated Peptide <16 UNITS
[2024-12-07 19:19] LABS: Mycoplasma Pneumoniae - IgG <=0.90 (<=0.90); Mycoplasma Pneumoniae - IgM 47 U/mL (<770)
[2024-12-09 12:34] LABS: Asperg fumigatus Precip Abs NEGATIVE (NEGATIVE); Micropoly faeni Abs NEGATIVE (NEGATIVE); Pigeon serum Abs NEGATIVE (NEGATIVE); Saccharo pora viridis Abs NEGATIVE (NEGATIVE); Thermo candidus Abs NEGATIVE (NEGATIVE); Thermoa vulgaris #1 NEGATIVE (NEGATIVE)
== END 2024-12-05 10:16 | disposition home or self-care (01) | DRG 139 ==
LOC: HO.ED 19:59 → HO.EDOVER 20:57 → HO.S3 22:44
PROVIDERS: Hospitalist; Physician Assistant Medical; Admitting Provider Physician Assistant; Emergency Provider Emergency Medicine Emergency Medical Services; PCP Nurse Practitioner Family; Visit Provider Internal Medicine
DX: J18.9 Pneumonia, unspecified organism (principal); J96.01 Acute respiratory failure with hypoxia; J69.0 Pneumonitis due to inhalation of food and vomit; E66.811 Obesity, class 1; E11.9 Type 2 diabetes mellitus without complications; F90.9 Attention-deficit hyperactivity disorder, unspecified type; E03.9 Hypothyroidism, unspecified; F39 Unspecified mood [affective] disorder; Z71.3 Dietary counseling and surveillance; Z68.34 Body mass index [BMI] 34.0-34.9, adult; Z20.822 Contact with and (suspected) exposure to COVID-19; Z79.890 Hormone replacement therapy; Z79.899 Other long term (current) drug therapy
CPT/HCPCS: 0241U; 36415; 71046; 71275; 80048; 80053; 80307; 81003; 82784; 82785; 83036; 83605; 83880; 84484; 85025; 85379; 85652; 86038; 86200; 86331; 86606; 86609; 86738; 87040; 87389; 87633; 87640; 87641; 92610; 93005; 94640; 99285; J1650; J2543; J3370; J3371; Q9967

== ENCOUNTER → 2024-12-02 15:04 | Outpatient (BNV) | payer MEDICAID, SELFPAY | PROVIDERS: Admitting Provider Physician Assistant; Emergency Provider Emergency Medicine Emergency Medical Services; PCP Nurse Practitioner Family; Visit Provider Internal Medicine | DX: R94.31 Abnormal electrocardiogram [ECG] [EKG] (principal); R06.00 Dyspnea, unspecified | CPT/HCPCS: 93010 ==

== ENCOUNTER → 2024-12-02 15:41 | Outpatient (BNV) | payer MEDICAID, SELFPAY | PROVIDERS: Emergency Provider Emergency Medicine Emergency Medical Services; PCP Nurse Practitioner Family; Visit Provider Radiology Diagnostic Radiology | DX: R06.02 Shortness of breath (principal) | CPT/HCPCS: 71046; 71275 ==

== ENCOUNTER → 2024-12-02 20:30 | Outpatient (BNV) | payer MEDICAID, SELFPAY | PROVIDERS: Admitting Provider Physician Assistant; Emergency Provider Emergency Medicine Emergency Medical Services; PCP Nurse Practitioner Family; Visit Provider Hospitalist | DX: J96.01 Acute respiratory failure with hypoxia (principal); R91.8 Other nonspecific abnormal finding of lung field; J98.4 Other disorders of lung | CPT/HCPCS: 99223 ==

== ENCOUNTER → 2024-12-02 20:30 | Outpatient (BNV) | payer MEDICAID, SELFPAY | PROVIDERS: Admitting Provider Physician Assistant; Emergency Provider Emergency Medicine Emergency Medical Services; PCP Nurse Practitioner Family; Visit Provider Internal Medicine | DX: J96.01 Acute respiratory failure with hypoxia (principal) | CPT/HCPCS: 99223; 99232; 99239 ==

== ENCOUNTER 2024-12-09 09:36 | Inpatient (IN) | payer MEDICAID, SELFPAY ==
--- NOTE | ~2024-12-09 | XR_ITS ---
EXAMINATION: XR CHEST 1 VIEW HISTORY: sob COMPARISON: Comparison is made with the prior examination dated 12/02/2024. FINDINGS: A single AP portable view of the chest performed at 10:45 AM is submitted. There are patchy densities at the lung bases which may represent atelectasis or pneumonia. There is no pleural effusion, pneumothorax, or pulmonary vascular congestion. The heart is normal in size. The bones are intact. A fusion plate is seen in the lower cervical spine. XR/XR chest 1V IMPRESSION: Patchy densities at the lung bases which may represent atelectasis or pneumonia. Electronically signed by: Jose Blount MD 12/09/2024 11:05 AM EDT
[2024-12-09 09:42] VITALS: BP 126/84; PULSE 98; O2SAT 99
[2024-12-09 09:45] VITALS: BP 120/90; PULSE 82; RESP 15; TEMP 36.5; O2SAT 94; BMI 34.1
--- NOTE | 2024-12-09 10:10 | ECG_ITS ---
Test Reason : sob Blood Pressure : */* mmHG Vent. Rate : 83 BPM Atrial Rate : 83 BPM P-R Int : 164 ms QRS Dur : 90 ms QT Int : 392 ms P-R-T Axes : 24 -6 9 degrees QTcB Int : 460 ms Normal sinus rhythm Nonspecific T wave abnormality Abnormal ECG When compared with ECG of 02-Dec-2024 15:12, No significant change was found Referred By: Jennifer Lopez Electronically Signed By: GLADIS COSTA MD
--- NOTE | 2024-12-09 10:10 | ED.SOB ---
HPI - SOB/Dyspnea General Chief Complaint: Dyspnea Stated Complaint: Dif breathing/ SOB hx of pnemonia per ems Time Seen by Provider: 12/09/24 09:40 History of Present Illness HPI Narrative: Patient is a 54-year-old female had a history of pneumonia in the last month. Was on multiple antibiotics including azithromycin cefuroxime , doxycycline, Levaquin presented today with having still coughing upper respiratory symptoms generalized malaise. Related Data Home Medications ?Medication ?Instructions ?Recorded ?Confirmed bupropion HCl 150 mg tablet,12 hr 150 mg PO DAILY@0800 11/18/24 12/02/24 sustained-release clonazepam 1 mg tablet 1 mg PO TID@0800,1400,199911/18/24 12/02/24 dextroamphetamine-amphetamine 10 1 tab PO TID@0800,1200,1600 11/18/24 12/02/24 mg tablet gabapentin 300 mg capsule 300 mg PO QID 11/18/24 12/02/24 levothyroxine 100 mcg tablet 100 mcg PO DAILY@0600 11/18/24 12/02/24 lithium carbonate 300 mg capsule 300 mg PO BID@0800,199911/18/24 12/02/24 melatonin 5 mg tablet 10 mg PO BEDTIME PRN Sleep 11/18/24 12/02/24 omeprazole 20 mg tablet,delayed 20 mg PO BID@0630,1630 11/18/24 12/02/24 release albuterol sulfate 90 mcg/actuation 2 puff inhalation Q3-4H 12/02/24 12/02/24 aerosol inhaler (Ventolin HFA) Previous Rx's ?Medication ?Instructions ?Recorded azithromycin 500 mg tablet 500 mg PO DAILY 5 days #5 tabs 12/05/24 cefuroxime axetil 500 mg tablet 500 mg PO BID #10 tabs 12/05/24 prednisone 20 mg tablet 40 mg (2 x 20 mg) PO DAILY #10 tabs 12/05/24 Allergies Allergy/AdvReac Type Severity Reaction Status Date / Time topiramate [From Topamax] Allergy Unknown Verified 12/09/24 09:48 trazodone Allergy Swelling Verified 12/09/24 09:48 Review of Systems Review of Systems: Positive shortness of breath positive coughing Yes all other systems are reviewed and are negative PMFSH Past Medical History Attestation statement: The following information was validated with the patient. Medical History Pneumonitis Pulmonary nodules Type 2 diabetes mellitus without complications GERD (gastroesophageal reflux disease) ADHD Hypothyroidism Bipolar 1 disorder Social History Social History Household Members: None Housing: Other Housing Other:: retirement [facility] Do you presently have visiting nurse or other home services: No Patient Tobacco Use Status: Never used Tobacco e-Cigarette/Vaping Use: Never Used Advance Directives: No Advance Directives Information Provided: Yes service: No Physical Exam Vital Signs: Vital Signs: Last Vital Signs Temp 97.7 F 12/09/24 09:45 Pulse 76 12/09/24 10:25 Resp 16 12/09/24 10:25 BP 120/90 H 12/09/24 09:45 Pulse Ox 94 12/09/24 09:45 O2 Del Method Room Air 12/09/24 09:45 BMI result Body Mass Index 34.1 Medications Administered Discontinued Medications Generic Name Dose Route Start Last Admin Trade Name Freq PRN Reason Stop Dose Admin Albuterol Sulfate 2.5 mg/ 0 mg 12/09/24 10:09 12/09/24 10:25 Albuterol/Ipratropium 3 ml INHALE 12/09/24 10:10 5 dose ONCE ONE Administration Sodium Chloride 1,000 mls @ 999 mls/hr 12/09/24 10:15 12/09/24 10:42 Ns IV 12/09/24 11:15 999 mls/hr .Q1H1M MICHAEL Administration Medical Decision Making Medical Decision Making MDM Narrative: From her inpatient note 54-year-old female with a past medical history significant for hypothyroid, GERD, ADHD, bipolar, type 2 diabetes on Ozempic, and history substance use disorder, sober x9 months, currently residing in a retirement, who presented to the ED due to weakness, shortness of breath, chest discomfort, dry cough, nausea, chills and tactile fever. She was admitted for 25 for pneumonia with sepsis and improved upon discharge. The patient reports about 1 week later she was feeling sick again and went to urgent care and was diagnosed with persistent right-sided pneumonia and prescribed Levaquin. Patient was admitted for acute hypoxic respiratory failure due to pneumonia versus pneumonitis. Was initially treated with vancomycin and Zosyn, MRSA swab was negative so vancomycin was discontinued. Was given prednisone. Was seen by Pulmonary who felt GLP 1 likely contributing although patient feels that this does not line up chronologically. Patient is feeling much better and is on room air will be discharged on 5 more days of prednisone, Ceftin, azithromycin. Patient was just recently discharged on the 12th at that time was given additional Ceftin additional azithromycin which she finished. She claims compliance with her medication. Is on steroids. No vomiting but feels more short of breath again. Came to the ED for help. Patient was seen by Pulmonary when she was admitted. Thought it may be secondary to aspiration pneumonitis. Dot may be related to the GLP 1 use. Patient was given steroid. Given treatment with moderate results. Chest x-ray showed a question infiltrate by my interpretation. D-dimer was negative there is no evidence for pulmonary emboli. Patient to be admitted as when we ambulate the patient her oxygen saturation dropped. Hospitalist team contacted. Differential Diagnosis Differential Diagnoses: The differential diagnosis associated with the presentation includes Pneumonia, PE, congestive heart failure, asthma/COPD Admission/Observation Consideration of admission/observation: Escalation of care including admission/observation considered Consult Healthcare Provider Management of the patient was discussed with: Hospitalist (Will consult on the case and admit patient) Lab Data MDM Lab Attestation statement: I reviewed the patient's lab results. 12/09/24 10:27 12/09/24 10:27 Labs: Lab Results 12/09/24 Range/Units 10:27 WBC 13.1 H (4.8-10.8) X10*3/uL RBC 4.48 (4.20-5.50) X10*6/uL Hgb 12.7 (12.0-16.0) g/dl Hct 40.2 (37.0-47.0) % MCV 89.7 (80.0-98.0) fL MCH 28.3 (27.0-33.0) pg MCHC 31.6 (31.0-35.0) g/dl RDW 13.7 (11.0-16.0) % Plt Count 385 (160-400) X10*3/uL MPV 9.6 (9.4-12.3) fL Immature Gran % (Auto) 0.3 (0.0-0.4) % Neut % (Auto) 61.2 (45-73) % Lymph % (Auto) 27.5 (20-40) % [place] % (Auto) 5.1 (2-11) % Eos % (Auto) 5.4 H (0-4) % Baso % (Auto) 0.5 (0-2) % Lymph # (Auto) 3.6 (1.2-4.9) X10*3/uL [place] # (Auto) 0.7 (0.1-1.2) X10*3/uL Eos # (Auto) 0.7 H (0.0-0.4) X10*3/uL Baso # (Auto) 0.1 (0.0-0.2) X10*3/uL Abs Immat Gran (auto) 0.04 H (0.00-0.03) X10*3/uL Absolute Neuts (auto) 8.0 (2.0-8.3) x10*3/uL Absolute Nucleated RBC 0.000 (0.0-0.012) X10*3/uL Nucleated RBC % (auto) 0.0 (0.0-0.2) /100WBC D-Dimer High Sensitivty < 150 NG/ML Sodium 140 (135-145) mmol/L Potassium 3.7 (3.3-5.1) mmol/L Chloride 108 (96-108) mmol/L Carbon Dioxide 25 (22-29) mmol/L Anion Gap 11 L (12-20) BUN 9 (9-16) mg/dL Creatinine 0.78 (0.5-1.4) mg/dL Estim Creat Clear Calc 99.5 Estimated GFR > 60 Random Glucose 97 (60-115) mg/dL Calcium 8.9 (8.4-10.2) mg/dL Troponin I High Sens < 2.7 (<3.5-17.0) ng/L B-Natriuretic Peptide < 10 (<100) pg/mL Influenza Type A (PCR) NEGATIVE (Negative) Influenza Type B (PCR) NEGATIVE (Negative) RSV RNA Qual (PCR) NEGATIVE (Negative) SARS-CoV-2 RNA (RT-PCR) NEGATIVE (Negative) Independent Interpretation I performed an independent interpretation of an: EKG (My interpretation patient's EKG showed a sinus rhythm heart rate is 80 OR QRS QTC normal there is diffuse T-wave flattening noted.) Radiology Impression Discussion of test interpretation with radiology: I have reviewed the radiologist's reading. External Record Review External record reviewed: Inpatient record Prior pulmonary consult Social Determinants Patient?s care significantly limited by Social Determinants of Health including: Problems related to primary support group Core Measures AMI core measures followed: No Discharge Plan Discharge Clinical Impression: Pneumonitis Patient Disposition: Home, Self-Care
[2024-12-09 10:25] VITALS: PULSE 76; RESP 16; O2SAT 96
[2024-12-09] MEDS: Albuterol Sulfate 2.5 MG, Albuterol/Iprat 2.5/0.5MG 3 ML 3 ML INHALE (10:25)
--- OUTSIDE RECORDS SUMMARY | 2024-12-09 10:29 | XMS_ITS | Encounter Summary ---
Author Organization [employer] Address [address] [place] [address] Care Team Providers Care Director Personal Name Role Phone Leah Lewis JUVENTINO Primary Care Provider [phone] Encounter Details Date Type Department Care Team (Late st Contact Info) Description 12/08/2024 Telephone [facility] [address] [place] [address] Yuli Goodman PA-C [address] [place] [address] Social History Tobacco Use Types Packs/Day Years [...] Description 12/26/2024 12:40 PM EDT Office Visit [address] [address] Leah Lewis FNP [address] [place] [address] 10/09/2025 1:00 PM EDT Office Visit [address] [address] Leah Lewis FNP [address] [place] [phone] documented as of this encounter Visit Diagnoses Not on filedocumented in this encounter Care Teams Director Personal Relationship Specialty Start Date End Date Leah Lewis FNP [address] [place] [phone] PCP - General Family Medicine 03/11/24 documented as of this encounter
--- OUTSIDE RECORDS SUMMARY | 2024-12-09 10:29 | XMS_ITS | Encounter Summary ---
Author Organization [employer] Address [address] [place] [address] Care Team Providers Care Budget Examiner Name Role Phone Leah Lewis Primary Care Provider [phone] Encounter Details Date Type Department Care Team (Late st Contact Info) Description 08/01/2024 Telephone [facility] [address] [place] [address] Leah Lewis FNP [address] [place] [address] Social History Tobacco Use Types [...] 10:52 AM EST Processed and faxed Auth #[id number] Valid 08/08/24-08/08/25 Visits: 6 * Telephone Encounter - Samantha Bishop - 08/01/2024 2:00 PM EST Verified Insurance: Yes Referral Office: Dr Abebe in [place] Diagnosis Code: ear & deviated septum Number of Visits Needed:6 NPI# of Facility: NPI# of Provider being referred to: Phone #: Fax #: documented in this encounter Plan of Treatment Upcoming Encounters Date Type Department Care Team (Late st Contact Info) Description 12/26/2024 12:40 PM EDT Office Visit [address] [address] Leah Lewis FNP [address] [place] [phone] 10/09/2025 1:00 PM EDT Office Visit [address] [address] Leah Lewis FNP [address] [place] [address] documented as of this encounter Visit Diagnoses Not on filedocumented in this encounter Care Teams Budget Examiner Relationship Specialty Start Date End Date Leah Lewis FNP [address] [place] [address] PCP - General Family Medicine 03/11/24 documented as of this encounter
--- OUTSIDE RECORDS SUMMARY | 2024-12-09 10:29 | XMS_ITS | Encounter Summary ---
Author Organization [employer] Address [address] [place] [address] Care Team Providers Care Experimental Assembler Name Role Phone Leah Lewis Primary Care Provider [phone] Encounter Details Date Type Department Care Team (Late st Contact Info) Description 09/28/2024 Telephone [facility] [address] [phone] Leah Lewis FNP [address] [place] [address] Social History Tobacco Use Types Packs/Day Years [...] Description 12/26/2024 12:40 PM EDT Office Visit [address] [address] Leah Lewis FNP [address] [place] [address] 10/09/2025 1:00 PM EDT Office Visit [address] [address] Leah Lewis FNP [address] [place] [phone] documented as of this encounter Visit Diagnoses Not on filedocumented in this encounter Care Teams Experimental Assembler Relationship Specialty Start Date End Date Leah Lewis FNP NPI: [id number] [place] [id number] PCP - General Family Medicine 03/11/24 documented as of this encounter
--- OUTSIDE RECORDS SUMMARY | 2024-12-09 10:29 | XMS_ITS | Encounter Summary ---
Author Organization [employer] Address [address] [place] [address] Care Team Providers Care Director Video Name Role Phone Leah Lewis Primary Care Provider [phone] Encounter Details Date Type Department Care Team (Late st Contact Info) Description 06/02/2024 [facility] [address] [place] [phone] Leah Lewis FNP [address] [place], [place] [phone] Social History Tobacco Use Types Packs/Day Years [...] 12/26/2024 12:40 PM EDT Office Visit [address] [address] Leah Lewis FNP [address] [place] [address] 10/09/2025 1:00 PM EDT Office Visit [address] [address] eLah Lewis FNP [address] [place] [phone] documented as of this encounter Visit Diagnoses Not on filedocumented in this encounter Care Teams Director Video Relationship Specialty Start Date End Date Leah Lewis FNP [address] [place] [address] PCP - General Family Medicine 03/11/24 documented as of this encounter
--- OUTSIDE RECORDS SUMMARY | 2024-12-09 10:29 | XMS_ITS | Data Portability ---
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 She has noted recently her hearing is dropped off and is not responding to antibiotics of recent. 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 Has not gotten better unfortunately with the prednisone. Thought there was slight improvement initially but it tends to recur quickly additionally she is complaining about nasal obstruction Wallace Lowry DO [address] [place], [address], [facility] 08/30/2024 14:26:44 10/06/2024 text/html The patient presents [...] able to review. Wallace Lowry DO [address] [facility], [address], [facility] 10/06/2024 13:51:09 10/18/2024 text/html Patient seen in follow-up for her nose and her ears. She has done well. Wallace Lowry DO [address] [place], [address], [facility] 10/18/2024 11:22:12 OBGyn Episode No OBEpisode recorded.
--- OUTSIDE RECORDS SUMMARY | 2024-12-09 10:30 | XMS_ITS | Encounter Summary ---
Author Organization [employer] Address [address] [facility] 7t [place] [address] Care Team Providers Care Grease Worker Name Role Phone Leah Lewis Primary Care Provider [phone] Encounter Details Date Type Department Care Team (Late st Contact Info) Description 05/31/2024 Telephone [facility] [address] [place] [address] Leah Lewis FNP [address] [place] [address] Social History Tobacco Use Types [...] Miscellaneous Notes * Telephone Encounter - JUVENTINO Gonzlaez - 06/02/2024 2:41 PM EST duplicate * [...] at night is working fine. Please advise. [phone] documented in this encounter Plan of Treatment Upcoming Encounters Date Type Department Care Team (Late st Contact Info) Description 12/26/2024 12:40 PM EDT Office Visit [address] [address] Leah Lewis FNP [address] [place] [address] 10/09/2025 1:00 PM EDT Office Visit [address] [address] Leah Lewis FNP [address] [place] [address] documented as of this encounter Visit Diagnoses Not on filedocumented in this encounter Care Teams Grease Worker Relationship Specialty Start Date End Date Leah Lewis FNP [address] [place] [address] PCP - General Family Medicine 03/11/24 documented as of this encounter
--- OUTSIDE RECORDS SUMMARY | 2024-12-09 10:30 | XMS_ITS | Encounter Summary ---
Author Organization [employer] Address [address] [facility] 7t [place] [address] Care Team Providers Care Prepress Operator Name Role Phone Leah Lewis JUVENTINO Primary Care Provider [phone] Reason for Referral * Imaging (Routine) - Pending Review Specialty Diagnoses / Procedures Referred By Mely hayden Referred To Contact Radiology Diagnoses Pneumonia due to infectious organism, unspecified laterality, unspecified part of lung Procedures CT Chest w/ Contrast Yuli Goodman PA-C [address] [place] [address] Phone: tel: fax: Referral ID Status Reason Start Date Expiration Date V isits Requested Visits Authorized [id number] Pending Review 12/08/2024 12/08/2025 1 1 * Consultation (Urgent) - Authorized Specialty Diagnoses / Procedures Referred By Mely hayden Referred To Contact Speech Pathology Diagnoses Pneumonia due to infectious organism, unspecified laterality, unspecified part of lung Aspiration into airway, initial encounter Yuli Goodman PA-C [address] [place] [address] Phone: tel: fax: [facility] [address] [place] [address] Dr. Suhail Farr [place] Phone: tel: fax: Referral ID Status Reason Start Date Expiration Date Visits Requested Visits Authorized [id number] Authorized Specialty Services Required 12/09/2024 12/09/2025 6 6 * (Routine) - Pending Review Specialty Diagnoses / Procedures Referred By Mely t Referred To Contact Family Medicine Diagnoses Transportation insecurity Yuli Goodman PA-C [address] [place] [address] Phone: tel: fax: [facility] [address] [facility] [address] [place] [address] Phone: tel: fax: Referral ID Status Reason Start Date Expiration Date V isits Requested Visits Authorized [id number] Pending Review 12/08/2024 12/08/2025 1 1 Reason for Visit * Reason Comments Follow-up Follow[facility]up from [facility] admissions. Encounter Details Date Type Department Care Team (Late st Contact Info) Description 12/08/2024 11:00 AM EDT Office Visit [address] [address] Yuli Goodman PA-C [address] [place] [address] Pneumonia due to infectious organism, unspecified laterality, unspecified part of lung (Primary Dx); Aspiration into airway, initial encounter; Transportation insecurity; Dyspnea, unspecified type Social History Tobacco Use Types Packs/Day Years [...] PM EDT documented as of this encounter Last Filed Vital Signs Vital Sign Reading Time Taken Comments Blood Pressure 111/76 12/08/2024 10:41 AM EDT Pulse 81 12/08/2024 10:41 AM EDT Temperature - - Respiratory Rate - - Oxygen Saturation 96% 12/08/2024 10:41 AM EDT Inhaled Oxygen Concentration - - Weight 99.8 kg (220 lb) 12/08/2024 10:41 AM EDT Height - - Body Mass Index 33.93 11/01/2024 12:57 PM EDT documented in this encounter Progress Notes * Yuli Goodman PA-C - 12/08/2024 11:00 AM EDT Chief Complaint Patient presents with Follow-up Follow-up from hospital admissions. History of Present Illness Ayesha Ardon, a 54-year-old female, presents for hospital follow up. Patient was hospitalized from: At [facility] 12/02- 12/05 Diagnosed with: Numerous nodular densities of the right lung, hypoxia. Hospital course included: Treatment with IV vancomycin, Zosyn, prednisone. Pulm consult suspecting GLP1 ra contributory to presentation. Discharged on: azithromycin, ceftin, prednisone Recommended follow ups include: Swallow study, repeat chest CT one month Current status is: Improved but with ongoing shortness of breath. Objective Vitals BP 111/76 (BP Location: Left arm, Patient Position: Sitting, BP Cuff Size: Adult) Pulse 81 Wt 220 lb (99.8 kg) SpO2 96% BMI 33.93 kg/m?? Physical Exam Constitutional: Appearance: Normal appearance. HENT: Head: Normocephalic and atraumatic. Nose: Nose normal. Eyes: Extraocular Movements: Extraocular movements intact. Cardiovascular: Rate and Rhythm: Normal rate and regular rhythm. Heart sounds: Normal heart sounds. Pulmonary: Effort: Pulmonary effort is normal. Breath sounds: Examination of the right-middle field reveals decreased breath sounds. Examination of the right-lower field reveals decreased breath sounds. Decreased breath sounds present. Musculoskeletal: General: Normal range of motion. Cervical back: Normal range of motion. Skin: General: Skin is warm and dry. Neurological: General: No focal deficit present. Mental Status: She is alert. Psychiatric: Mood and Affect: Mood normal. Behavior: Behavior normal. Assessment/Plan Pneumonia due to infectious organism, unspecified laterality, unspecified part of lung: - Treated for bacterial pneumonia and sepsis. Ongoing dyspnea and difficulty taking a full breath. - Hospital notes reviewed. Place referral to outpatient speech for swallow study, order repeat CT in 1 month. - Rx nebulizer. Aspiration into airway, initial encounter: - Possible aspiration as cause of pulmonary condition. - Further evaluation with swallow study recommended. - Consider discontinue GLP1. Transportation insecurity: - Mentioned difficulty with transportation. - Referral to a community health worker to assist with transportation needs. No follow-ups on file. Future Appointments Date Time Provider Department Center 12/26/2024 12:40 PM JUVENTINO Awad [facility] 10/09/2025 1:00 PM JUVENTINO Awad [facility] This visit documentation was prepared using voice-enabled artificial intelligence software (Ceracclinical notes). documented in this encounter Plan of Treatment Upcoming Encounters Date Type Department Care Team (Late st Contact Info) Description 12/26/2024 12:40 PM EDT Office Visit [address] [address] Leah Lewis FNP [address] [place] [address] 10/09/2025 1:00 PM EDT Office Visit [address] [address] Leah Lewis FNP [address] [place] [address] Scheduled Orders Name Type Priority Associated Diagnoses Orde r Schedule CT Chest w/ Contrast Imaging Routine Pneumonia due to infectious organism, unspecified laterality, unspecified part of lung Expected: 01/03/2025 (Approximate), Expires: 12/08/2025 Scheduled Referrals Name Type Priority Associated Diagnoses Orde r Schedule Referral to Community Resource Coordination Outpatient Referral Routine Transportation insecurity Ordered: 12/08/2024 Referral to Speech Therapy Outpatient Referral Urgent Pneumonia due to infectious organism, unspecified laterality, unspecified part of lung Aspiration into airway, initial encounter Expected: 12/08/2024 (Approximate), Expires: 12/08/2025 documented as of this encounter Visit Diagnoses Diagnosis Pneumonia due to infectious organism, unspecified laterality, unspecified part of lung- Primary Aspiration into airway, initial encounter Transportation insecurity Dyspnea, unspecified type documented in this encounter Care Teams Prepress Operator Relationship Specialty Start Date End Date Leah Lewis FNP [address] [place] [address] PCP - General Family Medicine 03/11/24 documented as of this encounter
--- OUTSIDE RECORDS SUMMARY | 2024-12-09 10:30 | XMS_ITS | Encounter Summary ---
Author Organization [employer] Address [address] [facility] 7t [place] [address] Care Team Providers Care Rn Licensed Practical Name Role Phone Leah Lewis Primary Care Provider [phone] Encounter Details Date Type Department Care Team (Late st Contact Info) Description 12/05/2024 Telephone [facility] [address] [place] [address] Leah Lewis FNP [address] [place] [address] Social History Tobacco Use Types [...] * Telephone Encounter - Ness Joseph - 12/05/2024 1:11 PM EDT PAtient has been in hosp twice for pneum just got out today [facility] was there for 4 days appt for 12/08 at 11Am documented in this encounter Plan of Treatment Upcoming Encounters Date Type Department Care Team (Late st Contact Info) Description 12/26/2024 12:40 PM EDT Office Visit [address] [address] Leah Lewis FNP [address] [place] [address] 10/09/2025 1:00 PM EDT Office Visit [address] [address] Leah Lewis FNP [address] [place] [address] documented as of this encounter Visit Diagnoses Not on filedocumented in this encounter Care Teams Rn Licensed Practical Relationship Specialty Start Date End Date Leah Lewis FNP [address] [place] [address] PCP - General Family Medicine 03/11/24 documented as of this encounter
--- OUTSIDE RECORDS SUMMARY | 2024-12-09 10:30 | XMS_ITS | Encounter Summary ---
Author Organization [employer] Address [address] [facility] 7t [place] [address] Care Team Providers Care Pathological Technician Name Role Phone Leah Lewis Primary Care Provider [phone] Encounter Details Date Type Department Care Team (Late st Contact Info) Description 11/30/2024 Telephone [facility] [address] [place] [address] Leah Lewis FNP [address] [place] [address] Social History Tobacco Use Types [...] Description 12/26/2024 12:40 PM EDT Office Visit [address] [address] Leah Lewis FNP [address] [place] [address] 10/09/2025 1:00 PM EDT Office Visit [address] [address] Leah Lewis FNP [address] [place] [address] documented as of this encounter Visit Diagnoses Not on filedocumented in this encounter Care Teams Pathological Technician Relationship Specialty Start Date End Date Leah Lewis FNP [address] [place] [address] PCP - General Family Medicine 03/11/24 documented as of this encounter
--- OUTSIDE RECORDS SUMMARY | 2024-12-09 10:30 | XMS_ITS | Encounter Summary ---
Author Organization [employer] Address [address] [facility] 7t [place] [address] Care Team Providers Care Vegetables Cook Name Role Phone Leah Lewis Primary Care Provider [phone] Encounter Details Date Type Department Care Team (Late st Contact Info) Description 05/13/2024 Telephone [facility] [address] [place] [address] Leah Lewis FNP [address] [place] [address] Social History Tobacco Use Types [...] 2:51 PM EDT Faxed order and let [facility] know. * Telephone Encounter - Taylor Wellington MA - 05/13/2024 2:49 PM EDT I will fax that over right now * Telephone Encounter - Samantha Bishop - 05/13/2024 2:42 PM EDT Was told to go get a back xray. Had several issues with her back. Please advise, please fax the order to [phone]. Patient is there now, order is referenced in the office notes from 05/10. documented in this encounter Plan of Treatment Upcoming Encounters Date Type Department Care Team (Late st Contact Info) Description 12/26/2024 12:40 PM EDT Office Visit [address] [address] Leah Lewis FNP [address] [place] [address] 10/09/2025 1:00 PM EDT Office Visit [address] [address] Leah Lewis FNP [address] [place] [address] documented as of this encounter Visit Diagnoses Not on filedocumented in this encounter Care Teams Vegetables Cook Relationship Specialty Start Date End Date Leah Lewis FNP [address] [place] [address] PCP - General Family Medicine 03/11/24 documented as of this encounter
--- OUTSIDE RECORDS SUMMARY | 2024-12-09 10:30 | XMS_ITS | Encounter Summary ---
Author Organization [employer] Address [address] [facility] [address] 7[address] [place] [address] Care Team Providers Care Package Dyer Name Role Phone Leah Lewis Primary Care Provider [phone] Encounter Details Date Type Department Care Team (Late st Contact Info) Description 10/05/2024 Telephone [facility] [address] [address] Leah Lewis FNP [address] [place] [address] Social History Tobacco Use Types Packs/Day Years [...] 12/26/2024 12:40 PM EDT Office Visit [address] [address] Leah Lewis FNP [address] [place] [address] 10/09/2025 1:00 PM EDT Office Visit [address] [address] Leah Lewis FNP [address] [place] [address] documented as of this encounter Visit Diagnoses Not on filedocumented in this encounter Care Teams Package Dyer Relationship Specialty Start Date End Date Leah Lewis FNP [address] [place] [address] PCP - General Family Medicine 03/11/24 documented as of this encounter
--- OUTSIDE RECORDS SUMMARY | 2024-12-09 10:30 | XMS_ITS | Encounter Summary ---
Author Organization [employer] Address [address] [facility] [address] 7t [place] [address] Care Team Providers Care Chair Mechanic Name Role Phone Leah Lewis Primary Care Provider [phone] Encounter Details Date Type Department Care Team (Late st Contact Info) Description 12/08/[address] [address] Leah Lewis FNP [address] [place] [address] Severe obesity due to excess calories with serious comorbidity and body mass index (BMI) 120% of 95th percentile to less than 140% of 95th percentile for age in pediatric patient (CMS/HCC) Social History Tobacco Use Types Packs/Day Years [...] encounter Miscellaneous Notes * Telephone Encounter - Sandra Alaniz MA - 12/08/2024 11:57 AM EDT PCP: JUVENTINO Awad Last in-person office visit: 12/08/2024 Yuli Goodman PA-C Lab Results Component Value Date BUN 14 10/07/2024 CREATININE 0.91 10/07/2024 HGBA1C 6.2 (H) 10/07/2024 K 4.5 10/07/2024 TSH 107.27 (H) 10/07/2024 Assessment: [x] Protocol passed [] Lab due [] Appointment due Plan: [x] Please refill for 30 days [] Lab [] BMP [] TSH [] A1C [] Appointment due: Future Appointments Date Time Provider Department Center 12/26/2024 12:40 PM JUVENTINO Awad [facility] 10/09/2025 1:00 PM JUVENTINO Awad [facility] Comments: * Telephone Encounter - Ness Riojas - 12/08/2024 11:36 AM EDT Prescribing Provider: Medication Name: Terzepatide/Zepbound Dosage: 2.5 MG injector pen 5 Days or More Supply: No Pharmacy: [facility] - [place], [place] - [address] [place] [address] P [facility] [address] [facility] [place], [place] - [address] [facility] [address] documented in this encounter Plan of Treatment Upcoming Encounters Date Type Department Care Team (Late st Contact Info) Description 12/26/2024 12:40 PM EDT Office Visit [address] [address] Leah Lewis FNP [address] [place] [address] 10/09/2025 1:00 PM EDT Office Visit [address] [address] Leah Lewis FNP [address] [place] [address] documented as of this encounter Visit Diagnoses Diagnosis Severe obesity due to excess calories with serious comorbidity and body mass index (BMI) 120% of 95th percentile to less than 140% of 95th percentile for age in pediatric patient (CMS/HCC) documented in this encounter Care Teams Chair Mechanic Relationship Specialty Start Date End Date Leah Lewis FNP [address] [place] [address] PCP - General Family Medicine 03/11/24 documented as of this encounter
--- OUTSIDE RECORDS SUMMARY | 2024-12-09 10:30 | XMS_ITS | Clinical Summary ---
Author Organization [employer] Address [address] [facility] 7t [place] [address] Care Team Providers Care Application Integration Engineer Name Role Phone Leah Lewis Primary Care Provider [phone] Allergies Active Allergy Reactions Criticality Noted Date Comments Topiramate Unknown 05/10/2024 Trazodone Unknown 05/10/2024 Medications Adderall 10 MG tablet Take 10 mg by mouth. Active Wellbutrin SR 150 MG 12 hr tablet Take 150 mg by mouth. 018 Active clonazePAM (KlonoPIN) 1 MG tablet Active lithium 300 MG capsule Take 300 mg by mouth. Active omeprazole OTC (PriLOSEC OTC) 20 MG EC tablet Take 1 tablet (20 mg) by mouth 2 times daily. Do not crush, chew, or split. 84 tablet 11 024 2024 Active acetaminophen (Tylenol) 500 MG tablet Take 2 tablets (1,000 mg) by mouth every 6 (six) hours if needed for moderate pain. 90 tablet Active gabapentin (Neurontin) 300 MG capsuleIndication s:Low back pain at multiple sites Take 1 capsule (300 mg) by mouth if needed in the morning, at noon, in the evening, and at bedtime (prn). 90 capsule 11 025 2025 Active levothyroxine (Synthroid) 125 MCG tabletIndications :Other specified hypothyroidism Take 1 tablet (125 mcg) by mouth before breakfast. 30 tablet 1 025 2025 Active Tirzepatide-Weigh t Management (Zepbound) 2.5 MG/0.5ML solution auto-injectorIndi cations:Obesity Inject 0.5 mL (2.5 mg) under the skin every 7 (seven) days for 28 days. 2 mL 025 2024 Active azithromycin (Zithromax) 500 MG tablet TAKE 1 TABLET BY MOUTH EVERY DAY X5DAYS Active cefuroxime (Ceftin) 500 MG tablet Take 1 tablet by mouth 2 times daily. Active predniSONE (Deltasone) 20 MG tablet Take 2 tablets by mouth Once per day. Active ipratropium-albut rick (Duo-Neb) 0.5-2.5 mg/3 mL nebulizer solutionIndicatio ns:Dyspnea, unspecified type Take 3 mL by nebulization every 6 (six) hours. 180 mL 2025 Active phentermine 15 MG capsuleIndication s:Class 1 obesity Take 1 capsule (15 mg) by mouth before breakfast. 30 capsule 2024 Discontinued(S hiram effects) Tirzepatide-Weigh t Management (Zepbound) 2.5 MG/0.5ML solution auto-injectorIndi cations:Obesity Inject 0.5 mL (2.5 mg) under the skin every 7 (seven) days for 28 days. 2 mL 025 2024 Discontinued(R eorder (will not trigger notification to Pharmacy)) Tirzepatide-Weigh t Management (Zepbound) 2.5 MG/0.5ML solution auto-injectorIndi cations:Obesity Inject 0.5 mL (2.5 mg) under the skin every 7 (seven) days for 28 days. 2 mL 025 2024 Discontinued(R eorder (will not trigger notification to [...] Encounters Date Type Department Care Team Description 12/08/2024 3:30 PM EDT Community Care [facility] [address] [address] Danielle Mendez 12/08/2024 11:00 AM EDT Office Visit [address] [address] Yuli Goodman PA-C Pneumonia due to infectious organism, unspecified laterality, unspecified part of lung (Primary Dx); Aspiration into airway, initial encounter; Transportation insecurity; Dyspnea, unspecified type 12/08/[address] [address] Yuli Goodman PA-C 12/08/[address] [phone] Leah Lewis FNP 12/08/[address] [address] Leah Lewis, JUVENTINO Severe obesity due to excess calories with serious comorbidity and body mass index (BMI) 120% of 95th percentile to less than 140% of 95th percentile for age in pediatric patient (CMS/[facility]) 12/05/[address] [address] Leah Lewis FNP 11/30/2024 Patient Outreach [address] [address] Lauren Moy LPN 11/30/[address] [phone] Leah Lewis FNP 11/28/[address] [phone] Leah Lewis FNP Severe obesity due to excess calories with serious comorbidity and body mass index (BMI) 120% of 95th percentile to less than 140% of 95th percentile for age in pediatric patient ([facility]) 11/28/[address] [address] Leah Lewis FNP 11/28/[address] [address] Leah Lewis FNP 11/21/2024 9:30 AM EDT Community Care Management [facility] 119 [facility] [address] [place] [address] Ramila Whitten 11/21/[address] [address] Leah Lewis, JUVENTINO Severe obesity due to excess calories with serious comorbidity and body mass index (BMI) 120% of 95th percentile to less than 140% of 95th percentile for age in pediatric patient ([facility]/HCC) 11/21/[address] [address] Leah Lewis FNP 11/16/2024 8:00 AM EDT Community Care Management [facility] [address] [address] Ramila Whitten 11/15/[address] [address] Leah Lewis FNP 11/08/2024 Orders Only [address] [address] Leah Lewis FNP Severe obesity due to excess calories with serious comorbidity and body mass index (BMI) 120% of 95th percentile to less than 140% of 95th percentile for age in pediatric patient ([facility]) (Primary Dx) 11/08/[address] [address] Leah Lewis FNP 11/02/[address] [address] Leah Lewis FNP Class 1 obesity 11/01/2024 1:20 PM EDT Office Visit [address] [address] Leah Lewis FNP Class 1 obesity (Primary Dx); Bilateral low back pain without sciatica, unspecified chronicity; Other specified hypothyroidism; Hypothyroidism due to medication 10/24/[address] [address] Leah Lewis FNP 10/20/[address] [address] Leah Lewis FNP Colon Cancer Screening 10/11/2024 Telephone [facility] [address] [address] Leah Lewis FNP 10/11/2024 Telephone [facility] [address] [facility] [address] [place] [address] Leah Lewis FNP 10/07/2024 7:40 AM EDT Office Visit [address] [address] Leah Lewis FNP Routine general medical examination at a health care facility (Primary Dx); Low back pain at multiple sites; Encounter for screening mammogram for malignant neoplasm of breast; Gastroesophageal reflux disease with esophagitis without hemorrhage; Bipolar 1 disorder ([facility]/HCC) 10/07/2024 Orders Only [address] [address] Leah Lewis FNP Other specified hypothyroidism (Primary Dx) 10/07/[address] [address] Leah Lewis FNP 10/07/2024 Population Health Risk Score [facility] () [address] [phone] Provider, Population Health Generic 10/05/2024 8:00 AM EDT Community Care Management [address] [address] Ramila Whitten 10/05/[address] [address] Leah Lewis FNP 10/04/2024 12:00 PM EDT Community Care Management [address] [address] Danielle Mendez 10/04/[address] [address] Leah Lewis FNP 10/03/2024 8:00 AM EDT Community Care Management [address] [address] Danielle Mendez 09/30/2024 Orders Only [address] [address] Leah Lewis FNP Other specified hypothyroidism (Primary Dx) 09/28/2024 12:05 PM EST Community Care Management [facility] [address] [facility] [address] [place] [address] Danielle Mendez 09/28/2024 Telephone [facility] [address] [facility] [address] [place] [address] Leah Lewis FNP from Last 3 Months Immunizations Immunization Administration Dates Next Due DTaP, Unspecified 02/17/2012 [...] Pulse 81 12/08/2024 10:41 AM EDT Temperature 36.1 ??C (97 ??F) 11/01/2024 12:57 PM EDT Respiratory Rate - - Oxygen Saturation 96% 12/08/2024 10:41 AM EDT Inhaled Oxygen Concentration - - Weight 99.8 kg (220 lb) 12/08/2024 10:41 AM EDT Height 171.5 cm (5' 7.52 ) 11/01/2024 12:57 PM E DT Body Mass Index 33.93 11/01/2024 12:57 PM EDT Plan of Treatment Upcoming Encounters Date Type Department Care Team (Late st Contact Info) Description 12/26/2024 12:40 PM EDT Office Visit [address] [address] Leah Lewis FNP [address] [place] [address] 10/09/2025 1:00 PM EDT Office Visit [address] [address] Leah Lewis FNP [address] [place] [address] Health Maintenance Due Date Last Done Comments [...] Postponed from 03/27 (Patient Refused) Tobacco Screening 12/08/2025 12/08/2024 Lipid Panel 10/07/2029 10/07/2024 DTaP/Tdap/Td Vaccines (3 [...] patient's age to complete this topic Meningococcal B Vaccine Aged Out No l onger eligible based on patient's age to complete [...] EDT Routine general medical examination at a [facility] Bipolar 1 disorder ([facility]) LIPID PANEL, STANDARD Routine 10/07/2024 8:58 AM EDT Routine general medical examination at a [facility] Bipolar 1 disorder ([facility]) LITHIUM Routine 10/07/2024 8:58 AM EDT Routine general medical examination at a [facility] Bipolar 1 disorder ([facility]) CBC WITH AUTO DIFFERENTIAL Routine 10/07/2024 8:58 AM EDT Routine general medical examination at a [facility] Bipolar 1 disorder ([facility]) TSH W/REFLEX TO FT4 Routine 10/07/2024 8 :58 AM EDT Routine general medical examination at a [facility] Bipolar 1 disorder ([facility]) COMPREHENSIVE METABOLIC PANEL Routine 10/07/2024 8:58 AM EDT Routine general medical examination at a [facility] Bipolar 1 disorder ([facility]) from Last 3 Months Results * Referral to ENT (10/18/2024) Leah Lewis [facility] OUTPATIENT REFERRAL ORDERABLES E dited Result - Final * (ABNORMAL) TSH with Reflex to Free T4 (10/07/2024 8:58 AM EDT) TSH w/Reflex to FT4 107.27(H) mIU/L [facility] Comment: ?Reference Range ?> or = 20 Years ??0.40-4.50 ? Ranges ?First trimester ?0.26-2.66 ?Second trimester ?? 0.55-2.73 ?Third trimester ?0.43-2.91 Blood 10/07/2024 8:58 AM EDT 10/07/2024 8:58 AM EDT Narrative [facility] - 10/08/2024 6:37 AM EDT FASTING:NO FASTING: NO us Leah Lewis [employer] LAB BLOOD ORDERABLES Final Resul t [facility] [address], [place] [address] [facility] [address] [place] [address] * (ABNORMAL) CBC auto differential (10/07/2024 8:58 AM EDT) Pathologist [facility] White Blood Cell Count 9.4 3.8 - 10.8 Thousand/ uL [facility] Red Blood Cell Count 4.05 3.80 - 5.10 Million/u L [facility] [employer] [facility] Hemoglobin 12.2 11.7 - 15.5 g/dL [facility] Hematocrit 36.9 35.0 - 45.0 % [facility] [facility] MCV 91.1 80.0 - 100.0 fL [facility] MCH 30.1 27.0 - 33.0 pg [facility] MCHC 33.1 32.0 - 36.0 g/dL [facility] Comment: For adults, a slight decrease in the calculated MCHC value (in the range of 30 to 32 g/dL) is most likely not clinically significant; however, it should be interpreted with caution in correlation with other red cell parameters and the patient's clinical condition. RDW 12.6 11.0 - 15.0 % [facility] Platelet Count 343 140 - 400 Thousand/ uL [facility] MPV 9.7 7.5 - 12.5 fL [facility] Absolute Neutrophils 5,217 1,500 - 7,800 cells/uL [facility] Absolute Lymphocytes 2,961 850 - 3,900 cells/uL [facility] Absolute Monocytes 602 200 - 950 cells/uL [facility] Absolute Eosinophils 536(H) 15 - 500 cells/uL [facility] Absolute Basophils 85 0 - 200 cells/uL [facility] Neutrophils 55.5 % [facility] Lymphocytes 31.5 % [facility] Monocytes 6.4 % [facility] Eosinophils 5.7 % [facility] Basophils 0.9 % [facility] Blood Venous blood specimen / Unknown 10/07/2024 8:58 AM EDT 10/07/2024 8:58 AM EDT Narrative [facility] - 10/08/2024 6:37 AM EDT FASTING:NO FASTING: NO Leah Lewis [facility] LAB BLOOD ORDERABLES Final Resul t Performing Organization Address [facility] de Phone Number [employer] [address] [place] [address], [place] [address] [facility] [address] [place] [phone] * T4, Free (10/07/2024 8:58 AM EDT) T4, Free 0.9 0.8 - 1.8 ng/dL [facility] 10/07/2024 8:58 AM EDT 10/07/2024 8:58 AM EDT Narrative [facility] - 10/08/2024 6:37 AM EDT FASTING:NO FASTING: NO Leah Lewis [facility] LAB BLOOD ORDERABLES Final Resul t Performing Organization Address [facility]/ZIP Co de Phone Number [facility] [address] [place] [address], [place] [address] [facility] [address] [place] [phone] * (ABNORMAL) Hemoglobin A1c (10/07/2024 8:58 AM EDT) Hemoglobin A1c 6.2(H) <5.7 % of total Hgb [facility] Comment: For someone without known diabetes, a [...] AM EDT FASTING:NO FASTING: NO Leah Lewis [facility] LAB BLOOD ORDERABLES Final Resul t Performing Organization Address [facility]/ZIP Co de Phone Number [facility] [address] [place] [phone] [facility] [address] [place] [phone] * Haslet (10/07/2024 8:58 AM EDT) Haslet 0.6 0.6 - 1.2 mmol/L [facility] Blood Venous blood specimen / Unknown 10/07/2024 8:58 AM EDT 10/07/2024 8:58 AM EDT Narrative [facility] - 10/08/2024 6:37 AM EDT FASTING:NO FASTING: NO Leah Lewis [facility] LAB BLOOD ORDERABLES Final Resul t Performing Organization Address City/[facility]/ZIP Co de Phone Number [address], [place] [address] [facility] [address] [place] [phone] * (ABNORMAL) Lipid Panel, Standard (10/07/2024 8:58 AM EDT) Cholesterol, Total 176 <200 mg/dL [facility] HDL Cholesterol 47(L) > OR = 50 mg/dL [facility] Triglycerides 261(H) <150 mg/dL [facility] Comment: If a non-fasting specimen was collected, consider repeat triglyceride testing on a fasting specimen if clinically indicated. Nikkie et al. J. of Clin. Lipidol. 2015;9:129-169. LDL Cholesterol 95 mg/dL [email or web address] Comment: Reference range: <100 Desirable range <100 mg/dL for primary prevention; ?? <70 mg/dL for patients with CHD or diabetic patients with > or = 2 CHD risk factors. LDL-C is now calculated using the Jose Antonio-Tamir calculation, which is a validated novel method providing better accuracy than the Friedewald equation in the estimation of LDL-C. Jose Antonio SS et al. PEE. 2013;310(19): 4584-9094 (http://education.Nag[employer],inc./faq/LLA279) Chol/HDLC Ratio 3.7 <5.0 (calc) [facility] Non-HDL Cholesterol 129 <130 mg/dL [facility] Comment: For patients with diabetes plus 1 major ASCVD risk factor, treating to a non-HDL-C goal of <100 mg/dL (LDL-C of <70 mg/dL) is considered a therapeutic option. Blood Venous blood specimen / Unknown 10/07/2024 8:58 AM EDT 10/07/2024 8:58 AM EDT Narrative [facility] - 10/08/2024 6:37 AM EDT FASTING:NO FASTING: NO us Leah Lewis [facility] LAB BLOOD ORDERABLES Final Resul t [facility] 200 [facility], [place] [address] [facility] [address] [place] [address] * (ABNORMAL) Comprehensive Metabolic Panel (10/07/2024 8:58 AM EDT) Glucose 83 65 - 139 mg/dL [facility] Comment: ? Non-fasting reference interval Urea Nitrogen (BUN) 14 7 - 25 mg/dL [facility] Creatinine, Serum 0.91 0.50 - 1.03 mg/dL [facility] eGFR 75 > OR = 60 mL/min/1. 73m2 [facility] BUN/Creatinine Ratio SEE NOTE: (calc) [facility] Comment: ?? Not Reported: BUN and Creatinine are within ?? reference range. ? Sodium 140 135 - 146 mmol/L [facility] Potassium 4.5 3.5 - 5.3 mmol/L [facility] Chloride 102 98 - 110 mmol/L [facility] Carbon Dioxide 33(H) 20 - 32 mmol/L [facility] Calcium 9.4 8.6 - 10.4 mg/dL [facility] Protein, Total 7.1 6.1 - 8.1 g/dL [facility] Albumin 4.4 3.6 - 5.1 g/dL [facility] Globulin 2.7 1.9 - 3.7 g/dL (calc) [facility] Albumin/Globuli n Ratio 1.6 1.0 - 2.5 (calc) [facility] Bilirubin, Total 0.2 0.2 - 1.2 mg/dL [facility] Alkaline Phosphatase 67 37 - 153 U/L [facility] AST 20 10 - 35 U/L [facility] ALT 27 6 - 29 U/L [facility] Blood Venous blood specimen / Unknown 10/07/2024 8:58 AM EDT 10/07/2024 8:58 AM EDT Narrative [facility] - 10/08/2024 6:37 AM EDT FASTING:NO FASTING: NO Leah [facility] LAB BLOOD ORDERABLES Final Resul t [facility] [address], [place] [address] [facility] [address] [place] [address] from Last 3 Months Insurance [employer] Care Teams Application Integration Engineer Relationship Specialty Start Date End Date Leah Lewis FNP [address] [place] [address] PCP - General Family Medicine 03/11/24
--- OUTSIDE RECORDS SUMMARY | 2024-12-09 10:30 | XMS_ITS | Encounter Summary ---
Author Organization [employer] Address [address] [facility] 7t [place] [address] Care Team Providers Care Help Desk Administrator Name Role Phone Leah Lewis Primary Care Provider [phone] Encounter Details Date Type Department Care Team (Late st Contact Info) Description 10/07/[address] [facility] [address] [place] [address] Leah Lewis FNP [address] [place] [address] Social History Tobacco Use Types [...] in. She said the fax number is [phone], her call back number is [phone] * Telephone Encounter - Lulu Tim - 10/07/2024 1:51 PM EDT Patient was seen by LM this morning , During this visit there gabapentin was increased to 600 mg . Patient needs a note about the increase sent to /2 [facility] . Please fax to [phone] documented in this encounter Plan of Treatment Upcoming Encounters Date Type Department Care Team (Late st Contact Info) Description 12/26/2024 12:40 PM EDT Office Visit [address] [address] Leah Lewis FNP [address] [place] [address] 10/09/2025 1:00 PM EDT Office Visit [address] [address] Leah Lewis FNP [address] [place] [address] documented as of this encounter Visit Diagnoses Not on filedocumented in this encounter Care Teams Help Desk Administrator Relationship Specialty Start Date End Date Leah Lewis FNP [address] [place] [phone] PCP - General Family Medicine 03/11/24 documented as of this encounter
--- OUTSIDE RECORDS SUMMARY | 2024-12-09 10:30 | XMS_ITS | Encounter Summary ---
Author Organization [employer] Address [address] [facility] 7t [place] [address] Care Team Providers Care Mechanic Driver Name Role Phone Leah Lewis Primary Care Provider [phone] Encounter Details Date Type Department Care Team (Late st Contact Info) Description 05/23/2024 Telephone [facility] [address] [place] [address] Leah Lewis FNP [address] [place] [address] Social History Tobacco Use Types [...] pharmacy for her back pain. Please advise. [phone] documented in this encounter Plan of Treatment Upcoming Encounters Date Type Department Care Team (Late st Contact Info) Description 12/26/2024 12:40 PM EDT Office Visit [address] [address] Leah Lewis FNP [address] [place] [address] 10/09/2025 1:00 PM EDT Office Visit [address] [address] Leah Lewis FNP [address] [place] [address] documented as of this encounter Visit Diagnoses Not on filedocumented in this encounter Care Teams Mechanic Driver Relationship Specialty Start Date End Date Leah Lewis FNP [address] [place] [phone] PCP - General Family Medicine 03/11/24 documented as of this encounter
--- OUTSIDE RECORDS SUMMARY | 2024-12-09 10:30 | XMS_ITS | Encounter Summary ---
Author Organization [employer] Address [address] [facility] [address] 7[address] [place] [address] Care Team Providers Care Police Matron Name Role Phone Leah Lewis Primary Care Provider [phone] Encounter Details Date Type Department Care Team (Late st Contact Info) Description 11/15/[address] [address] Leah Lewis FNP [address] [place] [address] Social History Tobacco Use Types Packs/Day Years [...] a PT-1 for a medical appointment. Patient's [facility] ID: [id number] Complete Pickup Address (home): [address] [facility] [address] Alternate pickup address (optional): Patient (Home) Emergency Contact Name and Number (optional): Drop off address (list all locations, including name of facility and care being received): [address] [place] [address] How many visits per month needed: 4 [...] Upcoming Encounters Date Type Department Care Team ([facility] st Contact Info) Description 12/26/2024 12:40 PM EDT Office Visit [address] [place] [address] Leah Lewis FNP [address] [place] [address] 10/09/2025 1:00 PM EDT Office Visit [address] [address] Leah Lewis FNP [address] [place] [address] documented as of this encounter Visit Diagnoses Not on filedocumented in this encounter Care Teams Police Matron Relationship Specialty Start Date End Date Leah Lewis FNP [address] [place] [address] PCP - General Family Medicine 03/11/24 documented as of this encounter
--- OUTSIDE RECORDS SUMMARY | 2024-12-09 10:30 | XMS_ITS | Encounter Summary ---
Author Organization [employer] Address [address] [facility] [address] 7t [place] [address] Care Team Providers Care Panel Coverer Name Role Phone Leah Lewis Primary Care Provider [phone] Encounter Details Date Type Department Care Team (Late st Contact Info) Description 10/11/2024 Telephone [facility] [address] [phone] Leah Lewis FNP [address] [place] [address] Social History Tobacco Use Types Packs/Day Years [...] it again. Her call back number is [phone] * Telephone Encounter - Svetlana Mcleod - 10/13/2024 8:43 AM EDT Faxed note to criminal justice program director. * Telephone Encounter - Ness Joseph - 10/13/2024 8:34 AM EDT Please refax the medication change to [phone] KASEY Ayala criminal justice program director * Telephone Encounter - Ness Joseph - 10/12/2024 4:06 PM EDT Please fax the provider authorization, to her alf ,regarding the increased gabapentin at last Fridays appointment fax # is [phone] PLASE REFAX THEY DID NOT RECIEVE * Telephone Encounter - Svetlana Mcleod - 10/12/2024 8:36 AM EDT Faxed last office note stating new dose of Gabapentin, faxed to Krysten salmon F# [phone]. Calledpt and let her know. * Telephone Encounter - Samantha Bishop - 10/11/2024 4:39 PM EDT Please fax the provider authorization, to her alf ,regarding the increased gabapentin at last Fridays appointment fax # is [phone] * Telephone Encounter - Paul Reyes - 10/11/2024 10:57 AM EDT Patient asking for authorization to take gabapentin (Neurontin) 300 MG 4 times a day documented in this encounter Plan of Treatment Upcoming Encounters Date Type Department Care Team (Late st Contact Info) Description 12/26/2024 12:40 PM EDT Office Visit [address] [address] Leah Lewis FNP [address] [place] [address] 10/09/2025 1:00 PM EDT Office Visit [address] [address] Leah Lewis FNP [address] [place] [address] documented as of this encounter Visit Diagnoses Not on filedocumented in this encounter Care Teams Panel Coverer Relationship Specialty Start Date End Date Leah Lewis FNP [address] [place] [address] PCP - General Family Medicine 03/11/24 documented as of this encounter
--- OUTSIDE RECORDS SUMMARY | 2024-12-09 10:30 | XMS_ITS | Encounter Summary ---
Author Organization [employer] Address [address] [facility] [address] 7[address] [place] [address] Care Team Providers Care Traffic Worker Name Role Phone Leah Lewis Primary Care Provider [phone] Encounter Details Date Type Department Care Team (Late st Contact Info) Description 10/11/2024 Telephone [facility] [address] [phone] Leah Lewis FNP [address] [place] [address] Social History Tobacco Use Types Packs/Day Years [...] Description 12/26/2024 12:40 PM EDT Office Visit [address] [address] Leah Lewis FNP [address] [place] [address] 10/09/2025 1:00 PM EDT Office Visit [address] [address] Leah Lewis FNP [address] [place] [address] documented as of this encounter Visit Diagnoses Not on filedocumented in this encounter Care Teams Traffic Worker Relationship Specialty Start Date End Date Leah Lewis FNP [address] [place] [address] PCP - General Family Medicine 03/11/24 documented as of this encounter
--- OUTSIDE RECORDS SUMMARY | 2024-12-09 10:30 | XMS_ITS | Encounter Summary ---
Author Organization [employer] Address [address] [facility] 7t [place] [address] Care Team Providers Care Betting Agency Manager Name Role Phone Leah Lewis JUVENTINO Primary Care Provider [phone] Reason for Visit * (Routine) - Pending Review Specialty Diagnoses / Procedures Referred By Mely hayden Referred To Contact Family Medicine Diagnoses Transportation insecurity Yuli Goodman PA-C [address] [place] [address] Phone: tel: fax: [facility] [address] [address] Phone: tel: fax: Referral ID Status Reason Start Date Expiration Date V isits Requested Visits Authorized [id number] Pending Review 12/08/2024 12/08/2025 1 1 Encounter Details Date Type Department Care Team ([facility] st Contact Info) Description 12/08/2024 3:30 PM EDT Community Care Management [facility] [address] [phone] Danielle Mendez [address] [place] [phone] Social History Tobacco Use Types Packs/Day Years [...] as of this encounter Progress Notes * Danielle Mendez - 12/08/2024 3:30 PM EDT December 08, 2024 PT-1 requested to: Facility Name/Treating Provider: [facility] Facility Location: [facility] Requested for PT-1 for 12 months with up to 3 visits per month. Patient does not have a wheelchair. Wheelchair type: N/A Patient does not have an o2 tank. Patient does have an escort. Will notify patient once approved. Pt-1 request# [id number] Pt1 was approved-- pt has been notified documented in this encounter Plan of Treatment Upcoming Encounters Date Type Department Care Team (Late st Contact Info) Description 12/26/2024 12:40 PM EDT Office Visit [address] [address] Leah Lewis FNP [address] [place] [address] 10/09/2025 1:00 PM EDT Office Visit [address] [address] Leah Lewis FNP [address] [place] [address] Scheduled Referrals Name Type Priority Associated Diagnoses Order Schedule Referral to [facility] Resource [facility] Outpatient Referral Routine Transportation insecurity Ordered: 12/08/2024 documented as of this encounter Visit Diagnoses Not on filedocumented in this encounter Care Teams Betting Agency Manager Relationship Specialty Start Date End Date Leah Lewis FNP [address] [place] [address] PCP - General Family Medicine 03/11/24 documented as of this encounter
--- OUTSIDE RECORDS SUMMARY | 2024-12-09 10:30 | XMS_ITS | Encounter Summary ---
Author Organization [employer] Address [address] [facility] [address] 7t [place] [address] Care Team Providers Care Right Of Way Manager Name Role Phone Leah Lewis Primary Care Provider [phone] Encounter Details Date Type Department Care Team (Late st Contact Info) Description 11/21/[address] [address] Leah Lewis FNP 102 [place] [address] Social History Tobacco Use Types Packs/Day Years [...] EDT Pt was brought in by our commercial collections driver 20 minutes late. The commercial collections driver said that he wasn't notified about the time of this appointment. documented in this encounter Plan of Treatment Upcoming Encounters Date Type Department Care Team (Late st Contact Info) Description 12/26/2024 12:40 PM EDT Office Visit [address] [address] Leah Lewis FNP [address] [place] [address] 10/09/2025 1:00 PM EDT Office Visit [address] [address] Leah Lewis FNP [address] [place] [address] documented as of this encounter Visit Diagnoses Not on filedocumented in this encounter Care Teams Right Of Way Manager Relationship Specialty Start Date End Date Leah Lewis FNP [address] [place] [address] PCP - General Family Medicine 03/11/24 documented as of this encounter
--- OUTSIDE RECORDS SUMMARY | 2024-12-09 10:30 | XMS_ITS | Encounter Summary ---
Author Organization [employer] Address [address] [facility] [address] 7t [place] [address] Care Team Providers Care Clinical Social Work Therapist Name Role Phone Leah Lewis Primary Care Provider [phone] Encounter Details Date Type Department Care Team (Late st Contact Info) Description 11/08/2024 Orders Only [facility] [address] [place] [phone] Leah Lewis FNP 102 [place], [place] [phone] Severe obesity due to excess calories with [...] Description 12/26/2024 12:40 PM EDT Office Visit [address] [address] Leah Lewis FNP [address] [place] [address] 10/09/2025 1:00 PM EDT Office Visit [address] [address] Leah Lewis FNP [address] [place] [address] documented as of this encounter Visit Diagnoses Diagnosis Severe obesity due to excess calories with serious comorbidity and body mass index (BMI) 120% of 95th percentile to less than 140% of 95th percentile for age in pediatric patient (CMS/HCC)- Primary documented in this encounter Care Teams Clinical Social Work Therapist Relationship Specialty Start Date End Date Leah Lewis FNP [address] [place] [address] PCP - General Family Medicine 03/11/24 documented as of this encounter
--- OUTSIDE RECORDS SUMMARY | 2024-12-09 10:30 | XMS_ITS | Encounter Summary ---
Author Organization [employer] Address 75 [facility] 7t [place] [address] Care Team Providers Care Making Line Worker Name Role Phone Leah Lewis Primary Care Provider [phone] Encounter Details Date Type Department Care Team (Late st Contact Info) Description 12/08/2024 Telephone [facility] 102 [place] [address] Leah Lewis FNP 102 [place] [address] Social History Tobacco Use Types [...] encounter Miscellaneous Notes * Telephone Encounter - Samantha Bishop - 12/08/2024 2:22 PM EDT Ayesha Duglas is requesting a PT-1 for a medical appointment. Patient's [facility] ID: [id number] Complete Pickup Address (home):[address] [place] [address] [place], [place] Alternate pickup address (optional): Patient Emergency Contact Name and Number (optional): Drop off address (list all locations, including name of facility and care being received): [facility]; [facility] in [place], [place] How many visits per month needed: 3 Yes or No: Please Check Boxes Below [...] Upcoming Encounters Date Type Department Care Team ([facility] st Contact Info) Description 12/26/2024 12:40 PM EDT Office Visit Community [address] [address] Leah Lewis FNP 102 [place] [address] 10/09/2025 1:00 PM EDT Office Visit [address] [address] Leah Lewis FNP 102 [place] [address] documented as of this encounter Visit Diagnoses Not on filedocumented in this encounter Care Teams Making Line Worker Relationship Specialty Start Date End Date Leah Lewis FNP [address] [place] [address] PCP - General Family Medicine 03/11/24 documented as of this encounter
--- OUTSIDE RECORDS SUMMARY | 2024-12-09 10:30 | XMS_ITS | Encounter Summary ---
Author Organization [employer] Address 75 [facility] 7t [place] [address] Care Team Providers Care Supervisor Type Photography Name Role Phone Leah Lewis Primary Care Provider [phone] Encounter Details Date Type Department Care Team (Late st Contact Info) Description 11/28/2024 Telephone [facility] 102 [place] [address] Leah Lewis FNP 102 [place] [address] Social History Tobacco Use Types [...] Miscellaneous Notes * Telephone Encounter - Trinity Mcmahon LPN - 11/28/2024 2:48 PM EDT DUPLICATE * Telephone Encounter - Samantha Bishop - 11/28/2024 2:46 PM EDT Was at the er 2 weekends ago for pneumonia, then went to urgent on 11/26. Needs a follow up with lm.Please call [phone] documented in this encounter Plan of Treatment Upcoming Encounters Date Type Department Care Team (Late st Contact Info) Description 12/26/2024 12:40 PM EDT Office Visit [address] [address] Leah Lewis FNP [address] [place] [address] 10/09/2025 1:00 PM EDT Office Visit [address] [address] Leah Lewis FNP [address] [place] [address] documented as of this encounter Visit Diagnoses Not on filedocumented in this encounter Care Teams Supervisor Type Photography Relationship Specialty Start Date End Date Leah Lewis FNP [address] [place] [address] PCP - General Family Medicine 03/11/24 documented as of this encounter
[2024-12-09 10:33] LABS: MANUAL DIFF FLAG NO
[2024-12-09 10:36] LABS: Basophils Absolute Auto 0.1 X10*3/uL (0.0-0.2); Basophils Percent Auto 0.5 % (0-2); Eosinophils Absolute Auto 0.7 X10*3/uL (0.0-0.4); Eosinophils Percent Auto 5.4 % (0-4); Hematocrit 40.2 % (37.0-47.0); Hemoglobin 12.7 g/dl (12.0-16.0); Imm Gran Abs Auto 0.04 X10*3/uL (0.00-0.03); Imm Gran Pct Auto 0.3 % (0.0-0.4); Lymphocytes Absolute Auto 3.6 X10*3/uL (1.2-4.9); Lymphocytes Percent Auto 27.5 % (20-40); Mean Corpuscular HGB Conc 31.6 g/dl (31.0-35.0); Mean Corpuscular Hemoglobin 28.3 pg (27.0-33.0); Mean Corpuscular Volume 89.7 fL (80.0-98.0); Mean Platelet Volume 9.6 fL (9.4-12.3); Monocytes Absolute Auto 0.7 X10*3/uL (0.1-1.2); Monocytes Percent Auto 5.1 % (2-11); Neutrophils Percent Auto 61.2 % (45-73); Platelet Count 385 X10*3/uL (160-400); Red Blood Count 4.48 X10*6/uL (4.20-5.50); Red Cell Distribution Width 13.7 % (11.0-16.0); White Blood Count 13.1 X10*3/uL (4.8-10.8)
[2024-12-09] MEDS: 0.9 % Sodium Chloride 1,000 ML 999 ML IV ×3 (10:42→15:43)
[2024-12-09 10:47] LABS: D Dimer High Sensitivity < 150 NG/ML
[2024-12-09 10:52] LABS: Anion Gap 11 (12-20); Blood Urea Nitrogen 9 mg/dL (9-16); Calcium 8.9 mg/dL (8.4-10.2); Carbon Dioxide 25 mmol/L (22-29); Chloride 108 mmol/L (96-108); Creatinine Clr Calc Pharmacy 99.5; Estimated Glomerular Filt Rate > 60; Glucose Random 97 mg/dL (60-115); Potassium 3.7 mmol/L (3.3-5.1); Sodium 140 mmol/L (135-145)
[2024-12-09 10:58] LABS: B Type Natriuretic Peptide < 10 pg/mL (<100)
[2024-12-09 11:04] LABS: Troponin-I High Sensitivity < 2.7 ng/L (<3.5-17.0)
[2024-12-09 11:25] LABS: Influenza A PCR NEGATIVE (Negative); Influenza B PCR NEGATIVE (Negative); Resp Syncy Virus RNA Qual PCR NEGATIVE (Negative); SARS COV2 PCR INHOUSE NEGATIVE (Negative)
--- NOTE | 2024-12-09 14:04 | PM.IMHP ---
History of Present Illness Date of Service: 12/09/24 Attending physician on admission: Norm Howard Chief Complaint: SOB Pt is a 54-year-old female with a PMH significant for?hypothyroidism, xqx-yfksyfc-phvduuvxe type 2 diabetes on Ozempic hx of substance use disorder silver x9 months, GERD, ADHD, bipolar disorder, and currently residing in a intermediate who presents to the ED from [facility] with?persistent SOB, cough, and generally feeling unwell. This is patient's 3rd admission to the hospital for similar symptoms, initially on 11/18/2024 and more recently on 12/02/2024 after being admitted and treated for acute hypoxic respiratory failure due to pneumonia vs pneumonitis. While admitted pt had pulmonary workup that thought GLP1 was likely contributory to patient's symptoms. Was discharged on 12/05 on prednisone, cefuroxime, and azithromycin x5 days. Reports initially felt much better after being discharged. However yesterday pt began experiencing lightheadedness, dizziness, and SOB again that was not alleviated by home inhalers. That night was awoken from sleep at least twice with prolonged coughing fits that lasted 1-2 hours at a time. This morning pt was noted to be desatting with ambulation and was sent to the ED for further evaluation. Pt also complains of right lower abdominal pain radiating to her back that she reports is new. States her back feels like it has been ?hit by a truck?. Also complains of chest tightness and pressure worsened with deep breathing and cough. Denies polyuria or dysuria. Denies fever, chills, nausea, vomiting. In the ED pt was afebrile and satting at 94% on RA at rest, though desatting to 88 % with ambulation. Labs were significant for leukocytosis 13.1, otherwise grossly unremarkable and around baseline for pt. Stable H&H. D-dimer negative. No significant electrolyte abnormalities. Renal function baseline. Tested negative for flu, COVID, RSV. CXR showed patchy densities at lung bases which may represent atelectasis or pneumonia. EKG demonstrated normal sinus rhythm with nonspecific T-wave inversions in leads III and V1. Pt was treated in the ED with DuoNebs, IVF, and cefepime. Pt is admitted to the hospital for recurrent hypoxia in the setting of possible pneumonia that failed outpatient therapy. Review of Systems Review of Systems: Negative except for that which is stated in the HPI. [facility] Medical History Pneumonitis Pulmonary nodules Type 2 diabetes mellitus without complications GERD (gastroesophageal reflux disease) ADHD Hypothyroidism Bipolar 1 disorder Social History Household Members: None Housing: Other Housing Other:: intermediate Krysten house Do you presently have visiting nurse or other home services: No Patient Tobacco Use Status: Never used Tobacco e-Cigarette/Vaping Use: Never Used Advance Directives: No Advance Directives Information Provided: Yes service: No Meds Allergies Allergy/AdvReac Type Severity Reaction Status Date / Time topiramate [From Topamax] Allergy Unknown Verified 12/09/24 09:48 trazodone Allergy Swelling Verified 12/09/24 09:48 Active Medications: Current Medications Cefepime HCl 1 gm/ Sodium (Chloride) 50 mls @ 100 mls/hr IV ONCE ONE Stop: 12/09/24 14:22 Home Medications ?Medication ?Instructions ?Recorded ?Confirmed ?Last Taken ?Type bupropion HCl 150 mg tablet,12 hr 150 mg PO DAILY@0800 11/18/24 12/09/24 12/09/24 History sustained-release clonazepam 1 mg tablet 1 mg PO TID@0800,1400,199911/18/24 12/09/24 12/09/24 History dextroamphetamine-amphetamine 10 1 tab PO TID@0800,1200,1600 11/18/24 12/09/24 12/09/24 History mg tablet gabapentin 300 mg capsule 300 mg PO QID 11/18/24 12/09/24 12/09/24 History levothyroxine 100 mcg tablet 100 mcg PO DAILY@0600 11/18/24 12/09/24 12/09/24 History lithium carbonate 300 mg capsule 300 mg PO BID@0800,199911/18/24 12/09/24 12/09/24 History melatonin 5 mg tablet 10 mg PO BEDTIME PRN Sleep 11/18/24 12/09/24 12/02/24 History omeprazole 20 mg tablet,delayed 20 mg PO BID@0630,1630 11/18/24 12/09/24 12/09/24 History release albuterol sulfate 90 mcg/actuation 2 puff inhalation Q3-4H PRN 12/02/24 12/09/24 12/02/24 History aerosol inhaler (Ventolin HFA) Shortness Of Breath Or Wheezing acetaminophen 500 mg tablet 1,000 mg PO Q6H PRN Pain 12/09/24 12/09/24 Unknown History tirzepatide (weight loss) 2.5 0.5 mg subcut MO 12/09/24 12/09/24 12/06/24 History mg/0.5 mL subcutaneous solution (Zepbound) Physical Exam Vital Signs and Narrative: Vital Signs: Last Vital Signs Temp 97.7 F 12/09/24 09:45 Pulse 76 12/09/24 10:25 Resp 16 12/09/24 10:25 BP 120/90 H 12/09/24 09:45 Pulse Ox 94 12/09/24 09:45 O2 Del Method Room Air 12/09/24 09:45 BMI result Body Mass Index 34.1 General: AOx3, no acute distress Resp: CTA bilaterally, but with poor inspiratory effort and poor airflow CVS: S1, S2, RRR GI: +BS, no distention, mild right-sided tenderness Back: Lower right-sided tenderness to palpation Skin: Warm, dry Neuro: Cranial nerves II-XII grossly intact bilaterally. Motor grossly intact bilaterally Extremities: 1+ bilateral pitting lower leg edema Psych: Appropriate affect Results Labs 12/09/24 10:27 12/09/24 10:27 Labs: Laboratory Results - last 24 hr 12/09/24 10:27 MCV 89.7 MCH 28.3 MCHC 31.6 RDW 13.7 Plt Count 385 MPV 9.6 Immature Gran % (Auto) 0.3 Neut % (Auto) 61.2 Lymph % (Auto) 27.5 Brooks % (Auto) 5.1 Eos % (Auto) 5.4 H Baso % (Auto) 0.5 Lymph # (Auto) 3.6 Brooks # (Auto) 0.7 Eos # (Auto) 0.7 H Baso # (Auto) 0.1 Abs Immat Gran (auto) 0.04 H Absolute Neuts (auto) 8.0 Absolute Nucleated RBC 0.000 Nucleated RBC % (auto) 0.0 D-Dimer High Sensitivty < 150 Anion Gap 11 L Estim Creat Clear Calc 99.5 Estimated GFR > 60 Random Glucose 97 Calcium 8.9 B-Natriuretic Peptide < 10 Influenza Type A (PCR) NEGATIVE Influenza Type B (PCR) NEGATIVE RSV RNA Qual (PCR) NEGATIVE SARS-CoV-2 RNA (RT-PCR) NEGATIVE Imaging Radiologist's Impressions: Impressions Chest X-Ray 12/09/24 10:50 IMPRESSION: Patchy densities at the lung bases which may represent atelectasis or pneumonia. Electronically signed by: Jose Blount MD 12/09/2024 11:05 AM EDT RP Assessment and Plan (1) Acute hypoxic respiratory failure: Status: Acute Plan Pt is a 54-year-old female with a PMH significant for?hypothyroidism, dnq-udwuodi-aqcakqgke type 2 diabetes on Ozempic hx of substance use disorder silver x9 months, GERD, ADHD, bipolar disorder, and currently residing in a intermediate who presents to the ED from [facility] with?persistent SOB, cough, and generally feeling unwell. Pt is admitted to the hospital for recurrent hypoxia in the setting of possible pneumonia that failed outpatient therapy. Acute hypoxic respiratory failure in the setting of persisted pneumonia that has failed outpatient therapy Pt with continued SOB, MORRISSEY, fatigue, cough, desatting into the 80s with ambulation Pt admitted to the hospital twice in the past month for treatment of the same, most recently discharged 4 days ago on prednisone, azithromycin, and cefuroxime CXR showing patchy densities at lung bases possibly representing atelectasis or pneumonia No sepsis: Leukocytosis secondary to steroid use Will treat with Unasyn, started 12/09/2024 DuoNebs p.r.n., Breo 1 puff daily, prednisone taper Supplemental O2 with ambulation as necessary, wean as tolerated Abd and lower back pain Pt complaining of lower right-sided abd pain radiating to the back Unclear etiology: Possibly musculoskeletal straining from coughing? Will check UA, though pt has been on persistent abx for the past month and pyleo unlikely Abd exam relatively benign, pt without N/V/D Monitor, treat conservatively for now Acute lactic acidosis Lactic acid mildly elevated at 2.2 Secondary to albuterol use, not sepsis Chest pain Likely pleuritic in the setting of prolonged coughing and pneumonia Serial troponins negative, EKG nonischemic Kbo-osmupqq-bknyndzpp type 2 diabetes Sliding-scale insulin Diabetic diet Hypothyroidism Continue levothyroxine ADHD Continue Adderall Mood disorder Continue bupropion, lithium Obesity class 1 Encourage weight loss Full Code, verified with pt Attending:?Dr. Howard DVT Prophylaxis: Lovenox Pt will require a hospitalization of at least two nights for treatment of?acute hypoxic respiratory failure in the setting of recurrent/intractable pneumonia that will require administration IV antibiotics, DuoNebs, supplemental oxygen with ambulation, and close monitoring of respiratory status. Quality Stroke Does the patient have a stroke diagnosis?: No VTE Prior VTE?: No VTE Risk Level:: Medical - moderate - high VTE Device Contraindication: Treatment Not Indicated VTE Drug Contraindication: N/A - Med Ordered
--- NOTE | 2024-12-09 14:08 | PC.NURSE ---
Hypoxia (mid-80s%) on room air during ambulatory pulse oximeter trial. Plan to admit for acute vs chronic hypoxic respiratory failure. Awaiting hospitalist & bed assignment. Care ongoing by this RN.
--- NOTE | 2024-12-09 14:35 | PC.NURSE ---
Phlebotomy at bedside attempting to obtain blood cultures & lactic acid levels. Hospitalist (Oscar Child) also at bedside. Will administer Cefepime upon completion of lab draws.
--- NOTE | 2024-12-09 15:04 | PHA.MEDREC ---
Addendum entered by Sunny Dailey 12/09/24 15:12: reviewed Original Note: Pharmacy Consult ? Medication Reconciliation Pharmacy has completed the medication reconciliation. Spoke with patient and she had a list from the [facility] I was able to confirm. Patient confirmed she started the Azithromycin, Cefuroxime and Prednisone Thursday night. She confirmed she does not takes the Clonidine 0.3mg tab anymore due to it making the patient fell very out of it and it makes her very groggy when doing anything. She confirmed her Zepbound once a week on Mondays and states she couldn't take it this week until Thursday since she was getting out of the ED Thursday night and forgot.
[2024-12-09 15:11] LABS: Lactic Acid 2.2 mmol/L (0.5-2.0)
[2024-12-09] MEDS: 0.9 % Sodium Chloride Flush 3 ML SYRINGE IVFLUSH ×2 (15:41→21:33)
[2024-12-09] MEDS: Enoxaparin Sodium 40 MG/0.4 ML SYRINGE SUBCUT (15:41)
[2024-12-09] MEDS: Ampicillin Sodium/Sulbactam Na 3 GM in 0.9 % Sodium Chloride 100 ML IV ×2 (15:41→21:32)
[2024-12-09 15:42] LABS: Troponin-I High Sensitivity < 2.7 ng/L (<3.5-17.0)
[2024-12-09 15:56] VITALS: BP 106/74; PULSE 77; RESP 18; TEMP 36.8; O2SAT 95
[2024-12-09 16:06] LABS: Alanine Aminotransferase 30 U/L (0-31); Albumin Level 3.7 g/dL (3.5-5.0); Alkaline Phosphatase 73 U/L (39-117); Aspartate Amino Transferase 24 U/L (5-31); Bilirubin Direct < 0.2 mg/dL (0.0-0.5); Bilirubin Total 0.2 mg/dL (0.0-1.0); Total Protein 6.4 g/dL (6.5-8.0)
[2024-12-09 16:20] LABS: Cancel Lactic Acid Canceled
--- NOTE | 2024-12-09 19:25 | PC.NURSE ---
Patient to be admitted to room 383.
[2024-12-09 19:30] VITALS: BP 90/64; PULSE 82; RESP 18; TEMP 36.6; O2SAT 95
[2024-12-09] MEDS: Lithium Carbonate 300 MG CAPSULE PO (20:34)
[2024-12-09] MEDS: clonazePAM 1 MG TABLET PO (20:34)
[2024-12-09 20:59] VITALS: BMI 35.7
[2024-12-09 21:06] VITALS: BP 130/92; PULSE 81; RESP 18; TEMP 36.6; O2SAT 97
[2024-12-09] MEDS: Gabapentin 300 MG CAPSULE PO (21:33)
[2024-12-10] VITALS (7 sets, daily range): BP systolic 116–129; BP diastolic 59–75; PULSE 56–103; RESP 12–18; TEMP 36.2–37.2; O2SAT 93–99
[2024-12-10] MEDS: Levothyroxine Sodium 100 MCG TABLET PO (04:41)
[2024-12-10] MEDS: Omeprazole 20 MG CAPSULE.DR PO ×2 (04:41→17:29)
[2024-12-10] MEDS: Ampicillin Sodium/Sulbactam Na 3 GM in 0.9 % Sodium Chloride 100 ML IV ×4 (04:44→20:36)
[2024-12-10 07:49] LABS: HIV AB/AG Nonreactive (Nonreactive); HIV Num 1 0.06 S/CO (0.00-0.99)
[2024-12-10] MEDS: Lithium Carbonate 300 MG CAPSULE PO ×2 (08:24→20:32)
[2024-12-10] MEDS: Gabapentin 300 MG CAPSULE PO ×4 (08:24→20:32)
[2024-12-10] MEDS: 0.9 % Sodium Chloride Flush 3 ML SYRINGE IVFLUSH ×3 (08:24→20:32)
[2024-12-10] MEDS: Amphetamine Mixed Salts 10 MG TABLET PO ×3 (08:25→15:51)
[2024-12-10] MEDS: predniSONE 20 MG TABLET 40 MG PO (08:25)
[2024-12-10] MEDS: clonazePAM 1 MG TABLET PO ×3 (08:25→20:32)
[2024-12-10] MEDS: buPROPion HCl XL 150 MG TAB.ER.24H PO (08:25)
[2024-12-10] MEDS: Fluticasone/Vilanterol 100/25 BLST.W.DEV 1 PUFF INHALE (11:35)
--- NOTE | 2024-12-10 13:38 | MHC.CM.PN ---
Addendum entered by Gloria Borrego 12/10/24 13:39: PT REPORTS SHE ALSO HAS A WALKER, AND FEELS SHE SHOULD BE USING IT SHE SAYS SHE WOULD HAVE TO HAVE A NOTE INDICATING THIS TO USE IT AT THE [facility] Original Note: PT REPORTS SHE RESIDES AT [facility], A [facility] HOME IN [place] SHE IS INDEPENDENT WITH ALL CARE AND USES A CANE PRN SHE HAS MENTAL HEALTH PROVIDERS SHE SEES VIRTUALLY SHE DECLINES TO COMPLETE A HCP PCP: RAMESH FAULKNER DCP: RETURN TO [facility] VIA PRIVATE TRANSPORT
--- NOTE | 2024-12-10 13:58 | HO.PM.IMPN ---
Subjective Subjective Date of Service: 12/10/24 Interval History: short of breath with exertion coughing without sputum no fever Review of Systems Review of Systems: Yes all other systems are reviewed and are negative Physical Exam Vital Signs: Vital Signs: Last Vital Signs Temp 98.0 F 12/10/24 08:05 Pulse 56 12/10/24 08:05 Resp 12 12/10/24 08:05 BP 118/75 12/10/24 08:05 Pulse Ox 97 12/10/24 13:05 O2 Del Method Room Air 12/10/24 08:05 BMI result Body Mass Index 35.7 Gen: in no acute distress HEENT: sclera anicteric, moist mucus membranes Neck: supple Lungs: diminished at bases bilaterally Heart: regular rate and rhythm, no murmurs Abd: soft, non-tender, non-distended Ext: no edema Skin: warm/well-perfused Neuro: alert and oriented x3, no focal findings Psych: appropriate affect Objective Data Active Medications Acetaminophen (Acetaminophen 325 Mg Tablet) 650 mg PO Q6H PRN PRN Reason: Pain, Mild 1-3,fever,headache Albuterol Sulfate (Albuterol Sulfate 90 Mcg 8 Gm Inhaler) 2 puff INHALE Q4H PRN PRN Reason: Shortness Of Breath Or Wheezing Albuterol/Ipratropium (Albuterol/Iprat 2.5/0.5mg 3 Ml Ampul.Neb) 3 ml INHALE RQ4H WHILE AWAKE PRN PRN Reason: Shortness of Breath/Wheezing Amphetamine/Dextroamphetamine (Amphetamine Mixed Salts 10 Mg Tablet) 10 mg PO TID@0800,1200,1600 [facility] Last Admin: 12/10/24 11:34 Dose: 10 mg Documented By: WILLIE Bupropion HCl (Bupropion Hcl Xl 150 Mg Tab.Er.24h) 150 mg PO DAILY@0800 [facility] Last Admin: 12/10/24 08:25 Dose: 150 mg Documented By: WILLIE Calcium Carbonate (Calcium Carbonate 750 Mg Tab.Chew) 750 mg PO Q4H PRN PRN Reason: Heartburn Clonazepam (Clonazepam 1 Mg Tablet) 1 mg PO TID@0800,1400,2000 [facility] Last Admin: 12/10/24 13:40 Dose: 1 mg Documented By: WILLIE Enoxaparin Sodium (Enoxaparin Sodium 40 Mg/0.4 Ml Syringe) 40 mg SUBCUT Q24H [facility] Last Admin: 12/09/24 15:41 Dose: 40 mg Documented By: BETHANIE Fluticasone/Vilanterol (Fluticasone/Vilanterol 100/25 Blst.W.Dev) 1 puff INHALE RDAILY [facility] Last Admin: 12/10/24 11:35 Dose: 1 puff Documented By: JANA Gabapentin (Gabapentin 300 Mg Capsule) 300 mg PO QID [facility] Last Admin: 12/10/24 13:40 Dose: 300 mg Documented By: WILLIE Ampicillin Sodium/Sulbactam (Sodium 3 gm/ Sodium Chloride) 100 mls @ 200 mls/hr IV Q6H [facility] Last Infusion: 12/10/24 11:35 Dose: Infused Documented By: WILLIE Levothyroxine Sodium (Levothyroxine Sodium 100 Mcg Tablet) 100 mcg PO DAILY@0600 [facility] Last Admin: 12/10/24 04:41 Dose: 100 mcg Documented By: CINDI [place] Carbonate ([place] Carbonate 300 Mg Capsule) 300 mg PO BID@0800,2000 [facility] Last Admin: 12/10/24 08:24 Dose: 300 mg Documented By: WILLIE Magnesium Hydroxide (Milk Of Magnesia 30 Ml Oral.Susp) 30 ml PO DAILY PRN PRN Reason: Constipation Melatonin (Melatonin 3 Mg Tablet) 6 mg PO BEDTIME PRN PRN Reason: Insomnia Omeprazole (Omeprazole 20 Mg Capsule.Dr) 20 mg PO BID@0630,1630 [facility] Last Admin: 12/10/24 04:41 Dose: 20 mg Documented By: CINDI Ondansetron HCl (Ondansetron Hcl 4 Mg/2 Ml Vial) 4 mg IVPUSH Q8H PRN PRN Reason: Nausea and Vomiting Prednisone (Prednisone 20 Mg Tablet) 40 mg PO DAILY [facility] Last Admin: 12/10/24 08:25 Dose: 40 mg Documented By: WILLIE Sodium Chloride (0.9 % Sodium Chloride Flush 3 Ml Syringe) 3 ml IVFLUSH QSHIFT [facility] Last Admin: 12/10/24 08:24 Dose: 3 ml Documented By: WILLIE Labs 12/09/24 10:27 12/09/24 10:27 Labs: Laboratory Results - last 24 hr 12/09/24 12/09/24 12/10/24 14:43 15:46 05:35 Hold Purple Top SEE NOTE Lactic Acid 2.2 H* Total Bilirubin 0.2 Direct Bilirubin < 0.2 AST 24 ALT 30 Alkaline Phosphatase 73 Total Protein 6.4 L Albumin 3.7 Hold Green Top Cancelled HIV 1&2 Ab/P24 Ag 4thGn Nonreactive Assessment and Plan (1) Pneumonia: Status: Acute Plan d2 for 54yo F [facility] resident with DM2, hypothyroidism, substance abuse sober x9mo, GERD, ADHD, bipolar disorder; re-admitted for hypoxia due to persistent asthma pneumonia, persistent - recently treated with prednisone, azithromcyin and cefuroxime. HIV negative, negative autoimmune workup. On ampicillin-sulbactam 12/09-, prednisone taper, nebs, outpt PFTs, encouarge IS acute hypoxic respiratory failure - weaned off O2 lactic acidosis - due to albuterol, not sepsis chest pain - due to coughing; give lidocaine patch as needed DM2 - correction-dose lispro, DM diet hypothyroidism - continue LT4 ADHD - Adderall bipolar disorder - lithium, bupropion, clonazepam VTE ppx - enoxaparin dispo - eventual return to [place] [facility] In my clinical judgment, the patient requires continued inpatient hospitalization for the following reasons: IV ABX for failure of outpt therapy Total time managing care of this patient today: 35 minutes. Quality Stroke Does the patient have a stroke diagnosis?: No VTE Prior VTE?: No VTE Risk Level:: Medical - moderate - high VTE Device Contraindication: Treatment Not Indicated VTE Drug Contraindication: N/A - Med Ordered
[2024-12-10] MEDS: Enoxaparin Sodium 40 MG/0.4 ML SYRINGE SUBCUT (15:50)
[2024-12-10] MEDS: Albuterol/Iprat 2.5/0.5MG 3 ML AMPUL.NEB INHALE (22:40)
[2024-12-11 03:06] VITALS: BP 114/80; PULSE 94; RESP 18; TEMP 36.7; O2SAT 94
[2024-12-11] MEDS: Omeprazole 20 MG CAPSULE.DR PO (05:28)
[2024-12-11] MEDS: Levothyroxine Sodium 100 MCG TABLET PO (05:28)
[2024-12-11] MEDS: Ampicillin Sodium/Sulbactam Na 3 GM in 0.9 % Sodium Chloride 100 ML IV ×2 (05:30→10:14)
[2024-12-11] MEDS: guaiFEN/Codeine SF 200/20/10ML 10 ML LIQUID 5 ML PO (05:54)
--- NOTE | 2024-12-11 05:56 | MHC.PIE ---
p; pt c/o cough asking for cough med. note; pt admitted with AHRF/PNA, this admission is 3rd admission in a month. i; dr ratliff notified. new order cait AC e; will cont to monitor
[2024-12-11 07:46] VITALS: BP 109/64; PULSE 70; RESP 18; TEMP 36.6; O2SAT 97
[2024-12-11] MEDS: Fluticasone/Vilanterol 100/25 BLST.W.DEV 1 PUFF INHALE (08:14)
[2024-12-11 08:16] VITALS: PULSE 80; RESP 18; O2SAT 96
[2024-12-11] MEDS: predniSONE 20 MG TABLET 40 MG PO (08:22)
[2024-12-11] MEDS: Amphetamine Mixed Salts 10 MG TABLET PO ×2 (08:22→11:47)
[2024-12-11] MEDS: clonazePAM 1 MG TABLET PO ×2 (08:22→13:19)
[2024-12-11] MEDS: Lithium Carbonate 300 MG CAPSULE PO (08:23)
[2024-12-11] MEDS: Gabapentin 300 MG CAPSULE PO ×2 (08:23→13:19)
[2024-12-11] MEDS: buPROPion HCl XL 150 MG TAB.ER.24H PO (08:23)
[2024-12-11] MEDS: 0.9 % Sodium Chloride Flush 3 ML SYRINGE IVFLUSH (08:23)
--- NOTE | 2024-12-11 10:39 | P.DS_ITS ---
DS: Providers Provider Date of Service: 12/11/24 Date of admission: 12/09/24 14:01 Date of discharge: 12/11/24 Primary care physician: JUVENTINO Awad DS: Diagnosis Discharge Diagnosis (1) Pneumonia: Status: Acute (2) Acute hypoxic respiratory failure: Status: Acute DS: Summary Hospital Course Hospital Course: From the history and physical by the admitting hospitalist, NIMESH Child, 12/09/24: Pt is a 54-year-old female with a PMH significant for?hypothyroidism, dfl-brfxvei-ltmvmvayw type 2 diabetes on Ozempic hx of substance use disorder silver x9 months, GERD, ADHD, bipolar disorder, and currently residing in a long term who presents to the ED from [facility] with?persistent SOB, cough, and generally feeling unwell. This is patient's 3rd admission to the hospital for similar symptoms, initially on 11/18/2024 and more recently on 12/02/2024 after being admitted and treated for acute hypoxic respiratory failure due to pneumonia vs pneumonitis. While admitted pt had pulmonary workup that thought GLP1 was likely contributory to patient's symptoms. Was discharged on 12/05 on prednisone, cefuroxime, and azithromycin x5 days. Reports initially felt much better after being discharged. However yesterday pt began experiencing lightheadedness, dizziness, and SOB again that was not alleviated by home inhalers. That night was awoken from sleep at least twice with prolonged coughing fits that lasted 1-2 hours at a time. This morning pt was noted to be desatting with ambulation and was sent to the ED for further evaluation. Pt also complains of right lower abdominal pain radiating to her back that she reports is new. States her back feels like it has been ?hit by a truck?. Also complains of chest tightness and pressure worsened with deep breathing and cough. Denies polyuria or dysuria. Denies fever, chills, nausea, vomiting. In the ED pt was afebrile and satting at 94% on RA at rest, though desatting to 88 % with ambulation. Labs were significant for leukocytosis 13.1, otherwise grossly unremarkable and around baseline for pt. Stable H&H. D-dimer negative. No significant electrolyte abnormalities. Renal function baseline. Tested negative for flu, COVID, RSV. CXR showed patchy densities at lung bases which may represent atelectasis or pneumonia. EKG demonstrated normal sinus rhythm with nonspecific T-wave inversions in leads III and V1. Pt was treated in the ED with DuoNebs, IVF, and cefepime. Pt is admitted to the hospital for recurrent hypoxia in the setting of possible pneumonia that failed outpatient therapy. 54yo F residing at a sober living house with DM2, hypothyroidism, substance abuse sober x9mo, GERD, ADHD, bipolar disorder; re-admitted for hypoxia due to persistent, prolonged pneumonia with concern for reactive airways disease. She had recently been treated with prednisone, azithromcyin and cefuroxime. HIV negative, negative autoimmune workup. Treated with ampicillin-sulbactam 12/09- 12/11 as well as prednisone and Breo and improved to the point where she was weaned off O2 and discharged home on amoxicillin-clavulanate as well as prednisone taper and Breo inhaler. She should follow up with her primary care doctor in 1-2 weeks and obtain pulmonary function tests. Time Attestation Discharge Coordination Time (in mins): 35 Quality: Safe Use of Opioids Does Pt have an Active Cancer Diagnosis on the Problem List?: No Quality: Stroke Does the patient have a stroke diagnosis?: No Physical Exam Vital Signs: Vital Signs: Last Vital Signs Temp 97.8 F 12/11/24 07:46 Pulse 80 12/11/24 08:16 Resp 18 12/11/24 08:16 BP 109/64 12/11/24 07:46 Pulse Ox 97 12/11/24 07:46 O2 Del Method Room Air 12/11/24 07:46 BMI result Body Mass Index 35.7 DS: Data Data Completed and Pending Labs on day of discharge: Preliminary micro results at discharge 12/09/24 14:43 Blood Culture - Preliminary Blood - Venous No growth after 24 hours. 12/09/24 14:43 Blood Culture - Preliminary Blood - Venous No growth after 24 hours. Discharge Plan Discharge Anticipated Discharge Date/Time: 12/11/24 10:35 Patient Disposition: Home, Self-Care Discharge Diagnosis: pneumonia Referrals: Leah Lewis FNP [Primary Care Provider] - 1 Week Discharge Medications: New fluticasone furoate-vilanterol [Breo Ellipta] 100-25 mcg/dose Blister With Device 1 inh inhalation RDAILY Qty: 30 0RF amoxicillin-pot clavulanate 875-125 mg tablet 1 tab PO BID Qty: 10 0RF prednisone 10 mg tablet See Rx Instructions .ROUTE .COMPLEX Qty: 20 0RF Rx Instructions: 40 mg (4 tabs) daily for 2 days, then 30 mg (3 tabs) daily for 2 days, then 20 mg (2 tabs) daily for 2 days, then 10 mg (1 tab) daily for 2 days Continued bupropion HCl 150 mg tablet sustained-release 12 hr 150 mg PO DAILY@0800 dextroamphetamine-amphetamine 10 mg tablet 1 tab PO TID@0800,1200,1600 clonazepam 1 mg tablet 1 mg PO TID@0800,1400,2000 levothyroxine 100 mcg Tablet 100 mcg PO DAILY@0600 lithium carbonate 300 mg Capsule 300 mg PO BID@0800,2000 gabapentin 300 mg Capsule 300 mg PO QID Rx Instructions: Taken at 0800,1200,1600,2000. omeprazole 20 mg Tablet,Delayed Release (Dr/Ec) 20 mg PO BID@0630,1630 melatonin 5 mg Tablet 10 mg PO BEDTIME PRN (Reason: Sleep) acetaminophen 500 mg Tablet 1,000 mg PO Q6H PRN (Reason: Pain) Zepbound 2.5 mg/0.5 mL Solution 0.5 mg SUBCUT MO albuterol sulfate [Ventolin HFA] 90 mcg/actuation HFA aerosol inhaler 2 puff inhalation Q3-4H PRN (Reason: Shortness Of Breath Or Wheezing) Discontinued prednisone 20 mg Tablet 40 mg PO DAILY Qty: 10 0RF cefuroxime axetil 500 mg tablet 500 mg PO BID Qty: 10 0RF azithromycin 500 mg tablet 500 mg PO DAILY 5 Days Qty: 5 0RF Discharge Orders: Discharge Order (Routine); Ordered 12/11/24 Ordered By: Norm Howard Diet: Advance to usual diet Activity on Discharge: As tolerated Stand Alone Forms: Patient Portal Discharge page Print Language: Kazakh Care Plan Goals: respiratory health Health Concerns: pneumonia Plan of Treatment: amoxicillin-clavulanate twice daily for 5 days prednisone 10 mg tabs, taper as follows: 40 mg (4 tabs) daily x 2 days, then 30 mg (3 tabs) daily x 2 days, then 20 mg (2 tabs) daily x 2 days, then 10 mg (1 tab) daily x 2 days use Breo inhaler once daily ambulate with walker as needed follow up with your primary care doctor in 1-2 weeks and request PULMONARY FUNCTION TESTING Return to the hospital if you experience recurrent or worsening symptoms. Assessment: See Discharge Summary.
[2024-12-11 11:39] VITALS: PULSE 86; PULSE 96; O2SAT 91; O2SAT 95
[2024-12-11 14:08] VITALS: BP 131/83; PULSE 93; RESP 20; TEMP 36.5; O2SAT 94
== END 2024-12-11 14:54 | disposition home or self-care (01) | DRG 139 ==
LOC: HO.ED 14:01 → HO.EDOVER 14:10 → HO.S3 15:26 → HO.EDOVER 17:07 → HO.S3 19:23
PROVIDERS: Admitting Provider Student in an Organized Health Care Education/Training Program; Emergency Provider Emergency Medicine Emergency Medical Services; PCP Nurse Practitioner Family; Visit Provider Family Medicine
DX: J18.9 Pneumonia, unspecified organism (principal); J96.01 Acute respiratory failure with hypoxia; E87.21 Acute metabolic acidosis; E03.9 Hypothyroidism, unspecified; F19.11 Other psychoactive substance abuse, in remission; J98.11 Atelectasis; F31.9 Bipolar disorder, unspecified; E11.9 Type 2 diabetes mellitus without complications; F90.9 Attention-deficit hyperactivity disorder, unspecified type; Z20.822 Contact with and (suspected) exposure to COVID-19; Z79.51 Long term (current) use of inhaled steroids; Z79.890 Hormone replacement therapy; Z79.899 Other long term (current) drug therapy
CPT/HCPCS: 0241U; 36415; 71045; 80048; 80076; 83605; 83880; 84484; 85025; 85379; 87040; 87389; 93005; 94640; 97161; 99285; J0295; J1650

== ENCOUNTER → 2024-12-09 10:05 | Outpatient (BNV) | payer MEDICAID, SELFPAY | PROVIDERS: Emergency Provider Emergency Medicine Emergency Medical Services; PCP Nurse Practitioner Family; Visit Provider Radiology Diagnostic Radiology | DX: R91.8 Other nonspecific abnormal finding of lung field (principal) | CPT/HCPCS: 71045 ==

== ENCOUNTER → 2024-12-09 10:10 | Outpatient (BNV) | payer MEDICAID, SELFPAY | PROVIDERS: Emergency Provider Emergency Medicine Emergency Medical Services; PCP Nurse Practitioner Family; Visit Provider Internal Medicine Cardiovascular Disease | DX: R94.31 Abnormal electrocardiogram [ECG] [EKG] (principal); R06.02 Shortness of breath | CPT/HCPCS: 93010 ==

== ENCOUNTER → 2024-12-09 14:01 | Outpatient (BNV) | payer MEDICAID, SELFPAY | PROVIDERS: Admitting Provider Student in an Organized Health Care Education/Training Program; Emergency Provider Emergency Medicine Emergency Medical Services; PCP Nurse Practitioner Family; Visit Provider Student in an Organized Health Care Education/Training Program | DX: J18.9 Pneumonia, unspecified organism (principal); J96.01 Acute respiratory failure with hypoxia | CPT/HCPCS: 99223; 99232; 99239 ==

== ENCOUNTER 2025-01-10 14:02 | Outpatient (REF) | payer MEDICAID, SELFPAY ==
--- NOTE | ~2025-01-10 | FL_ITS ---
EXAMINATION: XR BARIUM SWALLOW CLINICAL INFORMATION: Dysphagia. COMPARISON: None available. TECHNIQUE: Modified barium swallow was performed under lateral fluoroscopy in presence of speech therapist. FINDINGS: Following oral administration of thin barium there is trace laryngeal penetration but no aspiration. On oral administration of thick consistency barium there is normal propagation bolus through the oral cavity, pharynx into the upper esophagus. On oral administration of barium coated saltine cracker there is normal oral mastication and propagation bolus through the pharynx into the esophagus. There is no retention of barium in the relative piriform sinuses. Incidental finding of a ventral plate and screws from C3 to T1 vertebra . There is bony fusion between the C3 and C4 vertebra and prosthetic disc at C4-5, C5-6 and C7-T1 disc levels. FLUOROSCOPY TIME: 1 minute 52 seconds DOSE AREA PRODUCT: 1935 uGy-m2 (microgray-meter squared) FL/FL Modified Barium Swallow IMPRESSION: Trace laryngeal penetration with thin barium otherwise unremarkable modified barium swallow exam. Correlate with speech therapy results. Electronically signed by: Prasanth Reyes MD 01/10/2025 04:21 PM EDT
--- OUTSIDE RECORDS SUMMARY | 2025-01-10 16:09 | XMS_ITS | Encounter Summary ---
Author Organization [employer] Address [address] [place] [address] Care Team Providers Care Reference Archivist Name Role Phone Leah Lewis Primary Care Provider [phone] Encounter Details Date Type Department Care Team (Late st Contact Info) Description 06/02/2024 Orders Only [facility] [address] [place] [id number] Leah Lewis FNP [address] [place] [address] Social History Tobacco Use Types [...] Care Team (Late st Contact Info) Description 01/30/2025 2:00 PM EDT Office Visit [address] [address] Leah Lewis FNP [address] [place] [id number] 10/09/2025 1:00 PM EDT Office Visit [address] [id number] Leah Lewis FNP [address] [place] [phone] documented as of this encounter Visit Diagnoses Not on filedocumented in this encounter Care Teams Reference Archivist Relationship Specialty Start Date End Date Leah Lewis FNP [address] [place] [id number] PCP - General Family Medicine 03/11/24 documented as of this encounter
--- NOTE | 2025-01-11 09:17 | MHC.SL.IMP ---
Date of Plan of Treatment: 01/10/25 Onset of Symptoms/Illness: 01/10/15 Date Treatment Started: 01/10/25 Admitting Diagnosis: Pneumonia due to infectious organism, unspecified laterally, unspecified part of lung (J18.9) Primary Speech & Language Diagnosis: R13.12 Oropharyngeal Phase Dysphagia Reason for Today's Visit: 26261 Modified Barium Swallow Study Pre-evaluation Dietary Consistencies: Regular Pre-evaluation Liquid Consistency: Thin Pre-evaluation Medication Administration: Whole with Liquid Medical History: Modified Barium Swallow Study Fluoroscopic Evaluation of Swallowing Function CPT Code 35219 Evaluation Year: 2024 Reason for Study: possible aspiration pneumonia Referring Physician: Yuli Goodman PA-C Evaluating Clinician: Alla Steve MA, CCC-PHOTO PRINTER Study Number: 1 Patient Name: Ayesha Ardon Status: Outpatient, Ambulatory Age: 54 Sex: Female Medical History Medical History Pneumonitis Pulmonary nodules Type 2 diabetes mellitus without complications GERD (gastroesophageal reflux disease) ADHD Hypothyroidism Bipolar 1 disorder Current (pre-evaluation) Intake/Diet: Route: PO Diet Grade: Regular Liquid Consistencies: Thin Pre-Study Functional Oral Intake Scale (FOIS): 7- Total oral intake with no restrictions Pain: None reported at time of study SUBJECTIVE: Patient is a 54 year old female referred for a modified barium swallow study (MBSS) by Yuli Goodman PA-C from [facility] in [place] due to concerns of possible aspiration pneumonia. Patient was recently hospitalized on 12/02/24 with acute hypoxic respiratory failure due to pneumonia. She was seen by a speech pathologist during her stay at [facility], who had recommended a soft diet and further testing with an MBSS. Patient reports chronic dysphagia after having 2 neck surgeries over 10 years ago and having difficulty swallowing after the procedures. She also notes having 3 recent episodes of pneumonia. Patient reports swallowing is effortful and can feel food sticking in her throat. She also reports significant reflux, with burning sensation in her chest and keeping a bucket next to her bed every night for vomiting. Patient reports vomiting up ?just liquid.? She says she takes omeprazole with no improvement in her symptoms. She reports eating ?mostly vegetables,? tofu, and smoothies. Note history of GERD, diabetes, hx substance abuse. Patient resides at [facility] sober living home in [place]. Food and Liquid Trials: Oral Impairment: Lip Closure: Did not test Oral Impairment: Tongue Control During Bolus Hold: 2=Posterior escape of less than half of bolus Oral Impairment: Bolus Preparation/Mastication: 0=Timely and efficient chewing and mashing Oral Impairment: Bolus Transport/Lingual Motion: 1= Delayed initiation of tongue motion Oral Impairment: Oral Residue: 1=Trace residue lining oral structures Oral Impairment:Initiation of Pharyngeal Swallow: 3=Bolus head in pyriforms Pharyngeal Impairment: Soft Palate Elevation: 0=No bolus between soft palate (SP)/pharyngeal wall (PW) Pharyngeal Impairment: Laryngeal Elevation: 2=Minimal superior movement of thyroid cartilage (see description) Pharyngeal Impairment: Anterior Hyoid Excursion: 2=No anterior movement Pharyngeal Impairment: Epiglottic Movement: 2=No inversion Pharyngeal Impairment: Laryngeal Vestibular Closure:: 1=Incomplete: narrow column air/contrast in laryngeal vestibule Pharyngeal Impairment: Pharyngeal Stripping Wave: 1=Present: diminished Pharyngeal Impairment: Pharyngeal Contraction: Did not test Pharyngeal Impairment: Pharyngoesophageal Segment Openin=Partial distention/partial duration: partial obstruction of flow Pharyngeal Impairment: Tongue Base (TB) Retraction: 1=Trace column of contrast/air between TB and posterior PW Pharyngeal Impairment: Pharyngeal Residue: 2=Collection of residue within or on pharyngeal structures Pharyngeal Impairment: Esophageal Clearance Upright Position: Did not test Impressions and Recommendations Clinical Observations: OBJECTIVE: Time-out: performed at 15:00 Evaluation Start: 14:30; Stop: 14:40 Patient Positioning: Standing Viewing Planes: LATERAL ONLY Contrast: MBSImP? Standardized Protocol using commercially prepared, standardized Barium viscosities, including: Varibar? THIN LIQUID (40% w/v, <15 cps) , Varibar? PUDDING (40% w/v, <6985-1661 cps) , 1/2 Shortbread Cookie (1 x1 x.25 ) MBSImP ID: [id number] MBSImp Results: Lip closure for intraoral bolus containment could not be assessed due to logistical reasons not related to physiologic impairment. Tongue control during bolus hold resulted in posterior escape of less than half of the bolus. Bolus preparation and mastication resulted in timely and efficient chewing and mashing. Bolus transport/lingual motion demonstrated delayed initiation of tongue motion. Oral residue was a trace, lining oral structures. Initiation of the pharyngeal swallow occurred when the bolus head was in the pyriform sinuses. Soft palate elevation resulted in no bolus between the soft palate and the pharyngeal wall. Laryngeal elevation was incomplete, as indicated through minimal superior movement of the thyroid cartilage with minimal approximation of the arytenoids to the epiglottic petiole. Anterior hyoid excursion demonstrated no movement. Epiglottic movement resulted in no inversion. Laryngeal vestibular closure was incomplete, with a narrow column of air/contrast noted within the laryngeal vestibule at the height of the swallow. Pharyngeal stripping wave was present, but diminished. Pharyngeal contraction could not be determined due to logistical reasons not related to physiologic impairment. Pharyngoesophageal segment opening demonstrated partial distension/partial duration, with partial obstruction of bolus flow. Tongue base retraction allowed a trace column of contrast or air between the retracted tongue base and the posterior pharyngeal wall. Pharyngeal residue was a collection of residue within or on pharyngeal structures. Esophageal clearance in the upright position could not be assessed due to logistical reasons not related to physiologic impairment. Oral Impairment Score: 6 (absence of score, component 1) Pharyngeal Impairment Score: 11 (absence of score, component 13) Esophageal Impairment Score: --- (absence of score, component 17) Laryngeal Penetration and Aspiration: Neither penetration nor aspiration was observed in today's study with Cookie, Pudding-thick. Penetration was observed in today's study. Thin Contrast entered the airway, remained above the vocal folds, and was ejected from the airway. ASSESSMENT: This exam was performed by the radiologist and the speech pathologist. Patient was standing for lateral view only. She fed herself without difficulty and trialed the following consistencies: Thin liquid (individual sips & rapid sips via cup) Puree (mixture applesauce w/ barium pudding) Regular (Nora Doone cookie coated with barium pudding) Note poor tongue control with premature posterior spilling to the valleculae and pyriforms prior to initiation of the pharyngeal swallow trigger. Mastication was timely and efficient. Posterior lingual movement was delayed. There was trace lingual residue which cleared on secondary swallows. Pharyngeal swallow trigger was significantly delayed. No evidence of nasopharyngeal reflux. Note minimal laryngeal elevation with partial and at times no epiglottic inversion. Incomplete laryngeal vestibular closure. There was evidence of penetration intermittently with trials of thin liquid. A trace amount of liquid entered the laryngeal vestibule above the vocal folds and spontaneously cleared. No evidence of aspiration during this exam. There was minimal retention in the valleculae on both solids and liquids, which cleared with secondary swallows that were spontaneously elicited. Note partial distention through the pharyngoesophageal segment opening. Per radiologist: ?Incidental finding of a ventral plate and screws from C3 to T1 vertebra. There is bony fusion between the C3 and C4 vertebra and prosthetic disc at C4-5, C5-6 and C7-T1 disc levels.? The following compensatory strategies have not been used until today's study, but when employed, improved swallowing function: Additional Swallow(s) per Bolus eliminated Penetration, Oral Residue, Pharyngeal Residue Liquid Intake Recommendation: Thin Liquid Intake Strategies: Small Sips, No Straws Dietary Recommendations: Regular Medication Administration: Whole with Liquid Please contact the pharmacy regarding appropriate crushable or liquid drug formulations that are available whenever modified delivery is recommended. Compensatory Strategies Recommended: Sitting Upright (90 deg), Double Swallow, No Straw, Small Bites and Sips, Alternate Liquids/Solids, Rate of Ingestion Change Recommended Treatments: Compens. Strategy Educat. Recommendation for Speech Therapy: Outpatient Speech Therapy Text Comment: Intake Recommendations: Route: PO Diet Grade: Regular Liquid Consistencies: Thin Post-Study Functional Oral Intake Scale (FOIS): 7- Total oral intake with no restrictions Patient presents with mild oropharyngeal dysphagia, with recent hospitalizations for pneumonia, history of neck surgery 10+ years ago, and cervical hardware seen at C3-C7 level. Oral phase was marked by poor tongue control, premature posterior spillage, and delayed tongue movement. Pharyngeal swallow trigger was also delayed and airway protection compromised, with minimal laryngeal elevation, partial to no epiglottic inversion, and incomplete laryngeal vestibular closure. There was trace penetration seen with trials of thin liquid, which spontaneously cleared. No evidence of aspiration during this exam. Mild vallecular retention cleared with secondary swallows. At the end of the exam, patient complained of globus sensation in her pharynx, however, imaging showed complete clearance. Additionally, patient complains of significant reflux with vomiting episodes and heartburn symptoms. She takes omeprazole but reports no improvement. Suggested Referrals: The patient might benefit from a referral to: Gastroenterology Indication for Referral: Patient reporting significant reflux & globus sensation, MBSS showing good oral and pharyngeal clearance, concern for esophageal involvement Therapy Recommendations: Therapy will be initiated Frequency per Week: 1 Number of Weeks: 1 Recommend 1 follow-up visit with a speech pathologist for further education in regards to MBSS findings and recommended aspiration precautions: -maintain upright position while eating and for at least 30 minutes afterwards -take small bites and chew well -alternate bites of food with sips of liquid -dry swallow between bites/sips -avoid the use of straws -take one sip at a time by teaspoon or cup The following compensatory strategies and/or therapeutic exercises will be part of the upcoming therapy/management plan: Additional Swallow(s) per Bolus Security Software Engineer Goals: ? The patient and/or family will participate in further education for swallowing goals. Short Term Goals: ? Guidelines - The patient will comply with/recall the following guidelines/strategies 100% of the time with no cuing: Bolus Volume Change, Rate of Ingestion Change, Additional Swallow(s) per Bolus. ? Education - The patient will verbalize/demonstrate understanding of the results of this evaluation, the above recommendations, and the swallowing guidelines. Frequency/Duration: 1 follow-up Date Range for Service Requested: Timeline to reassess: PRN Clinician - Supplemental, Miscellaneous Communication: It is important to note MBSS objective studies are snapshots in time and Patient function might vary with factors such as time of day or concomitant medical conditions. For this reason, the final treatment plan for this patient should rest with their medical care team. Additional recommendations should be considered with the totality of the Patient in mind. Thank for the opportunity to participate in the care of this patient. If you have any questions about the content of this report, please contact the [facility] at . Education: Education regarding findings from today's study and plans for therapy were provided to Patient only through Verbal Instruction. Understanding was expressed by the Patient only. Liner Machine Operator Helper Clinician/Clinical Fellow: No Supervisory Statement: N/A Speech Language Pathologist: Alla Steve M.A., CCC-PHOTO PRINTER
== END 2025-01-10 14:03 | disposition home or self-care (01) ==
LOC: HO.XRAY 14:02
PROVIDERS: PCP Nurse Practitioner Family; Visit Provider Student in an Organized Health Care Education/Training Program
DX: J18.9 Pneumonia, unspecified organism (principal)
CPT/HCPCS: 74230; 92611

== ENCOUNTER → 2025-01-10 14:04 | Outpatient (BNV) | payer MEDICAID, SELFPAY | PROVIDERS: PCP Nurse Practitioner Family; Visit Provider Radiology Diagnostic Radiology | DX: R13.10 Dysphagia, unspecified (principal) | CPT/HCPCS: 74230 ==